=== PATIENT | female | born 1945 | race Caucasian/White ===

== ENCOUNTER 2017-03-19 10:26 | Emergency (ER) | payer MEDICARE, OTHER ==
[~2017-03-19] VITALS: Ht 162.6 cm; Wt 86.2 kg
[~2017-03-19 10:26] MED LIST: AMLODIPINE BESY10 MG PO; ARMOUR THYROID180 MG PO; FLUCONAZOLE200 MG PO; IBUPROFEN600 MG PO; METAFOLBIC TAB1 EACH PO
== END 2017-03-19 10:46 | disposition home or self-care (01) ==
LOC: ED 10:26
DX: S81.832A Puncture wound without foreign body, left lower leg, initial encounter (principal); Z00.8 Encounter for other general examination; W22.8XXA Striking against or struck by other objects, initial encounter

== ENCOUNTER 2020-01-09 12:10 | Emergency (ER) | payer MEDICARE, OTHER ==
[~2020-01-09] VITALS: Ht 162.6 cm; Wt 86.2 kg
--- OUTSIDE RECORDS SUMMARY | ~2020-01-09 | XMS | Encounter Summary ---
Demographics + + + | Address | [address] | | | [place] [address] | + + + | Home Phone | | + + + | Preferred Language | Unknown | + + + | Marital Status | | + + + | Adventism Affiliation | 1013 | + + + | Race | Unknown | + + + | Ethnic Group | Unknown | + + + Author + + + | Author | [facility] | | | and [place] | + + + | Organization | [facility] | | | and [place] | + + + | Address | Unknown | + + + | Phone | Unavailable | + + + Support + + +---------+ + | Name | Relationship | Address | Phone | + + +---------+ + | Sue Lombardo | ECON | Unknown | | + + +---------+ + Care Team Providers + +------+ + | Care Telephone Lineworker Name | Role | Phone | + +------+ + | Thi Hutton MD | PCP | | + +------+ + Encounter Details +--------+ + + + + | Date | Type | Department | Care Team | Description | +--------+ + + + + | 05/21/ | Orders Only | [facility] | Brice Odonnell | Lumbar radiculopathy | | 2018 | | PHYSIATRY [address] | [address] | (Primary Dx) | | | | [address] | [address] [place], [place] | | | | | [place] | [address] | | | | | [address] | | | | | | [phone] | | | +--------+ + + + + Social History + +-------+ +--------+------+ | Tobacco Use | Types | Packs/Day | Years | Date | | | | | Used | | + +-------+ +--------+------+ | Never Smoker | | | | | + +-------+ +--------+------+ + +---+---+---+ | Smokeless Tobacco: | | | | | Never Used | | | | + +---+---+---+ + + +---------+ + | Alcohol Use | Drinks/Week | oz/Week | Comments | + + +---------+ + | No | | | | + + +---------+ + + + + | Sex Assigned at | Date Recorded | | | | + + + | Not on file | | + + + + + + + | Job Start Date | Occupation | Industry | + + + + | Not on file | Not on file | Not on file | + + + + + + + + | Travel History | Travel Start | Travel End | + + + + + + | No recent travel history available. | + + documented as of this encounter Plan of Treatment +--------+---------+ + + + | Date | Type | Specialty | Care Team | Description | +--------+---------+ + + + | 06/27/ | Office | Nephrology | Pillo Condon MD | | | 2020 | Visit | | [address] [facility] | | | | | | [address] [facility] | | | | | | [address] | | | | | | | | +--------+---------+ + + + documented as of this encounter Results FL JANKI Lumbar Transforaminal (06/05/2018 2:54 PM PDT) + + | Specimen | + + | | + + + + + | Narrative | Performed At | + + + | 06/05/2018 | [facility] | | Transforaminal Epidural Steroid InjectionDiagnosis: Lumbar | | | radiculopathyICD-10 Code M54.16 Jojo Gracia presents to the | | | fluoroscopy suite for a fluoroscopically-guided left L4-L5 | | | transforaminal epidural steroid injection as part of conservative | | | management for chronic pain with lumbar radiculopathy and degenerative | | | disc disease. After informed consent was obtained, the patient lay | | | in the prone position on the fluoroscopy table. The area was | | | identified under fluoroscopic guidance. The area was prepped and | | | draped in sterile fashion. A 25-gauge, 1.5-inch needle was inserted | | | into this region and approximately 3 mL of buffered 1% lidocaine was | | | infused. Then, a 22-gauge spinal needle was inserted into the | | | posterior superior transforaminal space and advanced into the epidural | | | space under fluoroscopic guidance. Confirmation into the epidural | | | space was obtained with infusion of approximately 1 mL of Omnipaque | | | contrast which showed epidural flow as well as nerve sheath flow. | | | Then, a combination of 1.5 mL of 1% lidocaine and 1.5 mL of 6 | | | mg/mL betamethasone was infused. The patient tolerated the procedure | | | well without complications. Pre- and post-procedure blood pressures | | | were stable. The patient was given verbal as well as written | | | follow-up instructions. Prior to the start of the procedure, the | | | following were performed and/or verified, including correct patient | | | identity, correct site/side marked and visible, agreement on the | | | procedure to be done, correct patient positioning and an accurate | | | procedure consent form. Any safety precautions based on clinical | | | history and/or medication use have been addressed. I personally | | | performed the procedure above. Estimated blood loss: | | | MinimalComplications: NoneFindings: As expectedAnesthesia: Local | | | 1% Lidocaine | | |addressed. | | |I personally performed the procedure above. | | | | | |Estimated blood loss: Minimal | | |Complications: None | | |Findings: As expected | | |Anesthesia: Local 1% Lidocaine | | | | | + + + + +---------+ + + | Performing | Address | City/State[facility] | Phone Number | | Organization | | | | + +---------+ + + | [facility] | | | | + +---------+ + + documented in this encounter Visit Diagnoses + + | Diagnosis | + + | Lumbar radiculopathy - Primary Thoracic or lumbosacral neuritis or radiculitis, | | unspecified | + + documented in this encounter"
--- OUTSIDE RECORDS SUMMARY | ~2020-01-09 | XMS | Encounter Summary ---
Demographics + + + | Address | [address] | | | [place] [address] | + + + | Home Phone | | + + + | Preferred Language | Unknown | + + + | Marital Status | | + + + | Lutheran Affiliation | 1013 | + + + | Race | Unknown | + + + | Ethnic Group | Unknown | + + + Author + + + | Author | [facility] | | | and [place] | + + + | Organization | [facility] | | | and [place] | + + + | Address | Unknown | + + + | Phone | Unavailable | + + + Support + + +---------+ + | Name | Relationship | Address | Phone | + + +---------+ + | Sue Grupo | ECON | Unknown | | + + +---------+ + Care Team Providers + +------+ + | Care Window Systems Administrator Name | Role | Phone | + +------+ + | Thi Hutton MD | PCP | | + +------+ + Encounter Details +--------+ + + + + | Date | Type | Department | Care Team | Description | +--------+ + + + + | 06/16/ | [facility] | [facility] | Steve Vogel, | Lumbar radiculopathy | | 2019 | Encounter | MED CTR XRAY [address] | PA-C [address] | | | | | [place] | [address] [place] | | | | | [place] [address] | [place] [address] | | | | | [phone] | [phone] | | | | | | | | +--------+ + + + [...] + + documented as of this encounter Medications at Time of Discharge + + + +---------+ + + | Medication | Sig | Dispensed | Refills | Start | End Date | | | | | | Date | | + + + +---------+ + + | cholecalciferol | Take 2,000 Units by | | 0 | | | | (CHOLECALCIFEROL) | mouth Daily. | | | | | | 1000 units TABS | | | | | | + + + +---------+ + + | DHEA 50 MG TABS | Take 50 mg by mouth | | 0 | | | | | Daily. | | | | | + + + +---------+ + + | | Take 1 capsule by | | 4 | 04/21/20 | | | hydroCHLOROthiazide | mouth Daily. | | | 18 | | | (MICROZIDE) 12.5 MG | | | | | | | capsule | | | | | | + + + +---------+ + + | lisinopril | Take 40 mg by mouth | | 0 | | | | (PRINIVIL,ZESTRIL) | Daily. | | | | | | 40 MG tablet | | | | | | + + + +---------+ + + | metoprolol | TK 1 T PO QD | | 4 | 01/09/20 | | | succinate | | | | 19 | | | (TOPROL-XL) 50 mg 24 | | | | | | | hr tablet | | | | | | + + + +---------+ + + | thyroid (ARMOUR | Take by mouth. | | 0 | | | | THYROID) 120 MG | | | | | | | tablet | | | | | | + + + +---------+ + + | ketorolac | TAKE 1 TABLET BY | | 0 | 07/17/20 | | | (TORADOL) 10 MG | MOUTH 3 TIMES DAILY | | | 18 | 0 | | tablet | NEEDED FOR PAIN | | | | | + + + +---------+ + + | lisinopril | Take 20 mg by mouth | | 0 | | | | (PRINIVIL, ZESTRIL) | Daily. | | | | 0 | | 20 mg tablet | | | | | | + + + +---------+ + + | metoprolol | Take 25 mg by mouth | | 0 | | | | succinate | Daily. | | | | 0 | | (TOPROL-XL) 25 mg 24 | | | | | | | hr tablet | | | | | | + + + +---------+ + + | metoprolol | TK 1 T PO QD | | 4 | 07/07/20 | | | succinate | | | | 18 | 0 | | (TOPROL-XL) 25 mg 24 | | | | | | | hr tablet | | | | | | + + + +---------+ + + | nitrofurantoin | | | 0 | 11/11/19 | | | (MACROBID) 100 mg | | | | 19 | 0 | | capsule | | | | | | + + + +---------+ + + | predniSONE | 1 tab PO 13 hours | 3 | 0 | 04/23/20 | | | (DELTASONE) 50 mg | before procedure, 1 | tablet | | 19 | 0 | | tablet | tab PO 7 hours | | | | | | | before procedure, 1 | | | | | | | tab PO 1 hour before | | | | | | | procedure | | | | | + + + +---------+ + + | | TK 1 T PO BID FOR 14 | | 0 | 04/15/20 | | | sulfamethoxazole-tri | DAYS | | | 19 | 0 | | methoprim (BACTRIM | | | | | | | DS) 800-160 mg per | | | | | | | tablet | | | | | | + + + +---------+ + + | thyroid (ARMOUR) | Take by mouth | | 0 | | | | 120 MG tablet | Daily. | | | | 0 | + + + +---------+ + + | traMADol (ULTRAM) | take 1 tablet by | | 0 | 07/19/20 | | | 50 mg tablet | mouth every 8 hours | | | 18 | 0 | | | if needed for pain | | | | | + + + +---------+ + + documented as of this encounter Plan of Treatment +--------+---------+ + + + | Date | Type | Specialty | Care Team | Description | +--------+---------+ + + + | 06/27/ | Office | Nephrology | Pillo Condon MD | | | 2020 | Visit | | [address] [facility] | | | | | | [address] [place] | | | | | | [address] | | | | | | | | +--------+---------+ + + + documented as of this encounter Procedures + +--------+ + + + | Procedure Name | Priori | Date/Time | Associated Diagnosis | Comments | | | ty | | | | + +--------+ + + + | XR LUMBAR SPINE 4 + | Routin | 06/16/2019 | Lumbar | Results for this | | VW | e | 10:42 AM | radiculopathy | procedure are in the | | | | PDT | | results section. | + +--------+ + + + documented in this encounter Results XR Lumbar Spine 4 + Vw (06/16/2019 10:42 AM PDT) + + | Specimen | + + | | + + + + + | Impressions | Performed At | + + + | Degenerative changes, no instability. Dictated and Signed by: | [facility] | | Paolo [place] MD Electronically signed: 06/16/2019 12:31 PM | | + + + + + + | Narrative | Performed At | + + + | XR LUMBAR SPINE 4 + VW 06/16/2019 10:42 AM HISTORY: back pain. | [facility] | | COMPARISON: Multiple priors. FINDINGS: Mild spondylosis is | | | visualized. Grade 1 anterolisthesis is noted of L3 over L4 with no | | | instability during flexion and extension. Bone mineralization is | | | normal. Vertebral body height are preserved with no evidence for | | | compression fractures. Mild disc narrowing is at L3-4. Severe disc | | | narrowing is at L4-5. Multilevel facet sclerosis and hypertrophy are | | | present. Visualized ribs and pelvic osseous structures show no acute | | | findings. Calcifications are anterior to the L3-4 disc space. There | | | is mild atherosclerosis. | | + + + + + | Procedure Note | + + | Manav, Rad Results In - 06/16/2019 12:34 PM PDT XR LUMBAR SPINE 4 + VW 06/16/2019 10:42 | | AMHISTORY: back pain.COMPARISON: Multiple priors.FINDINGS:Mild spondylosis is | | visualized. Grade 1 anterolisthesis is noted of L3 over L4with no instability during | | flexion and extension. Bone mineralization is normal.Vertebral body height are preserved | | with no evidence for compression fractures.Mild disc narrowing is at L3-4. Severe disc | | narrowing is at L4-5. Multilevelfacet sclerosis and hypertrophy are present. Visualized | | ribs and pelvic osseousstructures show no acute findings. Calcifications are anterior to | | the L3-4 discspace. There is mild atherosclerosis.IMPRESSION: Degenerative changes, no | | instability.Dictated and Signed by: Paolo [place] MD Electronically signed: 06/16/2019 | | 12:31 PM | |Mild disc narrowing is at L3-4. Severe disc narrowing is at L4-5. Multilevel | |facet sclerosis and hypertrophy are present. Visualized ribs and pelvic osseous | |structures show no acute findings. Calcifications are anterior to the L3-4 disc | |space. There is mild atherosclerosis. | | | |IMPRESSION: | |Degenerative changes, no instability. | | | |Dictated and Signed by: Paolo [place] MD | | Electronically signed: 06/16/2019 12:31 PM | + + + +---------+ + + | Performing | Address | City/State/Zipcode | Phone Number | | Organization | | | | + +---------+ + + | [facility] | | | | + +---------+ + + documented in this encounter Visit Diagnoses + + | Diagnosis | + + | Lumbar radiculopathy Thoracic or lumbosacral neuritis or radiculitis, unspecified | + + documented in this encounter"
--- OUTSIDE RECORDS SUMMARY | ~2020-01-09 | XMS | Encounter Summary ---
Demographics + + + | Address | [address] | | | [place] [address] | + + + | Home Phone | | + + + | Preferred Language | Unknown | + + + | Marital Status | | + + + | Mandaen Affiliation | 1013 | + + + | Race | Unknown | + + + | Ethnic Group | Unknown | + + + Author + + + | Author | [facility] | | | and [place] | + + + | Organization | [facility] | | [...] Team Providers + +------+ + | Care Non Profit Job Titles Name | Role | Phone | + +------+ + | Thi Hutton MD | PCP | | + +------+ + Encounter Details +--------+ + + + + | Date | Type | Department | Care Team | Description | +--------+ + + + + | 12/20/ | Orders Only | [facility] | Pillo Condon MD | Essential (primary) | | 2020 | | NEPHROLOGY [place] | [address] [place] | hypertension | | | | [address] [place] | [address] [place], [place] | (Primary Dx); | | | | [address] [place], [place] | [address] | Polycystic kidney; | | | | [address] | | CKD (chronic kidney | | | | [phone] | | disease) stage 3, | | | | | | GFR 30-59 ml/min | | | | | | ([facility]); Persistent | | | | | | proteinuria | +--------+ + + + + Social [...] 2020 | Visit | | [address] [facility] | | | | | | [address] [place], [place] | | | | | | [address] | | | | | | | | +--------+---------+ + + + + +------+--------+ + + | Name | Type | Priori | Associated Diagnoses | Order Schedule | | | | ty | | | + +------+--------+ + + | Renal Function Panel | Lab | Routin | Essential | Expected: | | | | e | (primary) | 06/22/2020, Expires: | | | | | hypertension | 12/20/2020 | | | | | Polycystic kidney | | | | | | CKD (chronic kidney | | | | | | disease) stage 3, | | | | | | GFR 30-59 ml/min | | | | | | (HCC) Persistent | | | | | | proteinuria | | + +------+--------+ + + | CBC with | Lab | Routin | Essential | Expected: | | Differential | | e | (primary) | 06/22/2020, Expires: | | | | | hypertension | 12/20/2020 | | | | | Polycystic kidney | | | | | | CKD (chronic kidney | | | | | | disease) stage 3, | | | | | | GFR 30-59 ml/min | | | | | | (HCC) Persistent | | | | | | proteinuria | | + +------+--------+ + + | Protein/Creatinine | Lab | Routin | Essential | Expected: | | Ratio, Urine | | e | (primary) | 06/22/2020, Expires: | | | | | hypertension | 12/20/2020 | | | | | Polycystic kidney | | | | | | CKD (chronic kidney | | | | | | disease) stage 3, | | | | | | GFR 30-59 ml/min | | | | | | (HCC) Persistent | | | | | | proteinuria | | + +------+--------+ + + | Uric Acid | Lab | Routin | Essential | Expected: | | | | e | (primary) | 06/22/2020, Expires: | | | | | hypertension | 12/20/2020 | | | | | Polycystic kidney | | | | | | CKD (chronic kidney | | | | | | disease) stage 3, | | | | | | GFR 30-59 ml/min | | | | | | (HCC) Persistent | | | | | | proteinuria | | + +------+--------+ + + documented as of this encounter Visit Diagnoses + + | Diagnosis | + + | Essential (primary) hypertension - Primary Unspecified essential hypertension | + + | Polycystic kidney Polycystic kidney, unspecified type | + + | CKD (chronic kidney disease) stage 3, GFR 30-59 ml/min (HCC) Chronic kidney disease, | | Stage III (moderate) | + + | Persistent proteinuria Proteinuria | + + documented in this encounter"
--- OUTSIDE RECORDS SUMMARY | ~2020-01-09 | XMS | Encounter Summary ---
Demographics + + + | Address | [address] | | | [place] [address] | + + + | Home Phone | | + + + | Preferred Language | Unknown | + + + | Marital Status | | + + + | Protestant Affiliation | 1013 | + + + | Race | Unknown | + + + | Ethnic Group | Unknown | + + + Author + + + | Author | [facility] | | | and [place] | + + + | Organization | [facility] | | [...] Team Providers + +------+ + | Care Filter Press Pumper Name | Role | Phone | + +------+ + | Thi Hutton MD | PCP | | + +------+ + Reason for Referral Evaluate & Treat (Routine) +--------+ + + + + + | Status | Reason | Specialty | Diagnoses / | Referred By | Referred To | | | | | Procedures | Contact | Contact | +--------+ + + + + + | Closed | Specialty | Physical | Diagnoses | Mamta Gibsonnberg, | | | Services | Medicine and | Lumbar | Stefania | Brice Garcia MD | | | Required | Rehabilitatio | radiculopath | TAMIE Steinberg | [address] | | | | n | y | [address] [place] | | | | | [address] | [place], [place] | | | | | | [address] | [address] Phone: | | | | | | [address] | [phone] | | | | | | [place], | Fax: | | | | | | [place] [address] | [phone] | | | | | | Phone: | | | | | | | [phone] | | | | | | | Fax: | | | | | | | [phone] | | +--------+ + + + + + Reason for Visit + + + | Reason | Comments | + + + | New Patient | | + + + | Back Pain | | + + + Evaluate & Treat (Routine) +--------+--------+ + + + + | Status | Reason | Specialty | Diagnoses / | Referred By | Referred To | | | | | Procedures | Contact | Contact | +--------+--------+ + + + + | Closed | | Neurosurgery | Diagnoses | Anni, | [place] | | | | | Spinal | Thi Perry, | Cassy, [address] | | | | | stenosis of | MD [address] | | | | | lumbar | [place] | [place], [place] | | | | | region, | [place], | [address] | | | | | unspecified | [place] | Phone: | | | | | whether | [address] | [phone] | | | | | neurogenic | Phone: | Fax: | | | | | claudication | [phone] | [phone] | | | | | present | Fax: | | | | | | | [phone] | | +--------+--------+ + + + + Encounter Details +--------+---------+ + + + | Date | Type | Department | Care Team | Description | +--------+---------+ + + + | 05/08/ | Office | [facility] | Stefania Gibson | Lumbar radiculopathy | | 2018 | Visit | NEUROSURGERY [address] | TAMIE Steinberg [address] | (Primary Dx); | | | | [address] | [address] [address] | Spondylolisthesis of | | | | [place], [place] | [address] [place], [place] | lumbar region; | | | | [address] | [address] | Degenerative disc | | | | [phone] | | disease, lumbar | +--------+---------+ + + + Social History + +-------+ [...] + + documented as of this encounter Last Filed Vital Signs + + + + + | Vital Sign | Reading | Time Taken | Comments | + + + + + | Blood Pressure | 139/94 | 05/08/2018 12:41 PM | | | | | PDT | | + + + + + | Pulse | 82 | 05/08/2018 12:41 PM | | | | | PDT | | + + + + + | Temperature | - | - | | + + + + + | Respiratory Rate | - | - | | + + + + + | Oxygen Saturation | - | - | | + + + + + | Inhaled Oxygen | - | - | | | Concentration | | | | + + + + + | Weight | 86.5 kg (190 lb 11.2 | 05/08/2018 12:41 PM | | | | oz) | PDT | | + + + + + | Height | 161.3 cm (5' 3.5") | 05/08/2018 12:41 PM | | | | | PDT | | + + + + + | Body Mass Index | 33.25 | 05/08/2018 12:41 PM | | | | | PDT | | + + + + + documented in this encounter Patient Instructions Patient Instructions Marisol Solis, Cement Paver - 05/08/2018 12:30 PM PDTIt was a ple asure to see you today. Here is what we discussed. 1. I have ordered a left L4-5 epidural steroid injection. You will be contacted to alissa bell this. 2. I also placed a referral for Dr. Odonnell's office for follow up after the injection. 3. Please obtain new thoracic x-rays after this office visit at our hospital. We will call you with results and may consider a thoracic MRI depending on xray results. documented in this encounter Progress Notes Stefania Gibson PA-C - 05/08/2018 12:30 PM PDTFormatting of this note might be diffe rent from the original. Kunal Gibson PA-C [address] [place] [address], [address] [place], [place] [address] FAX: [phone] NEUROSURGERY HISTORY AND PHYSICAL EXAMINATION CHIEF COMPLAINT: Chief Complaint Patient presents with New Patient Back Pain HISTORY OF PRESENT ILLNESS: The patient is a 73 y.o. female with the complaint of back and left leg pain symptoms that began 2-3 months ago. The patient describes an event that 2 mon ths ago when she went to stand up and her left leg gave out. When this happened she was unab le to put weight on her left leg or straighten it out. She has improved somewhat since this event in February. At the same time she reports mid thoracic pain onset that has not improved. The symptoms have been gradually improving. She rates the pain as mild to severe. The sym ptoms are intermittent. She describes the pain as sharp, shooting and aching. 20% of her s ymptoms are from her lumbar spine. The patient complains of pain in the upper thoracic regio n. The patient describes leg symptoms that occur on primarily on the left. The leg symptoms a ccount for 80% of her symptoms. The leg symptoms are constant, and the symptoms travel from the back to left S1. The patient also describes the loss of the ability to walk distances without sitting, numbness of the leg and weakness of the leg. The patient does report any change in bowel or bladder function recently with loss of bladd er control. The patient reports symptoms of saddle anesthesia. The patient is currently emmanuel ng evaluated for arrhythmia with tachycardia. Her symptoms improve with rest. Her symptoms worsen with standing, sitting and walking. She has tried Chiropractic and NSAIDS. The patient is not currently taking opioids. PAST MEDICAL HISTORY: Past Medical History: Diagnosis Date Anemia Back pain Cerebral hemorrhage (HCC) 1990 Degenerative disc disease, lumbar Essential (primary) hypertension Fracture of right toe History of blood transfusion History of fracture of left ankle History of heart attack 1990 Hypothyroidism (acquired) Lumbar pain Neck fracture (HCC) Osteoarthritis Osteopenia of multiple sites Polycystic kidney Primary osteoarthritis of both knees Seasonal allergies Spinal stenosis of lumbar region, unspecified whether neurogenic claudication present Stroke (HCC) Thyroid condition PAST SURGICAL HISTORY: Past Surgical History: Procedure Laterality Date BLADDER SUSPENSION SECTION PARTIAL HYSTERECTOMY RECTAL PROLAPSE REPAIR CURRENT MEDICATIONS: Current Outpatient Prescriptions Medication Sig Dispense Refill hydroCHLOROthiazide (MICROZIDE) 12.5 MG capsule Take 1 capsule by mouth Daily. 4 lisinopril (PRINIVIL, ZESTRIL) 20 mg tablet Take 1 tablet by mouth Daily. 12 thyroid (ARMOUR) 180 MG tablet Take 180 mg by mouth every morning (before breakfast). No current facility-administered medications for this visit. ALLERGIES: Allergies Allergen Reactions Meperidine Anaphylaxis Morphine Anaphylaxis Codeine Other (See Comments) Reaction not specified in outside medical records Morphine And Related Nausea And Vomiting and Other (See Comments) Blindness and deaf one sided. Baclofen Other (See Comments) Reaction not specified in outside medical records Carisoprodol Other (See Comments) Reaction not specified in outside medical records Cyclobenzaprine Other (See Comments) Reaction not specified in outside medical records Methocarbamol Other (See Comments) Reaction not specified in outside medical records Morphine And Related Other (See Comments) Reaction not specified in outside medical records Tizanidine Other (See Comments) Reaction not specified in outside medical records SOCIAL HISTORY: The patient reports that she has never smoked. She has never used smokeless tobacco. She r eports that she does not drink alcohol or use drugs. FAMILY HISTORY: Family History Problem Relation Age of Onset Cancer Mother Melanoma Diabetes Mother Hypertension Mother Heart disease Mother Other (see comment) Father Nayana Gehrig's Disease Alcohol abuse Brother Hypertension Maternal Grandmother Hypertension Other Heart disease Other Diabetes Other No Known Problems Brother REVIEW OF SYSTEMS: GENERALLY: No fever, no night sweats, no anemia, no fatigue, no recent profound weight ch anges. EYES: No eye problems, + use of corrective lenses, no eye injury, no double vision, no bli ndness. EARS, NOSE, AND THROAT: No changes in taste or smell, no hearing difficulty, + ringing in the ears, no ear drainage, no dizziness, no voice changes, no difficulty swallowing, no sign ificant snoring, no sleep apnea, no sinus problems, no major dental work. NEUROLOGICALLY: Please see the review of systems discussed above in the history of present illness. In addition, the patient has numbness/pain of legs, weakness, pain in back. PSYCHIATRIC: No depression, no sleep disorders, no anxiety, no bipolar disorder, no psycho tic episodes. CARDIOVASCULAR: No heart attacks, no heart murmur, + heart fluttering, no chest pain, no a nkle swelling. LUNG DISEASE: No shortness of breath, no cough, no tuberculosis, no bloody cough, no asth ma, no emphysema/COPD. GASTROINTESTINAL: No bowel disease, no nausea or vomiting, no rectal bleeding, no constipa tion, no stool incontinence, no liver disease, no gallbladder disease, no abdominal pain, no ulcers. KIDNEY DISEASE: + urinary frequency, no painful or difficult urination, no incontinence. ENDOCRINE: No diabetes, no thyroid disease, no osteopenia or osteoporosis, no breast drain age. SKIN: No breast lumps, no skin changes, no rashes, no itches. HEMATOLOGIC/LYMPHATIC: No enlarged lymph nodes, no easy or unusual bleeding, no personal h istory of cancer. RHEUMATOLOGIC: No joint arthritis, no rheumatoid arthritis. PHYSICAL EXAMINATION: Blood pressure (!) 139/94, pulse 82, height 1.613 m (5' 3.5"), weight 86.5 kg (190 lb 11.2 oz). Body mass index is 33.25 kg/m. GENERAL: Jojo Gracia is in no acute distress with unlabored respirations. The patient d oes appear uncomfortable throughout the exam today. HEENT: Head: Normocephalic/atraumatic with no areas of recent trauma. Eyes: Normal sclerae without icterus. Ears: No drainage or tenderness. Nasopharnyx: Clear without drainage. Oropharnyx: Clear without erythema. NECK (ANTERIOR): Supple and without palpable masses. CHEST: Clear to ausculation without crackles or wheeze. HEART: Regular rate and rhythm without murmurs. ABDOMEN: Soft, non-tender, non-distended, and without palpable masses. The patient is obese . SPINE: There is no midline tenderness of the cervical spine. There is tenderness over T8-T10 levels. The lumbar spine shows there is tenderness in the midline of the L5, S1 levels. To palpati on, there is no significant myofascial tenderness. There is no significant pain to provacative testing of the SI joint. There is no trochanter bursa. There is no major deformity noted. EXTREMITIES: No cyanosis, clubbing, or edema. Distal pulses are palpable. NEUROLOGICAL EXAM: MENTAL STATUS: The patient is awake, alert, and oriented. She follows simple and complex commands. Her speech is fluent, she comprehends speech well, and she repeats well. She has no apparent deficits with short or terminal operator memory. CRANIAL NERVES: Fundoscopic Exam: The optic disc is sharp. Normal vascular pattern is visualized II: Acuity is intact. Cortez are full to confrontation. III, IV, : The pupils are reactive. Extraocular movements are intact. No ptosis is note d. V: Facial sensation is intact and symmetric. VII: Facial movements are symmetric. VIII: Hearing is intact bilaterally. IX, X: The uvula and palate move appropriately. XI: Shrug is equal bilaterally. XII: Tongue protrusion is midline. MOTOR EXAM: (5 IS NORMAL) * Indicates pain limited MUSCLE/ MOVEMENT: RIGHT LEFT Deltoids 5 5 Hip Flexion 5 5 Hip Extension 5 5 Knee Flexion 5 5 Knee Extension 5 4 Dorsiflexion 5 4 Extensor Hallicus Longus 5 5 Plantarflexion 5 4 SENSORY EXAM: Sensory exam shows no diminished sensation to light touch or pain throughout the upper and lower extremities. REFLEXES: (2 OR 2+ IS NORMAL) REFLEX: RIGHT LEFT PATELLAR 2+ 2+ ACHILLES 2 2 STACK'S ABSENT ABSENT PLANTAR DOWNGOING DOWNGOING GAIT: Gait is steady. Unable to tip toe on left side. Able to heel walk. PERIPHERAL NERVE/MISC: Straight leg raise causes L4 radiculopathy on the left. Zia's test of the hips is negative bilaterally. TEST AND RADIOGRAPHIC REVIEW: The patient's imaging was reviewed in detail with the patient today during the visit. The Lumbar MRI from 03/18/2018 shows L3-4-4 millimeter anterolisthesis with disc bulge, facet hyp ertrophy and facet subluxation causing moderately severe central canal stenosis. L4-5 disc height loss with broad-based disc bulge causing mild bilateral neural foraminal narrowing an d likely subluxed facet joints. Lumbar x-rays show spondylolisthesis at L3 over 4 on flexion extension views. This is larg yahir stable on flexion and extension. ASSESSMENT: NEUROSURGICAL DIAGNOSES: Encounter Diagnoses Name Primary? Lumbar radiculopathy Yes Spondylolisthesis of lumbar region Degenerative disc disease, lumbar GENERAL DIAGNOSES: Past Medical History: Diagnosis Date Anemia Back pain Cerebral hemorrhage (HCC) 1990 Degenerative disc disease, lumbar Essential (primary) hypertension Fracture of right toe History of blood transfusion History of fracture of left ankle History of heart attack 1990 Hypothyroidism (acquired) Lumbar pain Neck fracture (HCC) Osteoarthritis Osteopenia of multiple sites Polycystic kidney Primary osteoarthritis of both knees Seasonal allergies Spinal stenosis of lumbar region, unspecified whether neurogenic claudication present Stroke (HCC) Thyroid condition PLAN: Jojo Gracia presented today, and it was a pleasure seeing this patient and assessing her neurologic problems. The patient has a history of severe low back pain, lower extremity weakness, saddle anesthe norbert and loss of bladder control since February 2018 which has improved and stabilized. Right now she reports primarily left alteral thigh pain to the knee in a L4 dermatome with possible a dditional L5 or S1 involvement. Imaging shows moderate to severe spinal stenosis at L3-4 wh ere a grade 1 spondylolisthesis is evident. L4-L5 shows severe disc degeneration and disc h eight loss. Lumbar imaging findings are not conclusive for the cause of loss of bowel and b ladder control. Patient also has reports of significant mid to lower thoracic spine pain. I recommend we extend workup to the thoracic spine to rule out compression fracture or spina l stenosis with an x-ray possibly followed by MRI. The patient has stable symptoms but they continue to cause a great deal of impairment and harm to the patient's quality of life. I had a lengthy discussion with the patient about her options for care including surgical a nd non-surgical options. In discussing the surgical options, we discussed in detail the patient's options for a LAIF at L3-5 with anterior instrumentation and posterior surgical fusion. We answered a number of questions about surgery and the different available techniques. She voices concerns abou t her heart evaluation that is revealing tachycardia with arrhythmia is. She is unsure if t he treatment plan at this point for her heart. The patient understands that in most instances the recovery from surgery can be lengthy and sometimes difficult. I have ordered a left L4-5 TFESI. The patient would like to continue conservative care and return to discuss surgery or addit ional treatment options if the symptoms worsen. I, Stefania Gibson PA-C, personally performed the services described in this document ation, as scribed by SEPIDEH Morales in my presence, and it is both accurate and complete . Kunal Gibson PA-C 05/08/18 ELECTRONICALLY SIGNED BY: Kunal Gibson PA-C, 05/08/2018 13:35 documented in this encounter Plan of Treatment +--------+---------+ + + + | Date | Type | Specialty | Care Team | Description | +--------+---------+ + + + | 06/27/ | Office | Nephrology | Pillo Condon MD | | | 2019 | Visit | | [address] [facility] | | | | | | [address] [place] | | | | | | [address] | | | | | | | | +--------+---------+ + + + + + +--------+ + + | Name | Type | Priori | Associated Diagnoses | Order Schedule | | | | ty | | | + + +--------+ + + | ROULA | Outpatient | Routin | Lumbar | Ordered: 05/08/2018 | | | Referral | e | radiculopathy | | + + +--------+ + + documented as of this encounter Results XR Thoracic Spine 4 + Vw (05/08/2018 2:10 PM PDT) + + | Specimen | + + | | + + + + + | Narrative | Performed At | + + + | XR THORACIC SPINE 4 + VW 05/08/2018 2:10 PM HISTORY: Thoracic | [facility] | | pain. COMPARISON: None. FINDINGS: Moderate spondylosis is | | | present. Bone mineralization is normal. Vertebral body height are | | | preserved with no evidence for compression fractures. Multilevel mild | | | to moderate disc narrowing are present. Facet joints are intact. | | | Visualized chest and abdomen show no acute findings. Soft tissue | | | structures are unremarkable. IMPRESSION - Moderate spondylosis. | | | Dictated and Signed by: Paolo [place] MD Electronically signed: | | | 05/08/2018 2:12 PM | | + + + + + | Procedure Note | + + | Manav, Rad Results In - 05/08/2018 2:15 PM PDT XR THORACIC SPINE 4 + VW 05/08/2018 2:10 | | PMHISTORY: Thoracic pain.COMPARISON: None.FINDINGS:Moderate spondylosis is present. | | Bone mineralization is normal. Vertebral bodyheight are preserved with no evidence for | | compression fractures. Multilevel mildto moderate disc narrowing are present. Facet | | joints are intact. Visualizedchest and abdomen show no acute findings. Soft tissue | | structures areunremarkable.IMPRESSION -Moderate spondylosis.Dictated and Signed by: | | Paolo [place] MD Electronically signed: 05/08/2018 2:12 PM | |Moderate spondylosis is present. Bone mineralization is normal. Vertebral body | |height are preserved with no evidence for compression fractures. Multilevel mild | |to moderate disc narrowing are present. Facet joints are intact. Visualized | |chest and abdomen show no acute findings. Soft tissue structures are | |unremarkable. | | | |IMPRESSION - | |Moderate spondylosis. | | | |Dictated and Signed by: Paolo [place] MD | | Electronically signed: 05/08/2018 2:12 PM | + + + +---------+ + [...] radiculitis, | | unspecified | + + | Spondylolisthesis of lumbar region Acquired spondylolisthesis | + + | Degenerative disc disease, lumbar Degeneration of lumbar or lumbosacral | | intervertebral disc | + + documented in this encounter
--- OUTSIDE RECORDS SUMMARY | ~2020-01-09 | XMS | Encounter Summary ---
Demographics + + + | Address | [address] | | | [place] [address] | + + + | Home Phone | | + + + | Preferred Language | Unknown | + + + | Marital Status | | + + + | Restorationist Affiliation | 1013 | + + + | Race | Unknown | + + + | Ethnic Group | Unknown | + + + Author + + + | Author | [facility] | | | and [place] | + + + | Organization | [facility] | | | and [...] Team Providers + +------+ + | Care Director Sales And Marketing Name | Role | Phone | + +------+ + | Thi Hutton MD | PCP | | + +------+ + Reason for Visit Service/Procedure (Routine) +--------+--------+ + + + + | Status | Reason | Specialty | Diagnoses / | Referred By | Referred To | | | | | Procedures | Contact | Contact | +--------+--------+ + + + + | Closed | | Radiology | Diagnoses | | [facility] | | | | | Lumbar | Belle, | [address] | | | | | radiculopath | Brice T, MD | [place], | | | | | y | [address] | [place] | | | | | Procedures | [place] | [address] | | | | | [place] | [place], [place] | Phone: | | | | | DX/THER SBST | [address] | [phone] | | | | | INTRLMNR | Phone: | Fax: | | | | | LMBR/SAC | [phone] | [phone] | | | | | W/IMG GDN | Fax: | | | | | | [place] | [phone] | | | | | | TRIAMCINOLON | | | | | | | E ACET INJ | | | | | | | NOS, 10 MG | | | | | | | L4-L5 ILESI | | | | | | | Left of Mid. | | | | | | | Schedule | | | | | | | for a 5 | | | | | | | o'clock | | | +--------+--------+ + + + + Encounter Details +--------+ + + + + | Date | Type | Department | Care Team | Description | +--------+ + + + + | 11/12/ | Hospital | [facility] | JaspreetSteve reardon, | Lumbar radiculopathy | | 2019 | Encounter | MED CTR XRAY [address] | PA-C [address] | | | | | [place] | [address] [place] | | | | | [place] [address] | [place] [address] | | | | | [phone] | [phone] | | | | | | | | | | | | Rehab Director Occupational Therapist, [facility] | | | | | | [place] | | +--------+ + + + + [...] this encounter Last Filed Vital Signs + +---------+ + + | Vital Sign | Reading | Time Taken | Comments | + +---------+ + + | Blood Pressure | 196/103 | 11/12/2018 2:56 PM | | | | | PDT | | + +---------+ + + | Pulse | 78 | 11/12/2018 2:56 PM | | | | | PDT | | + +---------+ + + | Temperature | - | - | | + +---------+ + + | Respiratory Rate | - | - | | + +---------+ + + | Oxygen Saturation | - | - | | + +---------+ + + | Inhaled Oxygen | - | - | | | Concentration | | | | + +---------+ + + | Weight | - | - | | + +---------+ + + | Height | - | - | | + +---------+ + + | Body Mass Index | - | - | | + +---------+ + + documented in this encounter Medications at Time of Discharge [...] 2020 | Visit | | [address] | | | | | | [address] [place] | | | | | | [address] | | | | | | | | +--------+---------+ + + + documented as of this encounter Procedures + +--------+ + + + | Procedure Name | Priori | Date/Time | Associated Diagnosis | Comments | | | ty | | | | + +--------+ + + + | FL EPIDURAL STEROID | Routin | 11/12/2018 | Lumbar | Results for this | | INJ LUMBAR SACRAL | e | 2:38 PM | radiculopathy | procedure are in the | | INTERLAMINAR | | PDT | | results section. | + +--------+ + + + documented in this encounter Results FL JANKI Lumbar Sacral Interlaminar (11/12/2018 2:38 PM PDT) + + | Specimen | + + | | + + + + + | Narrative | Performed At | + + + | | [facility] | | 11/12/2018LUMBAR INTERLAMINAR EPIDURAL STEROID INJECTION CLINICAL | | | HISTORY: ICD-10 CODE M54.16 LUMBAR RADICULOPATHY Jojo Gracia | | | presents to the fluoroscopy suite for a fluoroscopically-guided L4-L5 | | | interlaminar epidural steroid injection, left of midline, as part of | | | conservative management for chronic pain with lumbar radiculopathy and | | | degenerative disk disease. After informed consent was obtained, the | | | patient lay in the prone position on the fluoroscopy table. The area | | | was identified under fluoroscopic guidance. The area was prepped and | | | draped in sterile fashion. A 25-gauge, 1.5-inch needle was inserted | | | into this region and approximately 3 mL of buffered 1% lidocaine was | | | infused. Then a 22-gauge epidural needle was advanced into the | | | epidural space at the L4-L5 level. Confirmation into the epidural | | | space was obtained with loss of resistance, as well as infusion of | | | approximately 1 mL of iodinated contrast which initially seemed to | | | show intrathecal flow and the needle was repositioned until the | | | contrast spread appeared more consistent with epidural flow. Then, a | | | combination of 3 mL of normal saline and 1.5 mL of 10 mg/mL | | | dexamethasone was infused. The patient tolerated the procedure well | | | but afterward did have some paresthesias in the legs and felt "woozy". | | | She did not have any loss of strength in the legs. She did also | | | have a headache for a short time but this resolved quickly. Pre- and | | | post-procedure blood pressures were elevated but stable. We | | | monitored the patient's vitals including pulse-ox and blood pressure | | | and allowed the patient to rest in a Trendelenburg position on a | | | stretcher for approximately 30 minutes until her symptoms resolved. | | | She was able to ambulate on her own power before discharged and was | | | discharged into the care of her daughter. The patient was given | | | verbal as well as written follow-up instructions. She will contact us | | | if she continues to have any undesirable symptoms. Prior to the start | | | of the procedure, the following were performed and verified, including | | | correct patient identity, correct site/side marked and visible, | | | agreement on the procedure to be done, correct patient positioning and | | | an accurate procedure consent form. Any safety precautions based on | | | clinical history and/or medication use have been addressed. I | | | personally performed the procedure above. Estimated blood loss: | | | MinimalComplications: NoneFindings: As expectedAnesthesia: Local | | | 1% Lidocaine | | |I personally performed the procedure [...] unspecified | + + documented in this encounter Administered Medications + +--------+ +-------+------+------+ | Medication Order | MAR | Action | Dose | Rate | Site | | | Action | Date | | | | + +--------+ +-------+------+------+ | dexamethasone (PF) 10 mg/mL | Given | 11/13/19 | 10 mg | | | | injection 10 mg 10 mg, Other, | | 19 2:50 | | | | | ONCE, Sat11/12/18 at 1445, For 1 | | PM PDT | | | | | dose, When ordered IV push: | | | | | | | Dilute to 10-20 mL with NS and | | | | | | | give slowly over 1-2 minutes., | | | | | | + +--------+ +-------+------+------+ +---+---+ | | | +---+---+ + +-------+ +-------+---+---+ | iohexol (OMNIPAQUE 300) 300 | Given | 11/13/19 | 4 mLs | | | | mg/mL injection 4 mL 4 mL, | | 19 2:45 | | | | | Other, ONCE, Sat11/12/18 at 1445, | | PM PDT | | | | | For 1 dose | | | | | | + +-------+ +-------+---+---+ +---+---+ | | | +---+---+ + +-------+ +-------+---+ + | lidocaine buffered 0.9% | Given | 11/13/19 | 3 mLs | | Other | | injection 3 mL 3 mL, | | 19 2:40 | | | (Comment | | Intradermal, ONCE, 11/12/18 at | | PM PDT | | | ) | | 1445, For 1 dose | | | | | | + +-------+ +-------+---+ + +---+---+ | | | +---+---+ documented in this encounter
--- OUTSIDE RECORDS SUMMARY | ~2020-01-09 | XMS | Encounter Summary ---
Demographics + + + | Address | [address] | | | [place] [address] | + + + | Home Phone | | + + + | Preferred Language | Unknown | + + + | Marital Status | | + + + | Hindu Affiliation | 1013 | + + + | Race | Unknown | + + + | Ethnic Group | Unknown | + + + Author + + + | Author | [facility] | | | and [place] | + + + | Organization | [facility] | | | [...] Team Providers + +------+ + | Care Salesperson Surgical Appliances Name | Role | Phone | + +------+ + | Thi Hutton MD | PCP | | + +------+ + Reason for Referral Evaluate & Treat +--------+--------+ + + + + | Status | Reason | Specialty | Diagnoses / | Referred By | Referred To | | | | | Procedures | Contact | Contact | +--------+--------+ + + + + | Closed | | Neurosurgery | Diagnoses | Mamta Vogel Se | | | | | Lumbar | TAMIE Wilson | Neurosurgery | | | | | radiculopath | [address] | [address] | | | | | y Spinal | [address] | [address] | | | | | stenosis of | [address] | [employer], | | | | | lumbar | [place], | [place] [address] | | | | | region, | [place] [address] | Phone: | | | | | unspecified | Phone: | [phone] | | | | | whether | [phone] | Fax: | | | | | neurogenic | Fax: | [phone] | | | | | claudication | [phone] | | | | | | present | | | +--------+--------+ + + + + Diagnostic/Screening (Routine) +--------+--------+ + + + + | Status | Reason | Specialty | Diagnoses / | Referred By | Referred To | | | | | Procedures | Contact | Contact | +--------+--------+ + + + + | Closed | | Radiology | Diagnoses | Jaspreet, | [facility] | | | | | Lumbar | TAMIE Wilson | [address] | | | | | radiculopath | [address] | [employer] [employer], | | | | | y Spinal | [address] | [place] | | | | | stenosis of | [address] | [address] | | | | | lumbar | [place], | Phone: | | | | | region, | [place] [address] | [phone] | | | | | unspecified | Phone: | Fax: | | | | | whether | [phone] | [phone] | | | | | neurogenic | Fax: | | | | | | claudication | [phone] | | | | | | present | | | | | | | Procedures | | | | | | | MRI Lumbar | | | | | | | Spine wo | | | | | | | Contrast | | | +--------+--------+ + + + + Encounter Details +--------+ + + + + | Date | Type | Department | Care Team | Description | +--------+ + + + + | 06/04/ | Orders Only | [facility] [place] | Steve Vogel, | Lumbar radiculopathy | | 2019 | | PHYSIATRY [address] | PA-C [address] | (Primary Dx); | | | | [address] | [address] [place] | Spinal stenosis of | | | | [place], [place] | [place] [address] | lumbar region, | | | | [address] | [phone] | unspecified whether | | | | [phone] | | neurogenic | | | | | | claudication present | +--------+ + + + + Social [...] 2020 | Visit | | [address] [facility] | | | | | | [address] [facility] | | | | | | [address] | | | | | | | | +--------+---------+ + + + + + +--------+ + + | Name | Type | Priori | Associated Diagnoses | Order Schedule | | | | ty | | | + + +--------+ + + | NEUROSURGERY | Outpatient | Routin | Lumbar | Ordered: 06/04/2019 | | REFERRAL INTERNAL | Referral | e | radiculopathy | | | | | | Spinal stenosis of | | | | | | lumbar region, | | | | | | unspecified whether | | | | | | neurogenic | | | | | | claudication present | | + + +--------+ + + documented as of this encounter Results MRI Lumbar Spine wo Contrast (06/16/2019 11:21 AM PDT) + + | Specimen | + + | | + + + + + | Impressions | Performed At | + + + | Overall, similar to minimally worsened appearance of the lumbar | [facility] | | spine compared with 03/18/2018 MRI. At L3-L4, posterior disc bulge | | | and severe facet spondylosis causes [id number]-[id number] central spinal | | | stenosis and mild bilateral neuroforaminal narrowing. Likely some | | | level of mass effect on bilateral exiting nerve roots. Severe | | | degenerative disc disease at L4-L5 causes moderate to severe bilateral | | | neural foraminal narrowing with likely some level of mass effect on | | | the bilateral exiting L4 nerve roots. Dictated and Signed by: | | | Kev Ayala MD Electronically signed: 06/16/2019 1:11 PM | | + + + + + + | Narrative | Performed At | + + + | MRI LUMBAR SPINE WO CONTRAST 06/16/2019 10:52 AM HISTORY: | [facility] | | L/S-spine canal stenosis Back pain or radiculopathy, > 6 wks. | | | COMPARISON: Multiple priors most recently dated 03/18/2018. | | | PROTOCOL: Sagittal T2, sagittal T1, axial T2, axial T1, sagittal STIR, | | | coronal T2. FINDINGS: Vertebral body heights are preserved. | | | Diffuse disc desiccation. Severe disc height loss at L4-L5. Mild disc | | | height loss at multiple other levels. Multilevel posterior disc | | | bulges are seen. Imaged spinal cord and cauda equina demonstrate | | | normal signal with no evidence for myelomalacia or mass lesions. The | | | conus medullaris terminates at level L1, which is normal. T12-L1: | | | No central canal or neural foramina canal stenosis. L1-2: Mild | | | diffuse annular disc bulge and facet spondylosis causing mild | | | bilateral inferior neural foraminal narrowing. No evidence of central | | | spinal stenosis. L2-3: Broad-based posterior disc bulge and facet | | | spondylosis causing mild bilateral inferior neural foraminal | | | narrowing. No evidence of central spinal stenosis. L3-4: Severe | | | facet spondylosis and broad-based posterior disc bulge causes mild | | | bilateral neuroforaminal narrowing and mild to moderate central spinal | | | stenosis with the thecal sac measuring 8 mm in midline AP dimension. | | | Grade 1 anterolisthesis of L3 over L4. L4-5: Circumferential | | | disc bulge and moderate facet spondylosis causes moderate to severe | | | bilateral neural foraminal narrowing with likely some level of mass | | | effect on bilateral exiting L4 nerve roots. L5-S1: No central | | | canal or neural foramina canal stenosis. Imaged abdomen and pelvis | | | demonstrate no acute findings. Findings colonic diverticula are | | | identified. Numerous simple appearing cystic lesions are seen | | | scattered throughout both kidneys. Many of these are not well | | | characterized. | | + + + + + | Procedure Note | + + | Manav, Rad Results In - 06/16/2019 1:14 PM PDT MRI LUMBAR SPINE WO CONTRAST 06/16/2019 | | 10:52 AM HISTORY: L/S-spine canal stenosisBack pain or radiculopathy, > 6 | | wks.COMPARISON: Multiple priors most recently dated 03/18/2018.PROTOCOL: Sagittal T2, | | sagittal T1, axial T2, axial T1, sagittal STIR, coronalT2.FINDINGS:Vertebral body | | heights are preserved. Diffuse disc desiccation. Severe discheight loss at L4-L5. Mild | | disc height loss at multiple other levels. Multilevelposterior disc bulges are | | seen.Imaged spinal cord and cauda equina demonstrate normal signal with no evidencefor | | myelomalacia or mass lesions. The conus medullaris terminates at level L1,which is | | normal.T12-L1: No central canal or neural foramina canal stenosis.L1-2: Mild diffuse | | annular disc bulge and facet spondylosis causing mildbilateral inferior neural foraminal | | narrowing. No evidence of central spinalstenosis.L2-3: Broad-based posterior disc bulge | | and facet spondylosis causing mildbilateral inferior neural foraminal narrowing. No | | evidence of central spinalstenosis.L3-4: Severe facet spondylosis and broad-based | | posterior disc bulge causes mildbilateral neuroforaminal narrowing and mild to moderate | | central spinal stenosiswith the thecal sac measuring 8 mm in midline AP dimension. Grade | | 1anterolisthesis of L3 over L4.L4-5: Circumferential disc bulge and moderate facet | | spondylosis causes moderateto severe bilateral neural foraminal narrowing with likely | | some level of masseffect on bilateral exiting L4 nerve roots. L5-S1: No central canal or | | neural foramina canal stenosis.Imaged abdomen and pelvis demonstrate no acute | | findings.Findings colonic diverticula are identified. Numerous simple appearing | | cysticlesions are seen scattered throughout both kidneys. Many of these are not | | wellcharacterized.IMPRESSION: Overall, similar to minimally worsened appearance of the | | lumbar spine comparedwith 03/18/2018 MRI.At L3-L4, posterior disc bulge and severe facet | | spondylosis aeaewyihus-nq-jojwshms central spinal stenosis and mild bilateral | | neuroforaminalnarrowing. Likely some level of mass effect on bilateral exiting nerve | | roots.Severe degenerative disc disease at L4-L5 causes moderate to severe | | bilateralneural foraminal narrowing with likely some level of mass effect on | | thebilateral exiting L4 nerve roots.Dictated and Signed by: Kev Ayala MD | | Electronically signed: 06/16/2019 1:11 PM | |L3-4: Severe facet spondylosis and broad-based posterior disc bulge causes mild | |bilateral neuroforaminal narrowing and mild to moderate central spinal stenosis | |with the thecal sac measuring 8 mm in midline AP dimension. Grade 1 | |anterolisthesis of L3 over L4. | | | |L4-5: Circumferential disc bulge and moderate facet spondylosis causes moderate | |to severe bilateral neural foraminal narrowing with likely some level of mass | |effect on bilateral exiting L4 nerve roots. | | | |L5-S1: No central canal or neural foramina canal stenosis. | | | |Imaged abdomen and pelvis demonstrate no acute findings. | |Findings colonic diverticula are identified. Numerous simple appearing cystic | |lesions are seen scattered throughout both kidneys. Many of these are not well | |characterized. | | | |IMPRESSION: | |Overall, similar to minimally worsened appearance of the lumbar spine compared | |with 03/18/2018 MRI. | | | |At L3-L4, posterior disc bulge and severe facet spondylosis causes | |lckb-aj-lrfvxald central spinal stenosis and mild bilateral neuroforaminal | |narrowing. Likely some level of mass effect on bilateral exiting nerve roots. | | | |Severe degenerative disc disease at L4-L5 causes moderate to severe bilateral | |neural foraminal narrowing with likely some level of mass effect on the | |bilateral exiting L4 nerve roots. | | | |Dictated and Signed by: Kev Ayala MD | | Electronically signed: 06/16/2019 1:11 PM | + + + +---------+ + [...] | | unspecified | + + | Spinal stenosis of lumbar region, unspecified whether neurogenic claudication present | + + documented in this encounter"
--- OUTSIDE RECORDS SUMMARY | ~2020-01-09 | XMS | Encounter Summary ---
Demographics + + + | Address | [address] | | | [place] [address] | + + + | Home Phone | | + + + | Preferred Language | Unknown | + + + | Marital Status | | + + + | Restorationism Affiliation | 1013 | + + + | Race | Unknown | + + + | Ethnic Group | Unknown | + + + Author + + + | Author | [facility] | | | and [place] | + + + | Organization | [facility] | | [...] Team Providers + +------+ + | Care Wreath Maker Name | Role | Phone | + +------+ + | Thi Hutton MD | PCP | | + +------+ + Encounter Details +--------+ + + + + | Date | Type | Department | Care Team | Description | +--------+ + + + + | 04/25/ | Abstract | [facility] [place] | Stefania Gibson | | | 2018 | | JESUS [address] | TAMIE Steinberg [address] | | | | | [address] | [facility] | | | | | [place], [place] | [address] [place] [address] | | | | | [address] | [address] | | | | | [phone] | | | +--------+ + + + [...] 2019 | Visit | | [address] [facility] | | | | | | [address] [place] | | | | | | [address] | | | | | | | | +--------+---------+ + + + documented as of this encounter Visit Diagnoses Not on filedocumented in this encounter"
--- OUTSIDE RECORDS SUMMARY | ~2020-01-09 | XMS | Encounter Summary ---
Demographics + + + | Address | [address] | | | [place] [address] | + + + | Home Phone | | + + + | Preferred Language | Unknown | + + + | Marital Status | | + + + | Denominational Affiliation | 1013 | + + + | Race | Unknown | + + + | Ethnic Group | Unknown | + + + Author + + + | Author | [facility] | | | and [place] | + + + | Organization | [facility] | | | [...] Team Providers + +------+ + | Care Validation Scientist Name | Role | Phone | + [...] | Lumbar | Belle, | [address] | | | | | radiculopath | Brice T, MD | [place], | | | | | y | [address] | [place] | | | | | Procedures | [place] | [address] | | | | | [place] INJECT | [place], [place] | Phone: | | | | | ANES/STEROID | [address] | [phone] | | | | | FORAMEN | Phone: | Fax: | | | | | LUMBAR/SACRA | [phone] | [phone] | | | | | [address] IMG | Fax: | | | | | | GUIDE ,1 | [phone] | | | | | | [place] | | | | | | | TRIAMCINOLON | | | | | | | E ACET INJ | | | | | | | NOS, 10 MG | | | | | | | Left L4-L5 | | | | | | | TFESI-Direct | | | | | | | referral | | | | | | | from Maryan | | | | | | | Arthur | | | +--------+--------+ + + + + Encounter Details +--------+ + + + + | Date | Type | Department | Care Team | Description | +--------+ + + + + | 06/05/ | Hospital | [facility] | Brice Odonnell | Lumbar radiculopathy | | 2018 | Encounter | MED CTR XRAY [address] | T, MD [address] | | | | | [place] | [place], [place] | | | | | [place] [address] | [address] | | | | | [phone] | | | | | | | Bank Clerk, [facility] | | | | | | [...] +---------+ + + | Blood Pressure | 189/99 | 06/05/2018 2:57 PM | | | | | PDT | | + +---------+ + + | Pulse | - | - | | + [...] +---------+ + + | lisinopril | Take 1 tablet by | | 12 | 04/18/20 | | | (PRINIVIL, ZESTRIL) | mouth Daily. | | | 18 | 9 | | 20 mg tablet | | | | | | + + + +---------+ + + | thyroid (ARMOUR) | Take 180 mg by mouth | | 0 | | | | 180 MG tablet | every morning | | | | 9 | | | (before breakfast). | | | | | + + + +---------+ + + documented as of this encounter Plan of Treatment +--------+---------+ + + + | Date | Type | Specialty | Care Team | Description | +--------+---------+ + + + | 06/27/ | Office | Nephrology | Pillo Condon MD | | | 2020 | Visit | | [address] [facility] | | | | | | [address] [place] | | | | | | [address] | | | | | | | | +--------+---------+ + + + documented as of this encounter Procedures + +--------+ + + + | Procedure Name | Priori | Date/Time | Associated Diagnosis | Comments | | | ty | | | | + +--------+ + + + | FL EPIDURAL STEROID | Routin | 06/05/2018 | Lumbar | Results for this | | INJECTION LUMBAR | e | 2:54 PM | radiculopathy | procedure are in the | | TRANSFORAMINAL | | PDT | | results section. | + +--------+ + + + documented in this encounter Results FL JANKI Lumbar Transforaminal [...] in this encounter Administered Medications + +--------+ +------+------+------+ | Medication Order | MAR | Action | Dose | Rate | Site | | | Action | Date | | | | + +--------+ +------+------+------+ | betamethasone (CELESTONE | Given | 06/05/20 | 9 mg | | | | SOLUSPAN) injection 9 mg 9 mg, | | 18 2:59 | | | | | Intra-articular, ONCE, Bibiana | | PM PDT | | | | | 06/05/18 at 1445, For 1 dose, | | | | | | | Shake well. Not for IV use., | | | | | | + +--------+ +------+------+------+ +---+---+ | | | +---+---+ + +-------+ +-------+---+---+ | iohexol (OMNIPAQUE 300) 300 | Given | 10/18/20 | 4 mLs | | | | mg/mL injection 4 mL 4 mL, | | 18 2:56 | | | | | Other, ONCE, Bibiana 06/05/18 at | | PM PDT | | | | | 1445, For 1 dose | | | | | | + +-------+ +-------+---+---+ +---+---+ | | | +---+---+ + +-------+ +-------+---+---+ | lidocaine (PF) 1% injection 2 | Given | 10/18/20 | 2 mLs | | | | mL 2 mL, Other, ONCE, Bibiana | | 18 3:00 | | | | | 18 at 1445, For 1 dose | | PM PDT | | | | + +-------+ +-------+---+---+ +---+---+ | | | +---+---+ + +-------+ +-------+---+ + | lidocaine buffered 1.3% | Given | 06/05/20 | 3 mLs | | Other | | injection 3 mL 3 mL, | | 18 2:54 | | | (Comment | | Intradermal, ONCE, [facility] 06/05/18 | | PM PDT | | | ) | | at 1445, For 1 dose | | | | | | + +-------+ +-------+---+ + +---+---+ | | | +---+---+ documented in this encounter"
--- OUTSIDE RECORDS SUMMARY | ~2020-01-09 | XMS | Encounter Summary ---
Demographics + + + | Address | [address] | | | [place] [address] | + + + | Home Phone | | + + + | Preferred Language | Unknown | + + + | Marital Status | | + + + | Worship Affiliation | 1013 | + + + | Race | Unknown | + + + | Ethnic Group | Unknown | + + + Author + + + | Author | [facility] | | | and [place] | + + + | Organization | [facility] | | | [...] Team Providers + +------+ + | Care Lieutenant Governor Name | Role | Phone | + +------+ + | Thi Hutton MD | PCP | | + +------+ + Encounter Details +--------+ + + + + | Date | Type | Department | Care Team | Description | +--------+ + + + + | 06/04/ | Abstract | [facility] | [place], | | | 2018 | | PH[facility]SIAT[facility] [address] | [address] | | | | | [address] | [address] | | | | | [place] [facility], [place] | [place] [id number] | | | | | [address] | [phone] | | | | | [phone] | | | +--------+ + + + [...] 2019 | Visit | | [address] [facility] | | | | | | [address] [place] | | | | | | [address] | | | | | | | | +--------+---------+ + + + documented as of this encounter Visit Diagnoses Not on filedocumented in this encounter"
--- OUTSIDE RECORDS SUMMARY | ~2020-01-09 | XMS | Encounter Summary ---
Demographics + + + | Address | [address] | | | [place] [address] | + + + | Home Phone | | + + + | Preferred Language | Unknown | + + + | Marital Status | | + + + | Jew Affiliation | 1013 | + + + | Race | Unknown | + + + | Ethnic Group | Unknown | + + + Author + + + | Author | [facility] | | | and [place] | + + + | Organization | [facility] | | [...] Team Providers + +------+ + | Care Land Acquisition Analyst Name | Role | Phone | + +------+ + PCP | Unavailable | + +------+ + Encounter Details +--------+ + + + + | Date | Type | Department | Care Team | Description | +--------+ + + + + | 04/28/ | [facility] | [facility] | Conversion | Dyspnea | | 2015 | Encounter | PULMONARY FUNCTION | Transaction, | | | | | LAB [address] | Provider Unknown | | | | | [place] | [phone] | | | | | [address] | | | | | | [phone] | | | +--------+ + + + + Social History + +-------+ +--------+------+ | Tobacco Use | Types | Packs/Day | Years | Date | | | | | Used | | + +-------+ +--------+------+ | Never Assessed | | | | | + +-------+ +--------+------+ + + + | Sex Assigned at [...] 2020 | Visit | | [address] [facility] | | | | | | [address] [place], [place] | | | | | | [address] | | | | | | | | +--------+---------+ + + + documented as of this encounter Visit Diagnoses + + | Diagnosis | + + | Dyspnea Other dyspnea and respiratory abnormality | + + documented in this encounter"
--- OUTSIDE RECORDS SUMMARY | ~2020-01-09 | XMS | Encounter Summary ---
Demographics + + + | Address | [address] | | | [place] [address] | + + + | Home Phone | | + + + | Preferred Language | Unknown | + + + | Marital Status | | + + + | Jehovah'S Witness Affiliation | 1013 | + + + | Race | Unknown | + + + | Ethnic Group | Unknown | + + + Author + + + | Author | [facility] | | | and [place] | + + + | Organization | [facility] | | | and [...] Team Providers + +------+ + | Care Gun Perforator Loader Name | Role | Phone | + +------+ + PCP | Unavailable | + +------+ + Encounter Details +--------+ + + + + | Date | Type | Department | Care Team | Description | +--------+ + + + + | 11/03/ | Hospital | [facility] | [place], | | | 2011 - | Encounter | [facility] | [address] | | | | [place] [address] | [facility] | | | 11/04/ | | [facility] | [place] [address] | | | 2011 | | OSIEL Tse | [phone] | | | | | [address] | | | | | | [phone] | | | +--------+ + + + [...] 2020 | Visit | | [address] | | | | | | [address] [place], [place] | | | | | | [address] | | | | | | | | +--------+---------+ + + + documented as of this encounter Procedures + +--------+ + + + | Procedure Name | Priori | Date/Time | Associated Diagnosis | Comments | | | ty | | | | + +--------+ + + + | HISTORICAL IMAGING | | 11/05/2011 | | Results for this | | RESULT | | 12:04 AM | | procedure are in the | | | | PDT | | results section. | + +--------+ + + + | HISTORICAL IMAGING | | 11/04/2011 | | Results for this | | RESULT | | 11:21 PM | | procedure are in the | | | | PDT | | results section. | + +--------+ + + + | (CONNORURINALYSIS | Routin | 11/04/2011 | | Results for this | | | e | 10:15 PM | | procedure are in the | | | | PDT | | results section. | + +--------+ + + + | SANTIAGO (ZZZ) WITH | Routin | 11/04/2011 | | Results for this | | MICROSCOPIC | e | 10:15 PM | | procedure are in the | | | | PDT | | results section. | + +--------+ + + + | CBC NO DIFFERENTIAL | Routin | 11/04/2011 | | Results for this | | | e | 9:35 PM | | procedure are in the | | | | PDT | | results section. | + +--------+ + + + | LIPASE | Routin | 11/04/2011 | | Results for this | | | e | 9:35 PM | | procedure are in the | | | | PDT | | results section. | + +--------+ + + + | COMPREHENSIVE | Routin | 11/04/2011 | | Results for this | | METABOLIC PANEL | e | 9:35 PM | | procedure are in the | | | | PDT | | results section. | + +--------+ + + + documented in this encounter Results Historical Imaging Result (11/05/2011 12:04 AM PDT) + + | Specimen | + + | | + + + + + | Narrative | Performed At | + + + | Exam Performed Location: [facility] | MISCELANIOUS | | CT ABDOMEN AND PELVIS WITH CONTRAST CLINICAL INFORMATION: Right | LAB | | lower quadrant pain. COMPARISON: Ultrasound abdomen from the same | | | date. PROCEDURE: Axial images through the abdomen and pelvis | | | after the administration of 100 ml Isovue 370 intravenous contrast. | | | Multiplanar reconstructions. FINDINGS: LUNG BASES: No significant | | | pulmonary abnormality. No pleural effusion or pneumothorax. | | | ABDOMEN Liver and Biliary: Multiple low-attenuation lesions noted in | | | the liver largest measuring 1.8 cm. No ductal dilatation. No | | | gallstones. Pancreas, Spleen and Adrenals: No pancreatitis or | | | pancreatic mass. No splenomegaly, splenic mass or splenic hemorrhage. | | | No significant adrenal abnormality. Kidneys: Multiple cystic | | | lesions noted in both kidneys ranging from a few millimeters to 3.2 | | | cm. Cortical scarring noted in mid pole of the left kidney with a | | | focus of calcification. No hydronephrosis. ABDOMEN AND PELVIS | | | Bowel: No small bowel or colonic dilation, inflammation or mass. No | | | appendiceal dilation or inflammation. Sigmoid diverticulosis noted. | | | Vessels: No significant abnormality in the aorta, its proximal | | | branches or the iliac arteries. No significant abnormality in the | | | portal veins, mesenteric veins or systemic veins. Lymph Nodes: No | | | adenopathy. Peritoneum and Retroperitoneum: No intraperitoneal free | | | air, ascites or peritoneal mass. No significant retroperitoneal | | | abnormality. PELVIS Genitourinary: The uterus is surgically | | | absent. Urinary bladder is unremarkable. BODY WALL Soft | | | Tissues: No hernia, mass or hemorrhage. Bones: No acute fracture or | | | vertebral end plate destruction. No lytic or blastic lesion. | | | IMPRESSION: 1. Normal appendix. 2. Multiple cystic lesions | | | noted in the liver and kidneys. The renal cysts appears slightly | | | complex however no prior comparisons. No hydronephrosis. 3. No | | | bowel obstruction. Sigmoid diverticulosis with no CT evidence of | | | diverticulitis. | | + + + + + | Procedure Note | + + | Manav, Rad Conversion - 06/11/2013 11:07 AM PDT Exam [facility]formed [facility] WITH CONTRASTCLINICAL INFORMATION:Right | | lower quadrant pain.COMPARISON:Ultrasound abdomen from the same date.PROCEDURE:Axial | | images through the abdomen and pelvis after theadministration of 100 ml Isovue 370 | | intravenous contrast.Multiplanar reconstructions.FINDINGS:LUNG BASES: No significant | | pulmonary abnormality. No pleuraleffusion or pneumothorax.ABDOMENLiver and Biliary: | | Multiple low-attenuation lesions noted in theliver largest measuring 1.8 cm. No ductal | | dilatation. Nogallstones.Pancreas, Spleen and Adrenals: No pancreatitis or pancreatic | | mass.No splenomegaly, splenic mass or splenic hemorrhage. No significantadrenal | | abnormality.Kidneys: Multiple cystic lesions noted in both kidneys ranging froma few | | millimeters to 3.2 cm. Cortical scarring noted in mid poleof the left kidney with a | | focus of calcification. Nohydronephrosis.ABDOMEN AND PELVISBowel: No small bowel or | | colonic dilation, inflammation or mass. Noappendiceal dilation or inflammation. Sigmoid | | diverticulosis noted.Vessels: No significant abnormality in the aorta, its | | proximalbranches or the iliac arteries. No significant abnormality in theportal veins, | | mesenteric veins or systemic veins.Lymph Nodes: No adenopathy.Peritoneum and | | Retroperitoneum: No intraperitoneal free air,ascites or peritoneal mass. No significant | | retroperitonealabnormality.PELVISGenitourinary: The uterus is surgically absent. | | Urinary bladder isunremarkable.BODY WALLSoft Tissues: No hernia, mass or | | hemorrhage.Bones: No acute fracture or vertebral end plate destruction. Nolytic or | | blastic lesion.IMPRESSION:1. Normal appendix.2. Multiple cystic lesions noted in the | | liver and kidneys. Therenal cysts appears slightly complex however no prior | | comparisons.No hydronephrosis.3. No bowel obstruction. Sigmoid diverticulosis with no | | CTevidence of diverticulitis. | |No splenomegaly, splenic mass or splenic hemorrhage. No significant | |adrenal abnormality. | |Kidneys: Multiple cystic lesions noted in both kidneys ranging from | |a few millimeters to 3.2 cm. Cortical scarring noted in mid pole | |of the left kidney with a focus of calcification. No | |hydronephrosis. | | | |ABDOMEN AND PELVIS | |Bowel: No small bowel or colonic dilation, inflammation or mass. No | |appendiceal dilation or inflammation. Sigmoid diverticulosis noted. | |Vessels: No significant abnormality in the aorta, its proximal | |branches or the iliac arteries. No significant abnormality in the | |portal veins, mesenteric veins or systemic veins. | |Lymph Nodes: No adenopathy. | |Peritoneum and Retroperitoneum: No intraperitoneal free air, | |ascites or peritoneal mass. No significant retroperitoneal | |abnormality. | | | |PELVIS | |Genitourinary: The uterus is surgically absent. Urinary bladder is | |unremarkable. | | | |BODY WALL | |Soft Tissues: No hernia, mass or hemorrhage. | |Bones: No acute fracture or vertebral end plate destruction. No | |lytic or blastic lesion. | | | |IMPRESSION: | | | |1. Normal appendix. | |2. Multiple cystic lesions noted in the liver and kidneys. The | |renal cysts appears slightly complex however no prior comparisons. | |No hydronephrosis. | |3. No bowel obstruction. Sigmoid diverticulosis with no CT | |evidence of diverticulitis. | + + + +---------+ + + | Performing | Address | City/State/Zipcode | Phone Number | | Organization | | | | + +---------+ + + | [facility] | | | [phone] | + +---------+ + + | [facility] | | | [phone] | + +---------+ + + Historical Imaging Result (11/04/2011 11:21 PM PDT) + + | Specimen | + + | | + + + + + | Narrative | Performed At | + + + | Exam Performed Location: [facility] | MISCELANIOUS | | ULTRASOUND ABDOMEN, LIMITED CLINICAL INFORMATION: Abdominal pain. | LAB | | COMPARISON: None. PROCEDURE: Evaluation of the gallbladder, | | | if present, common bile duct, liver, and right kidney. FINDINGS: | | | Exam is limited by patient's body habitus and overlying bowel gas. | | | The liver is not enlarged. Several hepatic cysts are | | | demonstrated. There is no intrahepatic biliary ductal dilatation. | | | No gallbladder calculi seen. The gallbladder shows normal wall | | | thickness. No pericholecystic fluid. Sonographic Cerrato's sign is | | | negative. The CBD measures 6.4 mm. The pancreas is not | | | visualized. The right kidney it is difficult to visualize. | | | Craniocaudal dimension is 11.9 cm. The kidney appears isoechoic | | | to the hepatic parenchyma. No hydronephrosis is seen. There is a | | | simple renal cyst measuring 1.7 x 1.4 cm. No free fluid seen. | | | IMPRESSION: 1. Limited examination due to the patient's body | | | habitus and overlying bowel gas. 2. Poor visualization of the | | | right kidney. The kidney demonstrates mildly increased echogenicity | | | which could be due to medical renal disease. Simple right renal | | | cyst. No hydronephrosis. 3. No gallbladder pathology is | | | detected. 4. Multiple hepatic cysts. 5. Pancreas not visualized. | | | | | + + + + + | Procedure Note | + + | Manav, Rad Conversion - 06/11/2013 11:47 AM PDT Exam Performed [facility] LIMITEDCLINICAL INFORMATION:Abdominal | | pain.COMPARISON:None.PROCEDURE:Evaluation of the gallbladder, if present, common bile | | duct, liver,and right kidney.FINDINGS:Exam is limited by patient's body habitus and | | overlying bowel gas.The liver is not enlarged. Several hepatic cysts are | | demonstrated.There is no intrahepatic biliary ductal dilatation.No gallbladder calculi | | seen. The gallbladder shows normal wallthickness. No pericholecystic fluid. | | Sonographic Cerrato's sign isnegative. The CBD measures 6.4 mm. The pancreas is | | notvisualized.The right kidney it is difficult to visualize. Craniocaudaldimension is | | 11.9 cm. The kidney appears isoechoic to the hepaticparenchyma. No hydronephrosis is | | seen. There is a simple renalcyst measuring 1.7 x 1.4 cm.No free fluid | | seen.IMPRESSION:1. Limited examination due to the patient's body habitus andoverlying | | bowel gas.2. Poor visualization of the right kidney. The kidneydemonstrates mildly | | increased echogenicity which could be due tomedical renal disease. Simple right renal | | cyst. Nohydronephrosis.3. No gallbladder pathology is detected.4. Multiple hepatic | | cysts.5. Pancreas not visualized. | | | |The liver is not enlarged. Several hepatic cysts are demonstrated. | |There is no intrahepatic biliary ductal dilatation. | | | |No gallbladder calculi seen. The gallbladder shows normal wall | |thickness. No pericholecystic fluid. Sonographic Cerrato's sign is | |negative. The CBD measures 6.4 mm. The pancreas is not | |visualized. | | | |The right kidney it is difficult to visualize. Craniocaudal | |dimension is 11.9 cm. The kidney appears isoechoic to the hepatic | |parenchyma. No hydronephrosis is seen. There is a simple renal | |cyst measuring 1.7 x 1.4 cm. | | | |No free fluid seen. | | | |IMPRESSION: | |1. Limited examination due to the patient's body habitus and | |overlying bowel gas. | |2. Poor visualization of the right kidney. The kidney | |demonstrates mildly increased echogenicity which could be due to | |medical renal disease. Simple right renal cyst. No | |hydronephrosis. | |3. No gallbladder pathology is detected. | |4. Multiple hepatic cysts. | |5. Pancreas not visualized. | + + + +---------+ + + | Performing | Address | City/State/Zipcode | Phone Number | | Organization | | | | + +---------+ + + | [facility] | | | [phone] | + +---------+ + + | [facility] | | | [phone] | + +---------+ + + Urinalysis, with Microscopic (11/04/2011 10:15 PM PDT) + + + + + + | Component | Value | Ref Range | Performed | Pathologist | | | | | At | Signature | + + + + + + | White Blood | 0 to 5 | 0 - 5 /hpf | [facility] | | | Cells, | | | [facility] | | | Urine | | | [facility] | | | | | | LAB[facility]AT[facility] | | + + + + + + | Red Blood | 0 to 5 | 0 - 5 /hpf | [facility] | | | Cells, | | | [facility] | | | Urine | | | [facility] | | | | | | LABORATORY | | + + + + + + | Epithelial | FewComment: Squamous | /hpf | [facility] | | | Cells/LPF | | | [facility] | | | | | | [facility] | | | | | | LAB[facility]ATORY | | + + + + + + | Bacteria, | None seen | /hpf | [facility] | | | Urine | | | [facility] | | | | [facility] | | | | | | LAB[facility]ATORY | | + + + + + + | CASTS | None seen | /lpf | [facility] | | | | | | [facility] | | | | [facility] | | | | | | LABORATORY | | + + + + + + | CRYSTAL UA | None seen | /hpf | [facility] | | | | | | [facility] | | | | | | [facility] | | + + + + + + + + | Specimen | + + | | + + + + + + + | Performing | Address | City/State/Zipcode | Phone Number | | Organization | | | | + + + + + | [facility] | [address] | [place] [address] | | | [facility] | | | | | [facility] | | | | + + + + + | [facility] | | | | [facility] | | | | | [facility] | | | | + + + + + Urinalysis (11/04/2011 10:15 PM PDT) + + + + + + | Component | Value | Ref Range | Performed | Pathologist | | | | | At | Signature | + + + + + + | COLLECTION | Urine, Clean Catch | | [facility] | | | [facility] | | | [facility] | | | | [facility] | | | | | | [facility] | | + + + + + + | Color, | Yellow | Yellow | [facility] | | | Urine | | | [facility] | | | | [facility] | | | | | | [facility] | | + + + + + + | Clarity | Clear | Clear | [facility] | | | | | | [facility] | | | | | | [facility] | | + + + + + + | Glucose, | Negative | <100 mg/dL | [facility] | | | Urine | | | [facility] | | [facility] | | | | | | [facility] | | + + + + + + | Bilirubin, | Negative | Negative | [facility] | | | Urine | | | [facility] | [facility] | | | | | | [facility] | | + + + + + + | Ketones, | Trace (A) | Negative mg/dL | [facility] | | | Urine | | | [facility] | | | | | | [facility] | | + + + + + + | Specific | 1.020 | 1.001 - 1.040 | [facility] | | | [place] | | | [facility] | | [facility] | | | | | | [facility] | | + + + + + + | pH, Urine | 6.0 | 5.0 - 7.0 | [facility] | | | | | | [facility] | | | | | | [facility] | | + + + + + + | Protein, | Negative | Negative mg/dL | [facility] | | | Urine | | | [facility] | | | | | | [facility] | | + + + + + + | Urobilinoge | 0.2 | 0.2 - 1.0 mg/dL | [facility] | | | n, Urine | | | [facility] | | | | [facility] | | | | | | [facility] | | + + + + + + | Nitrite, | Negative | Negative | [facility] | | | Urine | | | [facility] | | | | | | [facility] | | + + + + + + | Blood, | Trace (A) | Negative | [facility] | | | Urine | | | [facility] | [facility] | | | | | | [facility] | | + + + + + + | Leukocyte | Negative | Negative | [facility] | | | Esterase, | | | [facility] | | | Urine | | | [facility] | | | | | | LABORATORY | | + + + + + + + + | Specimen | + + | | + + + + + + + | Performing | Address | City/State/Zipcode | Phone Number | | Organization | | | | + + + + + | [facility] | [address] | [place] [address] | | | [facility] | | | | | [facility]ORY | | | | + + + + + | [facility] | | | | | [facility] | | | | | [facility] | | | | + + + + + Lipase (11/04/2011 9:35 PM PDT) + + + + + + | Component | Value | Ref Range | Performed | Pathologist | | | | | At | Signature | + + + + + + | Lipase | 165Comment: NOTE NEW | 70 - 350 U/L | [facility] | | | | REFERENCE RANGE | | [facility] | [facility] | | | | | | [facility] | | + + + + + + + + | Specimen | + + | | + + + + + + + | Performing | Address | City/State/Zipcode | Phone Number | | Organization | | | | + + + + + | [facility] | [address] | [place] [address] | | | [facility] | | | | | [facility]ATORY | | | | + + + + + | [facility] | | | | | [facility] | | | | | [facility] | | | | + + + + + Comprehensive Metabolic Panel (11/04/2011 9:35 PM PDT) + + + + + + | Component | Value | Ref Range | Performed | Pathologist | | | | | At | Signature | + + + + + + | Na | 139 | 135 - 146 | [facility] | | | | | mmol/L | [facility] | | | | | | [facility] | | + + + + + + | K | 3.7 | 3.6 - 5.2 | [facility] | | | | | mmol/L | [facility] | | | | | | [facility] | | + + + + + + | Cl | 104 | 98 - 109 mmol/L | [facility] | | | | | | [facility] | | | | | | [facility] | | + + + + + + | CO2 | 23 | 21 - 32 mmol/L | [facility] | | | | | | [facility] | | | | | | [facility] | | + + + + + + | Glucose | 133 (H)Comment: Impaired | 65 - 99 mg/dL | [facility] | | | | fasting glucose: 100 to | | [facility] | | | | 125 mg/dL. | | [facility] | | | | | | [facility] | | + + + + + + | BUN | 22 | 7 - 23 mg/dL | [facility] | | | | | | [facility] | | | | | | [facility] | | + + + + + + | Creatinine | 0.54 | 0.40 - 1.00 | [facility] | | | | | mg/dL | [facility] | | | | | | [facility] | | + + + + + + | Calcium | 8.7 | 8.5 - 10.5 | [facility] | | | | | mg/dL | [facility] | | | | | | [facility] | | + + + + + + | Total | 8.0 | 6.5 - 8.2 g/dL | [facility] | | | Protein | | | [facility] | | | | | | [facility] | | + + + + + + | Albumin | 4.0 | 3.4 - 5.0 g/dL | [facility] | | | | | | [facility] | [facility] | | | | | | [facility] | | + + + + + + | Bilirubin | 0.5 | 0.1 - 1.5 mg/dL | [facility] | | | Total | | | [facility] | [facility] | [facility] | | | | | | [facility] | | + + + + + + | Alkaline | 72 | 40 - 135 U/L | [facility] | | | Phosphatase | | | [facility] | [facility] | [facility] | | | | | | [facility] | | + + + + + + | AST | 14 | 5 - 40 U/L | [facility] | | | | | | [facility] | | | | | | [facility] | | + + + + + + | ALT | 35 | 5 - 65 U/L | [facility] | | | | | | [facility] | | | | | | [facility] | | + + + + + + | Anion Gap | 12 | 5 - 16 mmol/L | [facility] | | | | | | [facility] | | | | | | [facility] | | + + + + + + | Estimated | >60Comment: GFR <60: | >60 | [facility] | | | GFR | Chronic kidney disease, | ml/min/1.73m2 | [facility] | | | | if found over a 3 month | | HOSPITAL | | | | period.GFR <15: Kidney | | LABORATORY | | | | failure.For | | | | | | Americans, multiply the | | | | | | calculated GFR by 1.210 | | | | + + + + + + + + | Specimen | + + | | + + + + + + + | Performing | Address | City/State/Zipcode | Phone Number | | Organization | | | | + + + + + | [facility] | [address] | [place] [address] | | | [facility] | | | | | [facility] | | | | + + + + + | [facility] | | | [facility] | | | | | [facility] | | | | + + + + + CBC no Differential (11/04/2011 9:35 PM PDT) + + + + + + | Component | Value | Ref Range | Performed | Pathologist | | | | | At | Signature | + + + + + + | WBC | 12.6 (H) | 4.0 - 11.0 K/uL | [facility] | | | | | | [facility] | | | | | | [facility] | | + + + + + + | RBC | 4.19 | 3.80 - 5.20 | [facility] | | | | | M/uL | [facility] | | | | | | [facility] | | + + + + + + | Hemoglobin | 12.6 | 11.6 - 15.5 | [facility] | | | | | g/dL | [facility] | | | | | | [facility] | | + + + + + + | Hematocrit | 35.9 | 35.0 - 46.0 % | [facility] | | | | | | [facility] | | | | | | [facility] | | + + + + + + | MCV | 85.7 | 80.0 - 100.0 fL | [facility] | | | | | | [facility] | | | | | | [facility] | | + + + + + + | MCH | 30.2 | 27.0 - 34.0 pg | [facility] | | | | | | [facility] | | | | | | [facility] | | + + + + + + | MCHC | 35.2 | 32.0 - 35.5 | [facility] | | | | | g/dL | [facility] | | | | | | [facility] | | + + + + + + | RDW-CV | 14.4 | 11.0 - 15.0 % | [facility] | | | | | | [facility] | | | | | | [facility] | | + + + + + + | Platelet | 247 | 150 - 400 K/uL | [facility] | | | Count | | | [facility] | [facility] | | | | | | [facility] | | + + + + + + + + | Specimen | + + | | + + + + + + + | Performing | Address | City/State/Zipcode | Phone Number | | Organization | | | | + + + + + | [facility] | [address] | [place] [address] | | | [facility] | | | | | [facility]ORY | | | | + + + + + | [facility] | | | | | [facility] | | | | | [facility] | | | | + + + + + documented in this encounter Visit Diagnoses Not on filedocumented in this encounter"
--- OUTSIDE RECORDS SUMMARY | ~2020-01-09 | XMS | Encounter Summary ---
Demographics + + + | Address | [address] | | | [place] [address] | + + + | Home Phone | | + + + | Preferred Language | Unknown | + + + | Marital Status | | + + + | Temple Affiliation | 1013 | + + + | Race | Unknown | + + + | Ethnic Group | Unknown | + + + Author + + + | Author | [facility] | | | and [place] | + + + | Organization | [facility] | | | and [place] | + [...] Team Providers + +------+ + | Care Neurology Teacher Name | Role | Phone | + +------+ + | Thi Hutton MD | PCP | | + +------+ + Encounter Details +--------+ + + + + | Date | Type | Department | Care Team | Description | +--------+ + + + + | 12/20/ | Orders Only | [facility] | Pillo Condon MD | Essential (primary) | | 2020 | | NEPHROLOGY [place] | [address] [place] | hypertension | | | | [address] [place] | [address] [place], [place] | (Primary Dx); | | | | [address] [place], [place] | [address] | Polycystic kidney; | | | | [address] | | CKD (chronic kidney | | | | [phone] | | disease) stage 3, | | | | | | GFR 30-59 ml/min | | | | | | ([facility]); Persistent | | | | | | [...] 2020 | Visit | | [address] | | | | | | [address] [place], [place] | | | | | | [address] | | | | | | | [...]
--- OUTSIDE RECORDS SUMMARY | ~2020-01-09 | XMS | Encounter Summary ---
Demographics + + + | Address | [address] | | | [place] [address] | + + + | Home Phone | | + + + | Preferred Language | Unknown | + + + | Marital Status | | + + + | Judaism Affiliation | 1013 | + + + | Race | Unknown | + + + | Ethnic Group | Unknown | + + + Author + + + | Author | [facility] | | | and [place] | + + + | Organization | [facility] | | | [...] Team Providers + +------+ + | Care Rod Filler Name | Role | Phone | + [...] [address] | | | | [address] | [facility] | | | 11/04/ | | [facility] | [place] [address] | | | 2011 | | OSIEL Tse | [phone] | | | | | [address] | | | | | | [phone] | | | +--------+ + + + [...] 2020 | Visit | | [address] [facility] | | | | | | [address] [place], [place] | | | | | | [address] | | | | | | | [...] + + + | Exam Performed Location: [facility] | MISCELANIOUS | | CT ABDOMEN AND [...] 06/11/2013 11:07 AM PDT Exam Performed Location: [facility] P[facility]VIS WITH CONTRASTCLINICAL INFORMATION:Right | [...] + | MISCELLANEOUS LAB | | | [phone] | + +---------+ + + | MISCELANIOUS LAB | | | [phone] | + +---------+ + + Historical Imaging Result (11/04/2011 11:21 PM PDT) + + | Specimen | + + | | + + + + + | Narrative | Performed At | + + + | Exam Performed Location: [facility] | MISCELANIOUS | | ULTRASOUND ABDOMEN, LIMITED [...] 06/11/2013 11:47 AM PDT Exam Performed Location: [facility], LIMITEDCLINICAL INFORMATION:Abdominal | | pain.COMPARISON:None.PROCEDURE:Evaluation of [...] + | MISCELLANEOUS LAB | | | [phone] | + +---------+ + + | MISCELANIOUS LAB | | | [phone] | + +---------+ + + Urinalysis, with [...] + + + | [facility] | [address] | [place] [address] | | | [facility] | | [...] - 1.040 | [facility] | | | [place] | | | [facility] | | [...] + + + | [facility] | [address] | [place] [address] | | | [facility] | | [...] + | [facility] | [address] | [place] [address] | | | [facility] | | [...] + + + | [facility] | [address] | [place] [address] | | | [facility] | | [...] + + + | [facility] | [address] | [place] [address] | | | [facility] | | [...]
--- OUTSIDE RECORDS SUMMARY | ~2020-01-09 | XMS | Clinical Summary ---
Demographics + + + | Address | [address] | | | [place] [address] | + + + | Home Phone | | + + + | Preferred Language | Unknown | + + + | Marital Status | | + + + | Yazidism Affiliation | 1077 | + + + | Race | Unknown | + + + | Ethnic Group | Unknown | + + + Author + + + | Author | [facility] (Historical as of | | | 04-04-19) | + + + | Organization | [facility] (Historical as of | | | 04-04-19) | + + + | Address | Unknown | + + + | Phone | Unavailable | + + + Support + + +---------+ + | Name | Relationship | Address | Phone | + + +---------+ + | Jose Mitchell | ECON | Unknown | | + + +---------+ + | Lizet Paiz | ECON | Unknown | | + + +---------+ + | Ale Watson | ECON | Unknown | | + + +---------+ + Care Team Providers + +------+ + | Care Clinical Trial Coordinator Name | Role | Phone | + +------+ + | Roderick Ochoa MD | PP | | + +------+ + Allergies + + + + + + | Active Allergy | Reactions | Severity | Noted | Comments | | | | | Date | | + + + + + + | Codeine | Hallucinations | Medium | 04/28/20 | | | | | | 15 | | + + + + + + | Meperidine | Anaphylaxis | High | 01/21/20 | | | | | | 15 | | + + + + + + | Morphine | Anaphylaxis | High | 01/21/20 | | | | | | 15 | | + + + + + + | Morphine And Related | Nausea and Vomiting, | Medium | 07/21/20 | 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 | | | Comments) | | | | + + + + + + Current Medications + + +-------+---------+------+------+-------+ | Prescription | Sig. | Disp. | Refills | Star | End | Statu | | | | | | t | Date | s | | | | | | Date | | | + + +-------+---------+------+------+-------+ | | Take 15 mg by mouth | | | | | Activ | | X-Uvkgplqhiqyf-Gzure | daily. | | | | | e | | (L-METHYLFOLATE | | | | | | | | FORMULA 15 PO) | | | | | | | + + +-------+---------+------+------+-------+ | Methylcobalamin | Take by mouth | | | | | Activ | | (METHYL B-12 PO) | daily. | | | | | e | + + +-------+---------+------+------+-------+ | amLODIPine | Take 10 mg by mouth | | | | | Activ | | (NORVASC) 10 MG | daily. | | | | | e | | tablet | | | | | | | + + +-------+---------+------+------+-------+ | thyroid (ARMOUR | Take 180 mg by mouth | | | | | Activ | | THYROID) 180 MG | every morning | | | | | e | | tablet | before breakfast. | | | | | | + + +-------+---------+------+------+-------+ | ibuprofen (ADVIL) | Take 200 mg by mouth | | | | | Activ | | 200 MG tablet | every 6 (six) hours | | | | | e | | | as needed for Pain. | | | | | | + + +-------+---------+------+------+-------+ | Cholecalciferol | Take by mouth | | | | | Activ | | (VITAMIN D3) 2000 | daily. | | | | | e | | UNITS TABS | | | | | | | + + +-------+---------+------+------+-------+ | fluconazole | Take 200 mg by mouth | | | | | Activ | | (DIFLUCAN) 200 MG | daily. | | | | | e | | tablet | | | | | | | + + +-------+---------+------+------+-------+ | DHEA 25 MG CAPS | Take 1 tablet by | | | | | Activ | | | mouth daily. | | | | | e | + + +-------+---------+------+------+-------+ | Pregnenolone | Take 10 mg by mouth. | | | | | Activ | | Micronized POWD | | | | | | e | + + +-------+---------+------+------+-------+ | Calcium | Take by mouth. | | | | | Activ | | Carbonate-Vit D-Min | | | | | | e | | (CALCIUM 1200 PO) | | | | | | | + + +-------+---------+------+------+-------+ | Magnesium 100 MG | Take by mouth. | | | | | Activ | | TABS | | | | | | e | + + +-------+---------+------+------+-------+ Active Problems + + + | Problem | Noted Date | + + + | Dyspnea on effort | 01/20/2015 | + + + + + | Last Assessment & Plan: Dyspnea on exertion - remained about | | sameNo change in functional capacityPulmonary evaluation done- | | likely obesity related- deconditioning- she will benefit from | | PT-/rehab- she want to go to [address] and start exercise and | | swimming.ut 10-15 yrs back with severe LV systolic dysfunction | | and LV function improved with improvement of thyroid functions- | | symptoms could be the sequelae from prior CHFPossibly also form | | weight gainBut she has multiple risk factors for CAD- HTN, age, | | CVAStress MPI no yxywxomd4T echo normal LV function, no | | PHTNCarotid dopplers no significant carotid diseaseDiscussed | | diet, exercise, weight lossCont ASA 81mg dailyContinue | | amlodipineShe will possibly improve with exercise trainingAlso | | discussed with her the role of right and left heart cath to | | evaluate Pulmonary - right heart pressures and CAD status- she | | had cath about 10 yrs back which is normal and she do not have | | any chest pain, she opts for medical management-she want to | | continue medical managementContinue ASA, NorvascLDL 103 | + + Family History + + +------+ + | Medical History | Relation | Name | Comments | + + +------+ + | Diabetes type II | Mother | | | + + +------+ + | Heart disease | Mother | | | + + +------+ + | Kidney disease | Mother | | | + + +------+ + + +------+ + + | Relation | Name | Status | Comments | + +------+ + + | Father | | | ALS | | | | (Age | | | | | 81) | | + +------+ + + | Mother | | | heart disease, DMII,kidney disease | | | | (Age | | | | | 83) | | + +------+ + + Social History + +-------+ +--------+------+ | Tobacco Use | Types | Packs/Day | Years | Date | | | | | Used | | + +-------+ +--------+------+ | Passive Smoke | | | | | | Exposure - Never | | | | | | Smoker | | | | | + +-------+ +--------+------+ + +---+---+---+ | Smokeless Tobacco: | | | | | Never Used | | | | + +---+---+---+ + + +---------+ + | Alcohol Use | Drinks/We | oz/Week | Comments | | | ek | | | + + +---------+ + | No | 0 | 0.0 | | | | Standard | | | | | drinks or | | | | | | | | | | equivalen | | | | | t | | | + + +---------+ + + + + | Sex Assigned at | Date Recorded | | | | + + + | Not on file | | + + + Last Filed Vital Signs + + + + | Vital Sign | Reading | Time Taken | + + + + | Blood Pressure | 108/60 | 07/21/2015 10:26 AM PST | + + + + | Pulse | 64 | 07/21/2015 10:26 AM PST | + + + + | Temperature | 35.8 C (96.5 F) | 07/04/2015 11:52 AM PST | + + + + | Respiratory Rate | 18 | 07/21/2015 10:26 AM PST | + + + + | Oxygen Saturation | 98% | 07/21/2015 10:26 AM PST | + + + + | Inhaled Oxygen | - | - | | Concentration | | | + + + + | Weight | 88.9 kg (196 lb) | 07/21/2015 10:26 AM PST | + + + + | Height | 163.8 cm (5' 4.5") | 07/21/2015 10:26 AM PST | + + + + | Body Mass Index | 33.12 | 07/21/2015 10:26 AM PST | + + + + Plan of Treatment + + + + + | Health Maintenance | Due Date | Last Done | Comments | + + + + + | Vaccine: | | | | | Dtap/Tdap/Td (1 - | 4 | | | | Tdap) | | | | + + + + + | Vaccine: Zoster (1 | | | | | of 2) | 5 | | | + + + + + | DEXA SCAN SCREENING | | | | | | 0 | | | + + + + + | Vaccine: | | | | | Pneumococcal 65+ | 0 | | | | Low/Medium Risk (1 | | | | | of 2 - PCV13) | | | | + + + + + | Vaccine: Influenza | | | | | (Season Ended) | 0 | | | + + + + + Results Not on filefrom Last 3 Months Insurance + +--------+ +------+-------+ + | Payer | Benefi | Subscriber | Type | Phone | Address | | | t Plan | ID | | | | | | / | | | | | | | Group | | | | | + +--------+ +------+-------+ + | MEDICARE | MEDICA | [id number] | | | [address] | | | RE | | | | [place] [address] | | | IP-OP | | | | | + +--------+ +------+-------+ + | COMMERCIAL OTHER | TRANSA | [id number] | | | | | | MERICA | | | | | | | LIFE | | | | | + +--------+ +------+-------+ + + +--------+ +--------+ + + | Guarantor Name | Accoun | Relation to | Date | Phone | Billing Address | | | t Type | Patient | of | | | | | | | | | | + +--------+ +--------+ + + | KEYUR PAIZ | Person | Self | [birth year] | Home: | [address] | | | kath[place] | | 1945 | [phone] [place] | | | [place]ha | | | [phone] | [address] | + +--------+ +--------+ + +
--- OUTSIDE RECORDS SUMMARY | ~2020-01-09 | XMS | Encounter Summary ---
Demographics + + + | Address | [address] | | | [place] [address] | + + + | Home Phone | | + + + | Preferred Language | Unknown | + + + | Marital Status | | + + + | Church Affiliation | 1013 | + + + | Race | Unknown | + + + | Ethnic Group | Unknown | + + + Author + + + | Author | [facility] | | | and [place] | + + + | Organization | [facility] | | | [...] Team Providers + +------+ + | Care Ross Furnace Operator Name | Role | Phone | + +------+ + | Thi Hutton MD | PCP | | + +------+ + Encounter Details +--------+ + + + + | Date | Type | Department | Care Team | Description | +--------+ + + + + | 09/23/ | Orders Only | [facility] | Trey, | | | 2019 | | NEPHROLOGY [place] | Bessie Her | | | | | [address] [place] | Senior Ui Designer | | | | | [address] [place] | | | | | | [address] | | | | | | [phone] | | | +--------+ + + + [...] 2020 | Visit | | [address] [facility] | | | | | | [address] [place], [place] | | | | | | [address] | | | | | | | | +--------+---------+ + + + documented as of this encounter Procedures + +--------+ + + + | Procedure Name | Priori | Date/Time | Associated Diagnosis | Comments | | | ty | | | | + +--------+ + + + | CULTURE, URINE | Routin | 04/17/2019 | | Results for this | | | e | | | procedure are in the | | | | | | results section. | + +--------+ + + + | BASIC METABOLIC | Routin | 04/15/2019 | | Results for this | | PANEL | e | | | procedure are in the | | | | | | results section. | + +--------+ + + + documented in this encounter Results Culture, Urine (04/17/2019) + + + + + + | Component | Value | Ref Range | Performed | Pathologist | | | | | At | Signature | + + + + + + | Urine | positive | | | | | Culture, | | | | | | Routine | | | | | + + + + + + + + | Specimen | + + | Urine | + + + + +--------+ + | Organism | Antibiotic | Method | Susceptibility | + + +--------+ + | Escherichia coli | Piperacillin + | | Sensitive | | | Tazobactam | | | + + +--------+ + | Escherichia coli | Cefazolin | | Sensitive | + + +--------+ + | Escherichia coli | Cefepime | | Sensitive | + + +--------+ + | Escherichia coli | Aztreonam | | Sensitive | + + +--------+ + | Escherichia coli | Ertapenem | | Sensitive | + + +--------+ + | Escherichia coli | Imipenem | | Sensitive | + + +--------+ + | Escherichia coli | Meropenem | | Sensitive | + + +--------+ + | Escherichia coli | Gentamicin | | Sensitive | + + +--------+ + | Escherichia coli | Ciprofloxacin | | Sensitive | + + +--------+ + | Escherichia coli | Levofloxacin | | Sensitive | + + +--------+ + | Escherichia coli | Tetracycline | | Sensitive | + + +--------+ + | Escherichia coli | Nitrofurantoin | | Sensitive | + + +--------+ + | Escherichia coli | Trimethoprim + | | Sensitive | | | Sulfamethoxazole | | | + + +--------+ + | Escherichia coli | Amoxicillin + | | Intermediate | | | Clavulanate | | | + + +--------+ + | Escherichia coli | Ampicillin | | Resistant | + + +--------+ + Basic Metabolic Panel (04/15/2019) + +---------+ + + + | Component | Value | Ref Range | Performed | Pathologist | | | | | At | Signature | + +---------+ + + + | Na | 141 | 132 - 143 | | | | | | mmol/L | | | + +---------+ + + + | K | 3.6 | 3.6 - 5.1 | | | | | | mmol/L | | | + +---------+ + + + | Cl | 107 | 95 - 112 mmol/L | | | + +---------+ + + + | CO2 | 26 | 19 - 31 mmol/L | | | + +---------+ + + + | Anion Gap | 12 | 7 - 21 mmol/L | | | + +---------+ + + + | Glucose | 155 (A) | 70 - 100 mg/dL | | | + +---------+ + + + | BUN | 22 | 6 - 23 mg/dL | | | + +---------+ + + + | Creatinine | 0.89 | 0.70 - 1.18 | | | | | | mg/dL | | | + +---------+ + + + | Estimated | 62.0 | 60.0 - 140.0 | | | | GFR | | mL/min/1.73m2 | | | + +---------+ + + + | BUN/Creatin | 24.7 | 6.0 - 28.6 | | | | ine Ratio | | | | | + +---------+ + + + + + | Specimen | + + | Blood | + + documented in this encounter Visit Diagnoses Not on filedocumented in this encounter"
--- OUTSIDE RECORDS SUMMARY | ~2020-01-09 | XMS | Encounter Summary ---
Demographics + + + | Address | [address] | | | [place] [address] | + + + | Home Phone | | + + + | Preferred Language | Unknown | + + + | Marital Status | | + + + | Worship Affiliation | 1013 | + + + | Race | Unknown | + + + | Ethnic Group | Unknown | + + + Author + + + | Author | [facility] | | | and [place] | + + + | Organization | [facility] | | | [...] Team Providers + +------+ + | Care Food Preparation Supervisor Name | Role | Phone | + +------+ + | Thi Hutton MD | PCP | | + +------+ + Encounter Details +--------+ + + + + | Date | Type | Department | Care Team | Description | +--------+ + + + + | 04/08/ | Imaging | [facility] | Provider, | | | 2018 | Exam | [facility] | MD [address] | | | | | IMAGING [address] | | | | | [address] [place] | [place] [address] | | | | | [place] [address] | | | | | | [phone] | | | +--------+ + + + [...] [place] | | | | | | [address] | | | | | | | | +--------+---------+ + + + documented as of this encounter Procedures + +--------+ + + + | Procedure Name | Priori | Date/Time | Associated Diagnosis | Comments | | | ty | | | | + +--------+ + + + | MRI LUMBAR SPINE WO | Routin | 03/18/2018 | | Results for this | | CONTRAST | e | 9:15 AM | | procedure are in the | | | | PDT | | results section. | + +--------+ + + + documented in this encounter Results MRI Lumbar Spine wo Contrast (03/18/2018 9:15 AM PDT) + + | Specimen | + + | | + + + + + | Narrative | Performed At | + + + | External films for comparison only | [facility] | | | | | No results will be in the chart. | | + + + + +---------+ + + | Performing | Address | City/State/Zipcode | Phone Number | | Organization | | | | + +---------+ + + | [facility] | | | | + +---------+ + + documented in this encounter Visit Diagnoses Not on filedocumented in this encounter"
--- OUTSIDE RECORDS SUMMARY | ~2020-01-09 | XMS | Encounter Summary ---
Demographics + + + | Address | [address] | | | [place] [address] | + + + | Home Phone | | + + + | Preferred Language | Unknown | + + + | Marital Status | | + + + | Shinto Affiliation | 1013 | + + + | Race | Unknown | + + + | Ethnic Group | Unknown | + + + Author + + + | Author | [facility] | | | and [place] | + + + | Organization | [facility] | | | [...] Team Providers + +------+ + | Care Personal Lines Agent Name | Role | Phone | + +------+ + PCP | Unavailable | + +------+ + Encounter Details +--------+ + + + + | Date | Type | Department | Care Team | Description | +--------+ + + + + | 04/28/ | Hospital | [facility] | Conversion | Dyspnea on exertion | | 2014 | Encounter | [facility] | Transaction, | | | | | [address] | Provider Unknown | | | | | [address] [place] [place] | [phone] | | | | | [address] | | | | | | [phone] | | | +--------+ + + + [...] 2020 | Visit | | [address] [facility] | | | | | | [address] [place], [place] | | | | | | [address] | | | | | | | | +--------+---------+ + + + documented as of this encounter Procedures + +--------+ + + + | Procedure Name | Priori | Date/Time | Associated Diagnosis | Comments | | | ty | | | | + +--------+ + + + | XR CHEST 2 VIEWS | Routin | 04/28/2015 | | Results for this | | | e | 1:20 PM | | procedure are in the | | | | PDT | | results section. | + +--------+ + + + documented in this encounter Results XR Chest 2 Vws (04/28/2015 1:20 PM PDT) + + | Specimen | + + | | + + + + + | Impressions | Performed At | + + + | 1. No acute process. | | + + + + + + | Narrative | Performed At | + + + | [facility] XR CHEST 2 VIEW FRONTAL AND LATERAL HISTORY: 70 | | | years. Female. Dyspnea and shortness of breath. TECHNIQUE: | | | Frontal and lateral views of the chest were obtained. COMPARISON: | | | None. FINDINGS: Heart is normal in size. No pulmonary vascular | | | congestion. No pneumothorax. No focal airspace disease or pleural | | | effusion. Moderate degenerative endplate change of the thoracic spine. | | | | | + + + + -+ | Procedure Note | + -+ | Harry Em Conversion - 04/03/2019 7:18 AM PDT [facility] ELKXR CHEST 2 VIEW FRONTAL AND | | LATERAL HISTORY:70 years. Female. Dyspnea and shortness of breath. TECHNIQUE:Frontal | | and lateral views of the chest were obtained. COMPARISON:None. FINDINGS:Heart is normal | | in size. No pulmonary vascular congestion. No pneumothorax. No focal airspace disease or | | pleural effusion. Moderate degenerative endplate change of the thoracic spine. | | IMPRESSION: 1. No acute process. Electronically signed by Colin Lara DO on | | 04/28/2015 1:35 PM | |Frontal and lateral views of the chest were obtained. | | | |COMPARISON: | |None. | | | |FINDINGS: | |Heart is normal in size. No pulmonary vascular congestion. No pneumothorax. No focal airspa ce disease or pleural effusion. Moderate degenerative endplate change of the thoracic spine. | | | |IMPRESSION: | |1. No acute process. | | | | | + -+ documented in this encounter Visit Diagnoses + + | Diagnosis | + + | Dyspnea on exertion Other dyspnea and respiratory abnormality | + + documented in this encounter"
--- OUTSIDE RECORDS SUMMARY | ~2020-01-09 | XMS | Encounter Summary ---
Demographics + + + | Address | [address] | | | [place] [address] | + + + | Home Phone | | + + + | Preferred Language | Unknown | + + + | Marital Status | | + + + | Zoroastrian Affiliation | 1013 | + + + | Race | Unknown | + + + | Ethnic Group | Unknown | + + + Author + + + | Author | [facility] | | | and [place] | + + + | Organization | [facility] | [...] Team Providers + +------+ + | Care Mannequin Mold Maker Name | Role | Phone | + +------+ + | Thi Hutton MD | PCP | | + +------+ + Encounter Details +--------+ + + + + | Date | Type | Department | Care Team | Description | +--------+ + + + + | 06/16/ | [facility] | [facility] | Steve Vogel, | Lumbar radiculopathy | | 2019 | Encounter | MED CTR XRAY [address] | PA-C [address] | | | | | [place] | [address] [place] | | | | | [place] [address] | [place] [address] | | | | | [phone] | [phone] | | | | | | | [...] 2020 | Visit | | [address] [facility] | | | | | | [address] [place] | | | | | | [address] | | | | | | | [...]
--- OUTSIDE RECORDS SUMMARY | ~2020-01-09 | XMS | Encounter Summary ---
Demographics + + + | Address | [address] | | | [place] [address] | + + + | Home Phone | | + + + | Preferred Language | Unknown | + + + | Marital Status | | + + + | Jain Affiliation | 1013 | + + + | Race | Unknown | + + + | Ethnic Group | Unknown | + + + Author + + + | Author | [facility] | | | and [place] | + + + | Organization | [facility] | | | and [...] Team Providers + +------+ + | Care Burr Picker Name | Role | Phone | + +------+ + | Thi Hutton MD | PCP | | + +------+ + Encounter Details +--------+ + + + + | Date | Type | Department | Care Team | Description | +--------+ + + + + | 03/28/ | Orders Only | [facility] | Yeimy Garcia | | | 2014 | | CARDIOLOGY CORI Billings MD [address] | | | | | ECHO [address] | [address]AN | | | | | [facility], [place] | [place] [address] | | | | | [address] | [phone] | | | | | [phone] | | | +--------+ + + + [...] 2019 | Visit | | [address] [facility] | | | | | | [address] [facility], [place] | | | | | | [address] | | | | | | | | +--------+---------+ + + + documented as of this encounter Procedures + +--------+ + + + | Procedure Name | Priori | Date/Time | Associated Diagnosis | Comments | | | ty | | | | + +--------+ + + + | ECHO COMPLETE | Routin | 03/28/2015 | | Results for this | | | e | 12:59 PM | | procedure are in the | | | | PDT | | results section. | + +--------+ + + + documented in this encounter Results ECHO Complete (03/28/2015 12:59 PM PDT) + + | Specimen | + + | | + + + + + | Impressions | Performed At | + + + | 1. No significant stenosis of the carotid arteries bilaterally. | | | Vertebral flow is antegrade bilaterally. | | + + + + + + | Narrative | Performed At | + + + | Patient Name: KEYUR PAIZ Date of : 1945 | | | Performing Physician: YEIMY GARCIA MD | | | | | | INDICATIONS Old 1991 Cerebral infarct CONCLUSIONS | | | 1. No significant stenosis of the carotid arteries | | | bilaterally. Vertebral flow is antegrade bilaterally. FINDINGS | | | -------- Bilateral carotids: The common, internal and external | | | carotid arteries are patent and demonstrate antegrade flow | | | bilaterally. No significant atherosclerotic plaque is identified. | | | There is no spectral broadening and the peak systolic velocity is | | | within expected range. The vertebral arteries demonstrate antegrade | | | flow. Right Subclavian Artery: Doppler velocities in the right | | | subclavian artery are within normal limits. Left Subclavian Artery: | | | Doppler velocities in the left subclavian artery are within normal | | | limits. MEASUREMENTS CCA AC: 60 deg CCA ED: | | | 20.28 cm/s CCA ED: 20.05 cm/s CCA ED: 16.62 cm/s CCA ED: | | | 21.31 cm/s CCA PS: 80.81 cm/s CCA PS: 77.46 cm/s CCA PS: | | | 73.00 cm/s CCA PS: 123.63 cm/s ICA/CCA ED: 0.76 ICA/CCA ED: | | | 0.96 ICA/CCA PS: 0.74 ICA/CCA PS: 0.56 ECA AC: 48 deg | | | ECA AC: 43 deg ECA ED: 9.74 cm/s ECA ED: 16.77 cm/s ECA | | | PS: 76.69 cm/s ECA PS: 87.86 cm/s ICA AC: 60 deg ICA AC: | | | 20 deg ICA AC: 53 deg ICA AC: 59 deg ICA AC: 48 deg | | | ICA ED: 14.43 cm/s ICA ED: 19.29 cm/s ICA ED: 17.26 cm/s | | | ICA ED: 18.43 cm/s ICA ED: 15.61 cm/s ICA ED: 20.48 cm/s | | | ICA PS: 46.01 cm/s ICA PS: 49.63 cm/s ICA PS: 47.04 cm/s | | | ICA PS: 56.19 cm/s ICA PS: 60.39 cm/s ICA PS: 70.13 cm/s | | | SUBC PS: 93.57 cm/s SUBC PS: 76.14 cm/s VERT AC: 46 deg | | | VERT AC: 60 deg VERT ED: 6.74 cm/s VERT ED: 14.37 cm/s | | | VERT PS: 30.33 cm/s VERT PS: 40.81 cm/s Relief Pharmacist: MIKE | | | Authenticated by: YEIMY GARCIA MD Report Date/Time: -- | | | [id number]:24:31 | | + + + + + | Procedure Note | + + | Harry Em - 04/10/2019 12:43 PM PDT Patient Name: Nusrat PAIZ | | : 1945 Performing Physician: YEIMY GARCIA | | MD INDICATIONS O | | sylvain 1991 Cerebral infarct CONCLUSIONS 1. No significant stenosis of the carotid | | arteries bilaterally. Vertebral flow is antegrade bilaterally. | | FINDINGS--------Bilateral carotids: The common, internal and external carotid arteries | | are patent and demonstrate antegrade flow bilaterally. No significant atherosclerotic | | plaque is identified. There is no spectral broadening and the peak systolic velocity is | | within expected range. The vertebral arteries demonstrate antegrade flow.Right | | Subclavian Artery: Doppler velocities in the right subclavian artery are within normal | | limits.Left Subclavian Artery: Doppler velocities in the left subclavian artery are | | within normal limits. MEASUREMENTS CCA AC: 60 degCCA ED: 20.28 cm/sCCA | | ED: 20.05 cm/sCCA ED: 16.62 cm/sCCA ED: 21.31 cm/sCCA PS: 80.81 cm/sCCA PS: | | 77.46 cm/sCCA PS: 73.00 cm/sCCA PS: 123.63 cm/Lora/CCA ED: 0.76ICA/CCA ED: | | 0.96ICA/CCA PS: 0.74ICA/CCA PS: 0.56ECA AC: 48 degECA AC: 43 degECA ED: 9.74 | | cm/sECA ED: 16.77 cm/sECA PS: 76.69 cm/sECA PS: 87.86 cm/Lora AC: 60 degICA AC: | | 20 degICA AC: 53 degICA AC: 59 degICA AC: 48 degICA ED: 14.43 cm/Lora ED: | | 19.29 cm/Lora ED: 17.26 cm/Lora ED: 18.43 cm/Lora ED: 15.61 cm/Lora ED: 20.48 | | cm/Lora PS: 46.01 cm/Lora PS: 49.63 cm/Lora PS: 47.04 cm/Lora PS: 56.19 cm/Lora | | PS: 60.39 cm/Lora PS: 70.13 cm/sSUBC PS: 93.57 cm/sSUBC PS: 76.14 cm/sVERT AC: | | 46 degVERT AC: 60 degVERT ED: 6.74 cm/sVERT ED: 14.37 cm/sVERT PS: 30.33 | | cm/sVERT PS: 40.81 cm/s Relief Pharmacist: DHAuthenticated by: YEIMY GARCIA [facility] | | Date/Time: -- [id number]:24:31 IMPRESSION: 1. No significant stenosis of the | | carotid arteries bilaterally. Vertebral flow is antegrade bilaterally. | | | |CCA AC: 60 deg | |CCA ED: 20.28 cm/s | |CCA ED: 20.05 cm/s | |CCA ED: 16.62 cm/s | |CCA ED: 21.31 cm/s | |CCA PS: 80.81 cm/s | |CCA PS: 77.46 cm/s | |CCA PS: 73.00 cm/s | |CCA PS: 123.63 cm/s | |ICA/CCA ED: 0.76 | |ICA/CCA ED: 0.96 | |ICA/CCA PS: 0.74 | |ICA/CCA PS: 0.56 | |ECA AC: 48 deg | |ECA AC: 43 deg | |ECA ED: 9.74 cm/s | |ECA ED: 16.77 cm/s | |ECA PS: 76.69 cm/s | |ECA PS: 87.86 cm/s | |ICA AC: 60 deg | |ICA AC: 20 deg | |ICA AC: 53 deg | |ICA AC: 59 deg | |ICA AC: 48 deg | |ICA ED: 14.43 cm/s | |ICA ED: 19.29 cm/s | |ICA ED: 17.26 cm/s | |ICA ED: 18.43 cm/s | |ICA ED: 15.61 cm/s | |ICA ED: 20.48 cm/s | |ICA PS: 46.01 cm/s | |ICA PS: 49.63 cm/s | |ICA PS: 47.04 cm/s | |ICA PS: 56.19 cm/s | |ICA PS: 60.39 cm/s | |ICA PS: 70.13 cm/s | |SUBC PS: 93.57 cm/s | |SUBC PS: 76.14 cm/s | |VERT AC: 46 deg | |VERT AC: 60 deg | |VERT ED: 6.74 cm/s | |VERT ED: 14.37 cm/s | |VERT PS: 30.33 cm/s | |VERT PS: 40.81 cm/s | | | |Relief Pharmacist: MIKE | |Authenticated by: YEIMY GARCIA MD | |Report Date/Time: -- [id number]:24:31 | | | |IMPRESSION: | |1. No significant stenosis of the carotid arteries bilaterally. Vertebral flow is antegrade bilaterally. | + + documented in this encounter Visit Diagnoses Not on filedocumented in this encounter"
--- OUTSIDE RECORDS SUMMARY | ~2020-01-09 | XMS | Encounter Summary ---
Demographics + + + | Address | [address] | | | [place] [address] | + + + | Home Phone | | + + + | Preferred Language | Unknown | + + + | Marital Status | | + + + | Methodist Affiliation | 1013 | + + + | Race | Unknown | + + + | Ethnic Group | Unknown | + + + Author + + + | Author | [facility] | | | and [place] | + + + | Organization | [facility] | | | [...] Team Providers + +------+ + | Care Quality Control Lab Technician Name | Role | Phone | + [...] | stenosis of | [address] | [place], | | | | | lumbar | [place], | [place] [address] | | | | | region, | [place] [address] | Phone: | | | | | unspecified | Phone: | [phone] | | | | | whether | [phone] | Fax: | | | | | neurogenic | Fax: | [phone] | | | | | claudication | [phone] | | | | | | present [...] Lumbar | TAMIE Wilson | [address] | | | | | radiculopath | [address] | [place], | | | | | y Spinal | [address] | [place] | | | | | stenosis of | [address] | [address] | | | | | lumbar | [place], | Phone: | | | | | region, | [place] [address] | [phone] | | | | | unspecified | Phone: | Fax: | | | | | whether | [phone] | [phone] | | | | | neurogenic | Fax: | | | | | | claudication | [phone] | | | | | | present [...] | [place], [place] | [place] [address] | lumbar region, | | | | [address] | [phone] | unspecified whether | | | | [phone] | | neurogenic | | | | [...] 2020 | Visit | | [address] [facility] | | | | | | [address] [place] | | | | | | [address] | | | | | | | [...] | | and severe facet spondylosis causes juov-zi-iifuddye central spinal | | | stenosis and [...] bulge and severe facet | | spondylosis hjdlnygtde-vy-bykwpfjl central spinal stenosis and mild bilateral | [...] bulge and severe facet spondylosis causes | |llxm-vs-ceykjghz central spinal stenosis and mild bilateral neuroforaminal [...]
--- OUTSIDE RECORDS SUMMARY | ~2020-01-09 | XMS | Encounter Summary ---
Demographics + + + | Address | [address] | | | [place] [address] | + + + | Home Phone | | + + + | Preferred Language | Unknown | + + + | Marital Status | | + + + | Adventism Affiliation | 1013 | + + + | Race | Unknown | + + + | Ethnic Group | Unknown | + + + Author + + + | Author | [facility] | | | and [place] | + + + | Organization | [facility] | | [...] Team Providers + +------+ + | Care Taper Operator Name | Role | Phone | + +------+ + PCP | Unavailable | + +------+ + Encounter Details +--------+ + + + + | Date | Type | Department | Care Team | Description | +--------+ + + + + | 04/28/ | [facility] | [facility] | Conversion | Dyspnea | | 2015 | Encounter | PULMONARY FUNCTION | Transaction, | | | | | LAB [address] | Provider Unknown | | | | | OSIEL PERSAUD | [phone] | | | | | [address] | | | | | | [phone] | | | +--------+ + + + [...] 2020 | Visit | | [address] [facility] | | | | | | 160 [place], [place] | | | | | | [address] | | | | | | | | +--------+---------+ + + + documented as of this encounter Visit Diagnoses + + | Diagnosis | + + | Dyspnea Other dyspnea and respiratory abnormality | + + documented in this encounter"
--- OUTSIDE RECORDS SUMMARY | ~2020-01-09 | XMS | Encounter Summary ---
Demographics + + + | Address | [address] | | | [place] [address] | + + + | Home Phone | | + + + | Preferred Language | Unknown | + + + | Marital Status | | + + + | Scientology Affiliation | 1013 | + + + | Race | Unknown | + + + | Ethnic Group | Unknown | + + + Author + + + | Author | [facility] | | | and [place] | + + + | Organization | [facility] | | | [...] Team Providers + +------+ + | Care Dressmaker Or Tailor Name | Role | Phone | + +------+ + | Thi Hutton MD | PCP | | + +------+ + Reason for Referral Diagnostic/Screening (Routine) +--------+--------+ + + + + | Status | Reason | Specialty | Diagnoses / | Referred By | Referred To | | | | | Procedures | Contact | Contact | +--------+--------+ + + + + | Closed | | Radiology | Diagnoses | Jaspreet | Gregory Mri | | | | | Lumbar | TAMIE Wilson | [address] | | | | | radiculopath | [address] | [place], | | | | | y Spinal | [address] | [place] | | | | | stenosis of | [address] | [address] | | | | | lumbar | [place], | Phone: | | | | | region, | [place] [address] | [phone] | | | | | unspecified | Phone: | Fax: | | | | | whether | [phone] | [phone] | | | | | neurogenic | Fax: | | | | | | claudication | [phone] | | | | | | present | | | | | | | Procedures | | | | | | | MRI Lumbar | | | | | | | Spine wo | | | | | | | Contrast | | | +--------+--------+ + + + + Reason for Visit Diagnostic/Screening (Routine) +--------+--------+ + + + + | Status | Reason | Specialty | Diagnoses / | Referred By | Referred To | | | | | Procedures | Contact | Contact | +--------+--------+ + + + + | Closed | | Radiology | Diagnoses | Jaspreet, | [facility] | | | | | Lumbar | TAMIE Wilson | [address] | | | | | radiculopath | [address] | [place], | | | | | y Spinal | [address] | [place] | | | | | stenosis of | [address] | [address] | | | | | lumbar | [place], | Phone: | | | | | region, | [place] [address] | [phone] | | | | | unspecified | Phone: | Fax: | | | | | whether | [phone] | [phone] | | | | | neurogenic | Fax: | | | | | | claudication | [phone] | | | | | | present [...] + + + + | 06/16/ | Hospital | [facility] | Steve Vogel, | Lumbar | | 2019 | Encounter | MED CTR MRI [address] | PA-C [address] | radiculopathy; | | | | [address] [place], | [address] [place] | Spinal stenosis of | | | | [place] [address] | [place] [address] | lumbar region, | | | | [phone] | [phone] | unspecified whether | | | | [...] Visit | | [address] [facility] | | | | | | [address] [place] | | | | | | [address] | | | | | | | | +--------+---------+ + + + documented as of this encounter Procedures + +--------+ + + + | Procedure Name | Priori | Date/Time | Associated Diagnosis | Comments | | | ty | | | | + +--------+ + + + | MRI LUMBAR SPINE WO | Routin | 06/16/2019 | Lumbar | Results for this | | CONTRAST | e | 11:21 AM | radiculopathy | procedure are in the | | | | PDT | Spinal stenosis of | results section. | | | | | lumbar region, | | | | | | unspecified whether | | | | | | neurogenic | | | | | | claudication present | | + +--------+ + + + documented [...] | | and severe facet spondylosis causes fvry-ia-nhfcyqxp central spinal | | | stenosis and [...] bulge and severe facet | | spondylosis iopkhvxiwq-lu-cypbgjaq central spinal stenosis and mild bilateral | [...] bulge and severe facet spondylosis causes | |kyyx-jg-xqzjzpwy central spinal stenosis and mild bilateral neuroforaminal [...] neuritis or radiculitis, unspecified | + + | Spinal stenosis of lumbar region, unspecified whether neurogenic claudication present | + + documented in this encounter"
--- OUTSIDE RECORDS SUMMARY | ~2020-01-09 | XMS | Encounter Summary ---
Demographics + + + | Address | [address] | | | [place] [address] | + + + | Home Phone | | + + + | Preferred Language | Unknown | + + + | Marital Status | | + + + | Oriental Orthodox Affiliation | 1013 | + + + | Race | Unknown | + + + | Ethnic Group | Unknown | + + + Author + + + | Author | [facility] | | | and [place] | + + + | Organization | [facility] | | | [...] Team Providers + +------+ + | Care Magnetometer Operator Name | Role | Phone | + +------+ + | Thi Hutton MD | PCP | | + +------+ + Reason for Visit + + + | Reason | Comments | + + + | Results, Imaging | | + + + Encounter Details +--------+ + + + + | Date | Type | Department | Care Team | Description | +--------+ + + + + | 06/18/ | Telephone | [facility] | Steve Vogel, | Results, Imaging | | 2018 | | PHYSIATRY [address] | PA-C [address] | | | | | [address] | [address] [place] | | | | | [place], [place] | [place] [address] | | | | | [address] | [phone] | | | | | [phone] | | | +--------+ + + + [...] | | | | | | [address] [place], [place] | | | | | | [address] | | | | | | | | +--------+---------+ + + + documented as of this encounter Visit Diagnoses Not on filedocumented in this encounter"
--- OUTSIDE RECORDS SUMMARY | ~2020-01-09 | XMS | Encounter Summary ---
Demographics + + + | Address | [address] | | | [place] [address] | + + + | Home Phone [...] Team Providers + +------+ + | Care Bead Machine Operator Name | Role | Phone | [...] [address] | [place], [place] | | | | | [place] | [address] | | | | | [address] | | | | | | [phone] | | | +--------+ + + + [...] 2020 | Visit | | [address] [facility] | | | | | | [facility] | | | | | | [address] | | | | | | | [...] + + | Performing | Address | City/[facility] | Phone Number | | Organization | [...]
--- OUTSIDE RECORDS SUMMARY | ~2020-01-09 | XMS | Encounter Summary ---
Demographics + + + | Address | [address] | | | [place] [address] | + + + | Home Phone | | + + + | Preferred Language | Unknown | + + + | Marital Status | | + + + | Congregational Affiliation | 1013 | + + + [...] Team Providers + +------+ + | Care Bacteriology Teacher Name | Role | Phone | + +------+ + | Thi Hutton MD | PCP | | + +------+ + Encounter Details +--------+ + + + + | Date | Type | Department | Care Team | Description | +--------+ + + + + | 06/10/ | Orders Only | [facility] | Jaspreet, Steve, | Lumbar radiculopathy | | 2019 | | PHYSIATRY [address] | PA-C [address] | (Primary Dx) | | | | [address] | [address] [place] | | | | | [place], [place] | [place] [address] | | | | | [address] | [phone] | | | | | [phone] | | | +--------+ + + + [...] | Visit | | [address] [facility] | | | | | | [address] [place] | | | | | | [address] | | | | | | | | +--------+---------+ + + + documented as of this encounter Results XR Lumbar Spine 4 [...]
--- OUTSIDE RECORDS SUMMARY | ~2020-01-09 | XMS | Encounter Summary ---
Demographics + + + | Address | [address] | | | [place] [address] | + + + | Home Phone | | + + + | Preferred Language | Unknown | + + + | Marital Status | | + + + | Jewish Affiliation | 1013 | + + + [...] Team Providers + +------+ + | Care Physical Fitness Trainer Name | Role | Phone | + +------+ + PCP | Unavailable | + +------+ + Encounter Details +--------+ + + + + | Date | Type | Department | Care Team | Description | +--------+ + + + + | 04/28/ | Hospital | [facility] | Conversion | Dyspnea on exertion | | 2014 | Encounter | [facility] | Transaction, | | | | | [address] | Provider Unknown | | | | | [address] | [phone] | | | | | [address] | | | | | | [phone] | | | +--------+ + + + [...] 2020 | Visit | | [address] [facility] | | | | | | [address] [place], [place] | | | | | | [address] | | | | | | | [...]
--- OUTSIDE RECORDS SUMMARY | ~2020-01-09 | XMS | Encounter Summary ---
Demographics + + + | Address | [address] | | | [place] [address] | + + + | Home Phone | | + + + | Preferred Language | Unknown | + + + | Marital Status | | + + + | Anabaptism Affiliation | 1013 | + + + | Race | Unknown | + + + | Ethnic Group | Unknown | + + + Author + + + | Author | [facility] | | | and [place] | + + + | Organization | [facility] | | | [...] Team Providers + +------+ + | Care Safety And Health Manager Name | Role | Phone | + [...] | Lumbar | Belle, | [address] | | | | | radiculopath | Brice Garcia MD | [place], | | | | | y | [address] | [place] | | | | | Procedures | [place] | [address] | | | | | ME INJECT | [place], [place] | Phone: | | | | | ANES/STEROID | [address] | [phone] | | | | | FORAMEN | Phone: | Fax: | | | | | LUMBAR/SACRA | [phone] | [phone] | | | | | L W IMG | Fax: | | | | | | GUIDE ,1 | [phone] | | | | | | LEVEL ME | | | | | | | TRIAMCINOLON | | | | | | | E ACET INJ | | | | | | | NOS, 10 MG | | | | | | | L4-L5 ILESI | | | +--------+--------+ + + + + Encounter Details +--------+ + + + + | Date | Type | Department | Care Team | Description | +--------+ + + + + | 07/15/ | Hospital | [facility] | Bogdanowicz, | Lumbar | | 2018 | Encounter | MED CTR XRAY [address] | TAMIE Saab [address] | radiculopathy; | | | | [address] [place] | [address] | Spinal stenosis of | | | | [place] [address] | [place] [address] | lumbar region, | | | | [phone] | [phone] | unspecified whether | | | | | | neurogenic | | | | | [facility] | claudication | | | | | [place] | present; | | | | | | Degenerative disc | | | | | | disease, lumbar | +--------+ + + + + Social [...] +---------+ + + | Blood Pressure | 166/87 | 07/15/2018 2:32 PM | | | | | PST | | + +---------+ + + | Pulse | 80 | 07/15/2018 2:12 PM | | | | | PST | | + +---------+ + + | [...] 2020 | Visit | | [address] [facility] | | | | | | [address] [place], [place] | | | | | | [address] | | | | | | | | +--------+---------+ + + + documented as of this encounter Procedures + +--------+ + + + | Procedure Name | Priori | Date/Time | Associated Diagnosis | Comments | | | ty | | | | + +--------+ + + + | FL EPIDURAL STEROID | Routin | 07/15/2018 | Lumbar | Results for this | | INJ LUMBAR SACRAL | e | 2:16 PM | radiculopathy | procedure are in the | | INTERLAMINAR | | PST | Spinal stenosis of | results section. | | | | | lumbar region, | | | | | | unspecified whether | | | | | | neurogenic | | | | | | claudication present | | | | | | Degenerative disc | | | | | | disease, lumbar | | + +--------+ + + + documented in this encounter Results FL JANKI Lumbar Sacral Interlaminar (07/15/2018 2:16 PM PST) + + | Specimen | + + | | + + + + + | Narrative | Performed At | + + + | | [facility] | | 07/15/2018LUMBAR INTERLAMINAR EPIDURAL STEROID INJECTION CLINICAL | | [...] approximately 1 mL of iodinated contrast which showed epidural flow. | | | Then, a combination of 3 mL of normal saline and 2 mL of 6 mg/mL | | | betamethasone was infused. The patient tolerated the procedure well | | | without complications. Pre- and post-procedure blood pressures were | | | stable. The patient was given verbal as well as written followup | | | instructions. Prior to the start of the procedure, the following were | | | performed and verified, including correct patient identity, correct | | | site/side marked and visible, agreement on the procedure to be done, | | | correct patient positioning and an accurate procedure consent form. | | | Any safety precautions based on clinical history and/or medication use | | | have been addressed. I personally performed the procedure above. | | | Estimated blood loss: MinimalComplications: NoneFindings: As | | | expectedAnesthesia: Local 1% Lidocaine | | | | | |I personally performed the procedure above. | | | | | |Estimated blood loss: Minimal | | |Complications: None | | |Findings: As expected | | |Anesthesia: Local 1% Lidocaine | | | | | + + + + +---------+ + + | Performing | Address | City[facility]State[facility] | Phone Number | | Organization [...] whether neurogenic claudication present | + + | Degenerative disc disease, lumbar Degeneration of lumbar or lumbosacral | | intervertebral disc | + + documented in this encounter Administered Medications + +--------+ +------+------+------+ | Medication Order | MAR | Action | Dose | Rate | Site | | | Action | Date | | | | + +--------+ +------+------+------+ | betamethasone (CELESTONE | Given | 07/15/20 | 9 mg | | | | SOLUSPAN) injection 9 mg 9 mg, | | 18 2:25 | | | | | Other, ONCE, 07/15/18 at | | PM PST | | | | | 1415, For 1 dose, Shake well. Not | | | | | | | for IV use., | | | | | | + +--------+ +------+------+------+ +---+---+ | | | +---+---+ + +-------+ +-------+---+---+ | iohexol (OMNIPAQUE 300) 300 | Given | 07/15/20 | 4 mLs | | | | mg/mL injection 4 mL 4 mL, | | 18 2:20 | | | | | Other, ONCE, 07/15/18 at | | PM PST | | | | | 1415, For 1 dose | | | | | | + +-------+ +-------+---+---+ +---+---+ | | | +---+---+ + +-------+ +-------+---+ + | lidocaine buffered 0.9% | Given | 07/15/20 | 3 mLs | | Other | | injection 3 mL 3 mL, | | 18 2:15 | | | (Comment | | Intradermal, ONCE, 07/15/18 | | PM PST | | | ) | | at 1415, For 1 dose | | | | | | + +-------+ +-------+---+ + +---+---+ | | | +---+---+ documented in this encounter"
--- OUTSIDE RECORDS SUMMARY | ~2020-01-09 | XMS | Encounter Summary ---
Demographics + + + | Address | [address] | | | [place] [address] | + + + | Home Phone | | + + + | Preferred Language | Unknown | + + + | Marital Status | | + + + | Islam Affiliation | 1013 | + + + | Race | Unknown | + + + | Ethnic Group | Unknown | + + + Author + + + | Author | [facility] | | | and [place] | + + + | Organization | [facility] | | [...] Team Providers + +------+ + | Care Associate Doctor Name | Role | Phone | + +------+ + PCP | Unavailable | + +------+ + Encounter Details +--------+ + + + + | Date | Type | Department | Care Team | Description | +--------+ + + + + | 12/04/ | Hospital | [facility] | | | | 1994 | Encounter | [facility] | | | | | | CENTER [address] | | | | | | [place] | | | | | | [address] | | | | | | [phone] | | | +--------+ + + + [...] 2020 | Visit | | [address] [facility] | | | | | | [facility] | | | | | | [address] | | | | | | | | +--------+---------+ + + + documented as of this encounter Visit Diagnoses Not on filedocumented in this encounter"
--- OUTSIDE RECORDS SUMMARY | ~2020-01-09 | XMS | Encounter Summary ---
Demographics + + + | Address | [address] | | | [place] [address] | + + + | Home Phone | | + + + | Preferred Language | Unknown | + + + | Marital Status | | + + + | Baptist Affiliation | 1013 | + + + | Race | Unknown | + + + | Ethnic Group | Unknown | + + + Author + + + | Author | [facility] | | | and [place] | + + + | Organization | [facility] | | [...] Team Providers + +------+ + | Care Mgmt Specialist Name | Role | Phone | + +------+ + | Thi Hutton MD | PCP | | + +------+ + Encounter Details +--------+ + + + + | Date | Type | Department | Care Team | Description | +--------+ + + + + | 03/28/ | Orders Only | [facility] | Sridhar Tavarez | | | 2014 | | CARDIOLOGY CORI Billings MD [address] | | | | | N[facility] MED [address] | [address] | | | | | [address] | [place] [address] | | | | | [place], [place] | [phone] | | | | | [address] | | | | | | [phone] | | | +--------+ + + + [...] 2019 | Visit | | [address] [facility] | | | | | | [address] [place], [place] | | | | | | [address] | | | | | | | | +--------+---------+ + + + documented as of this encounter Procedures + +--------+ + + + | Procedure Name | Priori | Date/Time | Associated Diagnosis | Comments | | | ty | | | | + +--------+ + + + | NM MYOCARDIAL | Routin | 03/28/2015 | | Results for this | | PERFUSION MULT SPECT | e | 11:11 AM | | procedure are in the | | | | PDT | | results section. | + +--------+ + + + documented in this encounter Results NM Myocardial Perfusion Mult SPECT (03/28/2015 11:11 AM PDT) + + | Specimen | + + | | + + + + + | Impressions | Performed At | + + + | No ischemia noted on this myocardial perfusion imaging. | | | Diaphragmatic attenuation artifact noted. Stress EKG is negative for | | | ischemia. Normal LV systolic function with no wall motion | | | abnormalities. Sridhar Tavarez MD | | + + + + + + | Narrative | Performed At | + + + | [facility] Nuclear Treadmill Stress Test | | | TEST DATE: 03/28/2015 INDICATION FOR TEST: 70 year old female | | | being evaluated for dyspnea. RISK FACTORS: hypertension, family | | | history PROCEDURE: Emanuel protocol. Rest dose- 11.2 mCi of 99m Tc | | | Myoview given intravenously. Stress dose- At 03:00 minutes 29.7 mCi of | | | 99m Tc Myoview given intravenously. Effective Dose Equivalent: 14.1 | | | mSv. The predicted exercise time was 4 minutes. Patient's Predicted | | | Maximum HR: 150. Patient's Predicted 85% Max HR: 128 bpm. REST | | | DATA: HR: 68 bpm BP: 133 / 90 Rest EKG shows NSR 69BPM, non specific | | | ST T changes. STRESS DATA: Exercise Time: 03:00 minutes, HR | | | achieved: 146 bpm, Max BP: 184/97. RPP: [id number]. METS: 4.60.Symptoms | | | severe shortness of breath. The test was terminated due to shortness | | | of breath. Max heart rate 146 bpm at 97 % of MPHR. Stress EKG shows no | | | significant ST T changes, no arrhythmias noted. GATED IMAGES: | | | Rest EDV: 109 mL Rest ESV: 48 mL Stress EDV: 104 mL Stress ESV: 30 mL. | | | EJECTION FRACTION: REST EF: 56% STRESS EF: 71%. IMAGIN. | | | The quality of the study is good. 2. Perfusion showed large fixed | | | inferior defect noted with some improvement on stress images, | | | diaphragmatic attenuation artifact noted. 3. LV Cavity size is normal | | | with TID: 0.71). 4. Gated SPECT images showed normal LV systolic | | | function with no wall motion abnormalities. 5. There is no previous | | | test to compare with. | | + + + + + | Procedure Note | + + | Harry Em Conversion - 04/10/2019 12:43 PM [facility] | Tread[facility] Stress Test TEST DATE: 03/28/2015 INDICATION FOR TEST: 70 year old female | | being evaluated for dyspnea. RISK FACTORS: hypertension, family history PROCEDURE: Emanuel | | protocol. Rest dose- 11.2 mCi of 99m Tc Myoview given intravenously. Stress dose- At | | 03:00 minutes 29.7 mCi of 99m Tc Myoview given intravenously. Effective Dose Equivalent: | | 14.1 mSv. The predicted exercise time was 4 minutes. Patient's Predicted Maximum HR: | | 150. Patient's Predicted 85% Max HR: 128 bpm. REST DATA: HR: 68 bpm BP: 133 / 90 Rest | | EKG shows NSR 69BPM, non specific ST T changes. STRESS DATA: Exercise Time: 03:00 | | minutes, HR achieved: 146 bpm, Max BP: 184/97. RPP: 17464. METS: 4.60.Symptoms severe | | shortness of breath. The test was terminated due to shortness of breath. Max heart rate | | 146 bpm at 97 % of MPHR. Stress EKG shows no significant ST T changes, no arrhythmias | | noted. GATED IMAGES: Rest EDV: 109 mL Rest ESV: 48 mL Stress EDV: 104 mL Stress ESV: 30 | | mL. EJECTION FRACTION: REST EF: 56% STRESS EF: 71%. IMAGIN. The quality of the study | | is good.2. Perfusion showed large fixed inferior defect noted with some improvement on | | stress images, diaphragmatic attenuation artifact noted.3. LV Cavity size is normal | | with TID: 0.71).4. Gated SPECT images showed normal LV systolic function with no wall | | motion abnormalities.5. There is no previous test to compare with. IMPRESSION: No | | ischemia noted on this myocardial perfusion imaging.Diaphragmatic attenuation artifact | | noted.Stress EKG is negative for ischemia.Normal LV systolic function with no wall | | motion abnormalities. Sridhar Tavarez MD | |GATED IMAGES: Rest EDV: 109 mL Rest ESV: 48 mL Stress EDV: 104 mL Stress ESV: 30 mL. | | | |EJECTION FRACTION: REST EF: 56% STRESS EF: 71%. | | | |IMAGING: | |1. The quality of the study is good. | |2. Perfusion showed large fixed inferior defect noted with some improvement on stress imag es, diaphragmatic attenuation artifact noted. | |3. LV Cavity size is normal with TID: 0.71). | |4. Gated SPECT images showed normal LV systolic function with no wall motion abnormalities . | |5. There is no previous test to compare with. | | | |IMPRESSION: | |No ischemia noted on this myocardial perfusion imaging. | |Diaphragmatic attenuation artifact noted. | |Stress EKG is negative for ischemia. | |Normal LV systolic function with no wall motion abnormalities. | | | | | |Sridhar Tavarez MD | | | | | + + documented in this encounter Visit Diagnoses Not on filedocumented in this encounter"
--- OUTSIDE RECORDS SUMMARY | ~2020-01-09 | XMS | Encounter Summary ---
Demographics + + + | Address | [address] | | | [place] [address] | + + + | Home Phone | | + + + | Preferred Language | Unknown | + + + | Marital Status | | + + + | Gnosticist Affiliation | 1013 | + + + | Race | Unknown | + + + | Ethnic Group | Unknown | + + + Author + + + | Author | [facility] | | | and [place] | + + + | Organization | [facility] | | [...] Team Providers + +------+ + | Care Online Marketing Specialist Name | Role | Phone | [...] | Lumbar | [place], | [address] | | | | | radiculopath | Brice Garcia MD | [place], | | | | | y | [address] | [place] | | | | | Procedures | [address] [place] | [address] | | | | | OR INJECT | [place], [place] | Phone: | | | | | ANES/STEROID | [address] | [phone] | | | | | FORAMEN | Phone: | Fax: | | | | | LUMBAR/SACRA | [phone] | [phone] | | | | | L W IMG | Fax: | | | | | | GUIDE ,1 | [phone] | | | | | | LEVEL OR | | | | | | | [...] + + | 07/15/ | Hospital | [facility] | Bogdanowicz, | Lumbar | | 2018 | Encounter | MED CTR XRAY [address] | [address] | radiculopathy; | | | | [place] | [address] | Spinal stenosis of | | | | [place] [address] | [place] [address] | lumbar region, | | | | [phone] | [phone] | unspecified whether | | | | | | neurogenic | | | | | [employer], [facility] | claudication | | | | [...] 2020 | Visit | | [address] [facility] | | | | | | [address] [place], [place] | | | | | | [address] | | | | | | | [...] + + | Performing | Address | City[facility] | Phone Number | | Organization [...]
--- OUTSIDE RECORDS SUMMARY | ~2020-01-09 | XMS | Encounter Summary ---
Demographics + + + | Address | [address] | | | [place] [address] | + + + | Home Phone | | + + + | Preferred Language | Unknown | + + + | Marital Status | | + + + | Catholic Affiliation | 1013 | + + + | Race | Unknown | + + + | Ethnic Group | Unknown | + + + Author + + + | Author | [facility] | | | and [place] | + + + | Organization | [facility] [...] Team Providers + +------+ + | Care Shot Grinder Operator Name | Role | Phone | [...] | | | [address] [place] | [place] [address] | | | | | [place] [address] | | | | | | [phone] | | | +--------+ + + + [...] 2020 | Visit | | [address] [facility] | | | | | | [address] [place], [place] | | | | | | [address] | | | | | | | [...]
--- OUTSIDE RECORDS SUMMARY | ~2020-01-09 | XMS | Encounter Summary ---
Demographics + + + | Address | [address] | | | [place] [address] | + + + | Home Phone | | + + + | Preferred Language | Unknown | + + + | Marital Status | | + + + | Baptism Affiliation | 1013 | + + + | Race | Unknown | + + + | Ethnic Group | Unknown | + + + Author + + + | Author | [facility] | | | and [place] | + + + | Organization | [facility] | | [...] Team Providers + +------+ + | Care Mat Gauger Name | Role | Phone | + +------+ + | Tih Hutton MD | PCP | | + +------+ + Reason for Referral Evaluate & Treat (Routine) +--------+ + + + + + | Status | Reason | Specialty | Diagnoses / | Referred By | Referred To | | | | | Procedures | Contact | Contact | +--------+ + + + + + | Closed | Specialty | Physical | Diagnoses | | [address] [facility] | | | Services | Therapy | Lumbar | Bogdanowicz, | ARIA | | | Required | | radiculopath | Katiana, [facility] | | | | | y Spinal | PA-C [address] | | | | | stenosis of | [address], | [address] | | | | | lumbar | [address] | [place], [place] | | | | | region, | [place], [place] | [address] | | | | | unspecified | [address] | Phone: | | | | | whether | Phone: | [phone] | | | | | neurogenic | [phone] | Fax: | | | | | claudication | Fax: | [phone] | | | | | present | [phone] | | | | | | Degenerative | | | | | | | disc | | | | | | | disease, | | | | | | | lumbar | | | | | | | Acute | | | | | | | midline | | | | | | | thoracic | | | | | | | back pain | | | | | | | Procedures | | | | | | | Re faxed | | | | | | | 07/22 06/23 | | | +--------+ + + + + + Reason for Visit + + + | Reason | Comments | + + + | Back Pain | Left leg pain | + + + Evaluate & Treat (Routine) +--------+ + + + + + | Status | Reason | Specialty | Diagnoses / | Referred By | Referred To | | | | | Procedures | Contact | Contact | +--------+ + + + + + | Closed | Specialty | Physical | Diagnoses | Arthur, | Belle, | | | Services | Medicine and | Lumbar | Stefania | Brice Garcia MD | | | Required | Rehabilitatio | radiculopath | TAMIE Steinberg | [address] | | | | n | y | [address] [place] | | | | | [address] | [place], [place] | | | | | | [place] | [address] Phone: | | | | | | [place] [address] | [phone] | | | | | | [place] [address], | Fax: | | | | | | [place] [address] | [phone] | | | | | | Phone: | | | | | | | [phone] | | | | | | | Fax: | | | | | | | [phone] | | +--------+ + + + + + Encounter Details +--------+---------+ + + + | Date | Type | Department | Care Team | Description | +--------+---------+ + + + | 06/19/ | Office | [facility] | Shaylacz, | Lumbar | | 2018 | Visit | PHYSIATRY [address] | TAMIE Saab [address] | radiculopathy; | | | | [address] | [address] | Spinal stenosis of | | | | [place] | [place] [address] | lumbar region, | | | | [address] | [phone] | unspecified whether | | | | [phone] | | neurogenic | | | | | | claudication | | | | | | present; | | | | | | Degenerative disc | | | | | | disease, lumbar; | | | | | | Acute midline | | | | | | thoracic back pain | +--------+---------+ + + + Social History [...] + + + | Blood Pressure | 117/82 | 06/19/2018 1:23 PM | | | | | PDT | | + + + + + | Pulse | 81 | 06/19/2018 1:23 PM | | | | | PDT [...] + + + + | Weight | 86.2 kg (190 lb) | 06/19/2018 1:23 PM | | | | | PDT | | + + + + + | Height | 161.3 cm (5' 3.5") | 06/19/2018 1:23 PM | | | | | PDT | | + + + + + | Body Mass Index | 33.13 | 06/19/2018 1:23 PM | | | | | PDT | | + + + + + documented in this encounter Patient Instructions Patient Instructions Katiana Meza PA-C - 06/19/2018 1:40 PM PDT1) Epidural injecti on with Dr. Odonnell 2) physical therapy Spinal Stenosis: Stenosis refers to the narrowing of the spinal cord. This most often occurs with age and generative changes of the spine. Narrowing of the spinal cord causes compression and inflam mation of nerves in the lower back and can cause numbness, pain, and weakness in the back, b uttocks and legs. You may notice you have more pain with standing and walking. It feels be tter to walk more bent over at the waist, while pushing a grocery cart or walker. You get r elief with sitting down. Treatment includes pain medicine, gabapentin, transforaminal epidu ral steroid injections to help reduce swelling, physical therapy and surgery. Steroids are a very strong anti-inflammatory, this helps reduce pain by reducing swelling. Complications of steroids are bleeding, infection, and an increase of blood sugars if you are diabetic. intermediate designer risk can lead to osteoporosis which is why we limited the number of injections to 3 times per year. Epidural injections target the spinal stenosis by putting the steroid around the nerves that come out of the spine with hopes the steroid gets into t he region of the stenosis. The procedure is about 20 minutes long. You will lie on your arlen k while x-rays are taken. Once the region is marked, it is numbed and then injected with st eroids. Follow-up at the hospital thirty minutes before your scheduled procedure to allow for time to check in. You may eat and drink as usual on the day of the procedure. If you are scheduled for an epidural injection do not take any blood thinning medications f or at least 5-7 days prior to your procedure unless you have been instructed by another phys ician not to discontinue blood thinning medications. If you are having a procedure other than an epidural injection (i.e. facet injection, media l branch block, SI joint injection or other joint injection) it is not absolutely necessary to discontinue blood thinning medications but doing so will decrease the risk of bruising or bleeding. If you have had a prior stroke, DVT or PE or if you are taking blood thinning medication be cause you have atrial fibrillation, a prosthetic cardiac valve replacement or heart stenting do not stop taking your blood thinning medications unless you have permission from your car diologist or primary care provider. All other medications should be taken as usual on the day of the procedure. Common blood thinning medications include: Aspirin (a baby aspirin is o.k.) Ibuprofen (Advil or Motrin) Naproxen (Aleve) Nabumetone (Relafen) Clopidogrel (Plavix) Dipyridamole/ASA (Aggrenox) Warfarin (Coumadin) Dabigatran (Pradaxa) Rivaroxaban (Xarelto) There are many others. If you have questions about your medications and whether or not you should stop any medications please contact our office. If you are having an epidural injection or if you take any medication for relaxation/sedati on on the day of the procedure you must provide a delivery motorcycle driver to take you home. For all procedur es it is recommended that someone else drive you home. documented in this encounter Progress Notes Katiana Meza PA-C - 06/19/2018 1:40 PM PDTFormatting of this note might be differe nt from the original. Katiana Meza PA-C [address] [facility], [address] [place], [place] [address] FAX: PHYSICAL MEDICINE AND REHABILITATION H&P CHIEF COMPLAINT: Chief Complaint Patient presents with Back Pain Left leg pain HISTORY OF PRESENT ILLNESS: The patient is a 73 y.o. female being seen today for complaint s of low back pain with radiation into the buttocks and anterior thighs to the knees, left g reater than right. Since the symptoms began, she has noticed that symptoms have been improving. She describes the pain as a aching, sharp and shooting feeling. She rates the pain as moderate to severe. Her symptoms worsen with walking, standing. Her symptoms improve with sitting in a recliner chair and rest. The patient also describes leg symptoms that occur on both sides. The leg symptoms account for greater than or equal to 50% of her symptoms. The leg symptoms are constant and the sy mptoms travels from the low back into the anterior thighs to the knees. The patient does not describe numbness of the legs. She does not report weakness of the l egs. She does not have bowel and bladder dysfunction. She does not have saddle anesthesia . Treatments for these complaints have included chiropractic therapy, NSAIDs, she received a left L4-L5 lumbar epidural injection with Dr. Odonnell on June 05 and reports no immedi ate relief followed by 50% relief after 24 hours followed by 50% relief after 2 weeks. Patient's medications, allergies, past medical, surgical, social and family histories were reviewed and updated as appropriate. PAST MEDICAL HISTORY: Past Medical History: Diagnosis Date Anemia Ankle fracture, left Back pain Benign essential HTN Cerebral hemorrhage (HCC) 1990 Degenerative disc disease, lumbar Essential (primary) hypertension Fracture of right toe Fracture of right toe History of blood transfusion History of fracture of left ankle History of heart attack 1990 Hypertension Hypothyroidism (acquired) Lumbar pain Lumbar radiculopathy 06/19/2018 Neck fracture (HCC) Osteoarthritis Osteopenia of multiple sites Palpitations Polycystic kidney Primary osteoarthritis of both knees Seasonal allergies Spinal stenosis of lumbar region, unspecified whether neurogenic claudication present Stroke (HCC) Thyroid condition PAST SURGICAL HISTORY: Past Surgical History: Procedure Laterality Date BLADDER SUSPENSION SECTION PARTIAL HYSTERECTOMY Ovaries remain RECTAL PROLAPSE REPAIR CURRENT MEDICATIONS: Current Outpatient [...] Disease Alcohol abuse Brother Hypertension Maternal Grandmother No Known Problems Brother REVIEW OF SYSTEMS: GENERALLY: No fever, chills, no night sweats, no weight gain, no weight loss, no anemia, no fatigue. EYES: No eye problems, no impaired sight, no eye glasses/contacts, no eye injury, no doubl e vision, no transient blindness. EARS, NOSE, THROAT and MOUTH: No change in sense taste/smell, no hearing difficulty, no ri nging in ears, no drainage from ears, no ear injury, no dizziness, no voice change, no diffi culty swallowing, no snoring, no sleep apnea/CPAP, no sinus trouble, no dental work. NEUROMUSCULAR: No numbness/pain of arms, no numbness/pain of legs, no awake with numbness/ pain, no weakness, no muscle aching, no coordination difficulty, no change in walk, no head injury, no neck injury, no back injury, no pain in neck, no pain in back, no stroke, no delores ting spells, no loss of consciousness, no tremor/shaking, no seizures, no headaches, no migr aines, no memory loss, no speech difficulty, no confusion, no numbness of face. PSYCHIATRIC: No depression, no difficulty sleeping, no anxiety, no bipolar disorder. CARDIOVASCULAR/PULMONARY: No heart attack, no heart murmur, no fluttering heart, no shortn ess of breath, no cough, no Tuberculosis, no chest pain, no swelling ankles, no bloody cough ing, no asthma, no COPD/emphysema. GASTROINTESTINAL: No bowel disease, no nausea/vomiting, no rectal bleeding/hemorroids, no constipation, no fecal/stool incontinence, no liver/gallbladder disease, no abdominal pain. KIDNEY DISEASE: No frequent urination, no painful/difficult with urination, no urinary inco ntinence, no bladder problems, no impotence, no irregular period, no vaginal discharge. ENDOCRINE: No diabetes, no thyroid disease, no osteoporosis/osteopenia, no drainage from br easts. INTEGUMENTARY/SKIN: No lump in breasts, no skin disease or skin changes, no rash/itch. HEMATOLOGIC: No enlarged lymph nodes, no ease or unusual bleeding, no cancer. RHEUMATOLOGIC: No joint pain/arthritis, no Rheumatoid Arthritis PHYSICAL EXAMINATION: Vitals: 06/19/18 1323 BP: 117/82 Pulse: 81 PainSc: 1 PainLoc: Back Body mass index is 33.13 kg/m. GENERAL: The patient is well developed and well nourished. She does not appear uncomfortab le when seated. HEENT: HEAD/FACE: EYES: EARS: NASOPHARNYX: OROPHARNYX: Normocephalic and atraumatic. There are no areas of recent trauma. Normal sclerae without icterus. No drainage or tenderness. Clear without drainage. Clear without erythema. SKIN Limited skin exam shows no significant rashes or lesions. There are not scars in the lumbar region. CHEST: The patient is in no acute respiratory distress with unlabored respirations. HEART: There is not lower extremity edema. ABDOMEN: The patient is not overweight. NEUROLOGIC: The patient is awake, alert, and oriented to time, place, person. She follows simple and complex commands. Her speech is fluent. She comprehends speech well. She has no apparent deficits with short or fpc memory. She has appropriate fund of knowledge Cranial nerves 2-12 appear grossly intact. Sensory exam does not show diminished sensation to light touch in the lower extremities. MUSCULOSKELETAL There is no tenderness in the midline of the cervical or thoracic spine. T here is no major palpable deformity of the spine. Straight leg raise and slump-sit are negative. Zia's maneuver and impingement testing were negative for any groin pain. There was no tenderness to palpation over the greater tr ochanters or sacral sulci. The patient localized the majority of the pain to the lower lumb ar sacral region. Lumbar facet loading was negative. Strength testing showed 5/5 strength throughout the lower extremities. The patient was able to heel and toe walk without difficu lty. There was no redness, effusion, warmth or joint line tenderness in the knees or ankles . The patient's imaging was reviewed in detail [...] yahir stable on flexion and extension. ASSESSMENT: 1. Lumbar radiculopathy 2. Spinal stenosis of lumbar region, unspecified whether neurogenic claudication present 3. Degenerative disc disease, lumbar 4. Acute midline thoracic back pain PLAN: The patient has had significant conservative care including medications (NSAIDS and narcoti cs), PT (multiple sessions over the years) and zoo caretaker. Unfortunately she continue s to have significant discomfort. It appears to me that the pain is primarily coming from t he spinal stenosis at L3/L4. I did feel that she would be a good candidate for intervention al procedures and I offered L4/L5 ILESI for cumulative effect. We discussed starting physical therapy for her posture, thoracic spine and lumbar spine, re daniella was sent to the rack in [place]. The patient will follow-up 2 months after the steroid epidural injection physical therapy t o discuss response. ELECTRONICALLY SIGNED BY: Katiana Meza PA-C, 06/19/2018 CC: documented in t his encounter Plan of Treatment +--------+---------+ + + + | Date | Type | Specialty | Care Team | Description | +--------+---------+ + + + | 06/27/ | Office | Nephrology | Pillo Condon MD | | | 2020 | Visit | | [address] [facility] | | | | | | [address] [place], [place] | | | | | | [address] | | | | | | | | +--------+---------+ + + + + + +--------+ + + | Name | Type | Priori | Associated Diagnoses | Order Schedule | | | | ty | | | + + +--------+ + + | * [facility] | Outpatient | Routin | Lumbar | Ordered: 06/19/2018 | | Therapy - AMB | Referral | e | radiculopathy | | | Referral | | | Spinal Stenosis Of | | | | | | Lumbar Region, | | | | | | Unspecified Whether | | | | | | Neurogenic | | | | | | Claudication Present | | | | | | Degenerative disc | | | | | | disease, lumbar | | | | | | Acute Midline | | | | | | Thoracic Back Pain | | + + +--------+ + + documented as of this encounter Results FL JANKI Lumbar Sacral [...] | | intervertebral disc | + + | Acute midline thoracic back pain | + + documented in this encounter
--- OUTSIDE RECORDS SUMMARY | ~2020-01-09 | XMS | Encounter Summary ---
Demographics + + + | Address | [address] | | | [place] [address] | + + + | Home Phone | | + + + | Preferred Language | Unknown | + + + | Marital Status | | + + + | Spiritism Affiliation | 1013 | + + + | Race | Unknown | + + + | Ethnic Group | Unknown | + + + Author + + + | Author | [facility] | | | and [place] | + + + | Organization | [facility] | | | [...] Team Providers + +------+ + | Care Organ Assembler Name | Role | Phone | + +------+ + | Thi Hutton MD | PCP | | + +------+ + Encounter Details +--------+ + + + + | Date | Type | Department | Care Team | Description | +--------+ + + + + | 09/23/ | Orders Only | [facility] | Trey, | | | 2019 | | NEPHROLOGY [place] | Bessie Her | | | | | [address] [place] | Assembler Final | | | | | [address] [place] | | | | | | [address] | | | | | | [phone] | | | +--------+ + + + [...] 2020 | Visit | | [address] [facility] | | | | | | [address] [place], [place] | | | | | | [address] | | | | | | | [...]
--- OUTSIDE RECORDS SUMMARY | ~2020-01-09 | XMS | Encounter Summary ---
Demographics + + + | Address | [address] | | | [place] [address] | + + + | Home Phone | | + + + | Preferred Language | Unknown | + + + | Marital Status | | + + + | Anglican Affiliation | 1013 | + + + | Race | Unknown | + + + | Ethnic Group | Unknown | + + + Author + + + | Author | [facility] | | | and [place] | + + + | Organization | [facility] | | | and [...] Team Providers + +------+ + | Care Reporting Manager Name | Role | Phone | + +------+ + | Thi Hutton MD | PCP | | + +------+ + Reason for Visit + + + | Reason | Comments | + + + | Follow-up | Back Pain | + + + Encounter Details +--------+---------+ + + + | Date | Type | Department | Care Team | Description | +--------+---------+ + + + | 11/03/ | Office | [facility] [place] | Steve Vogel, | Lumbar radiculopathy | | 2019 | Visit | PHYSIATRY [address] | PA-C [address] | (Primary Dx) | | | | [address] | [address] [place] | | | | | [place], [place] | [place] [address] | | | | | [address] | [phone] | | | | | [phone] | | | +--------+---------+ + + + Social History [...] + + + | Blood Pressure | 143/94 | 11/03/2018 9:06 AM | | | | | PDT | | + + + + + | Pulse | 69 | 11/03/2018 9:06 AM | | | | | PDT | [...] Weight | 86.2 kg (190 lb) | 11/03/2018 9:06 AM | | | | | PDT | | + + + + + | Height | 161.3 cm (5' 3.5") | 11/03/2018 9:06 AM | | | | | PDT | | + + + + + | Body Mass Index | 33.13 | 11/03/2018 9:06 AM | | | | | PDT | | + + + + + documented in this encounter Patient Instructions Patient Instructions Steve Vogel PA-C - 11/03/2018 9:32 AM PDTRepeat injection ordered. -------- We will call in a week to get you scheduled. --------- Possible Causes of Low Back or Leg Pain BIG: The symptoms in your back or leg may be due to pressure on a nerve. This pressure may be caused by a damaged disk or by abnormal bone growth. Either way, you may feel pain, burni ng, tingling, or numbness. If you have pressure on a nerve that connects to the sciatic nerv e, pain may shoot down your leg. Pressure from the disk Constant wear and tear can weaken a disk over time and cause back pain. The disk can then b e damaged by a sudden movement or injury. If its soft center starts to bulge, the disk may p ress on a nerve. Or the outside of the disk may tear, and the soft center may squeeze throug h and pinch a nerve. Pressure from bone As a disk wears out, the vertebrae right above and below the disk start to touch. This can put pressure on a nerve. Often, abnormal bone (called bone spurs) grows where the vertebrae rub against each other. This can cause the foramen or the spinal canal to narrow (called epifanio nosis) and press against a nerve. Date Last Reviewed: 10/17/[id number] [employer]. [address] [place] [address], [place] [address]. All [facility] ts reserved. This information is not intended as a substitute for professional medical care. Always follow your healthcare professional's instructions. documented in this encounter Progress Notes Steve Vogel PA-C - 11/03/2018 9:20 AM PDTFormatting of this note might be different fro m the original. [address] [facility], [address] [place] [address] FAX: PHYSICAL MEDICINE AND REHABILITATION H&P CHIEF COMPLAINT: Chief Complaint Patient presents with Follow-up Back Pain HISTORY OF PRESENT ILLNESS: The patient is a 73 y.o. female being seen today for complaint s of low back pain with radiation into the buttocks and anterior thighs to the knees, left g reater than right. She had a L4-5 IL JANKI left of midline on July 15, 2018. She reports 100% relief for 3 months. She reports increased functionality and decreased use of medicat ions. She is here today because she reports pain is began to return. Since the symptoms began, she has noticed that symptoms have been worsening. She describes the pain as a aching, [...] epidural injection with Dr. Odonnell on June 05, 2018 and reports no immediate relief followed by 50% relief after 24 [...] PARTIAL HYSTERECTOMY Ovaries remain RECTAL PROLAPSE REPAIR WRIST SURGERY Left CURRENT MEDICATIONS: Current Outpatient Prescriptions Medication Sig Dispense Refill hydroCHLOROthiazide (MICROZIDE) 12.5 MG capsule Take 1 capsule by mouth Daily. 4 lisinopril (PRINIVIL,ZESTRIL) 40 MG tablet Take 40 mg by mouth Daily. thyroid (ARMOUR THYROID) 120 MG tablet Take by mouth. No current facility-administered medications for this visit. [...] pain/arthritis, no Rheumatoid Arthritis PHYSICAL EXAMINATION: Vitals: 11/03/18 0906 BP: (!) 143/94 Pulse: 69 PainSc: 2 PainLoc: Back Body mass index is 33.13 [...] has no apparent deficits with short or shelter memory. She has appropriate fund of knowledge [...] testing showed 5/5 strength throughout the lower extremities, exception left hip flexion 4/5. The patient was able to h eel and toe walk without difficulty. There was no redness, effusion, warmth or joint line t enderness in the knees or ankles. The patient's imaging was reviewed in detail with the patient today during the visit. The Lumbar MRI from 03/18/2018 shows L3-4 4 millimeter anterolisthesis with disc bulge, facet hyp ertrophy and facet subluxation causing moderately severe central canal stenosis. L4-5 disc height loss with broad-based disc bulge causing mild bilateral neural foraminal narrowing an d likely subluxed facet joints. Lumbar x-rays show spondylolisthesis at L3 over 4 on flexion extension views. This is larg yahir stable on flexion and extension. ASSESSMENT: 1. Lumbar radiculopathy PLAN: 1) Today we discussed the patient's differential diagnosis with the likely primary issue be ing LUMBAR RADICULOPATHY L4/5. Patient's description of symptoms, physical exam, and imaging suggest this diagnosis at this time. 2) I counseled patient on treatment options which included conservative self management usi ng OTC NSAIDs/Ice and heat packs, physical therapy, prescription medications, epidural stero id injection, neuromodulation devices, as well as possible surgical intervention. 3) Imaging: As descibed above in radiology review. 4) The patient has had significant conservative care including medications (NSAIDS and narc otics), PT (multiple sessions over the years) and critical care physician assistant. Unfortunately Jojo Gracia continues to have significant discomfort. It appears to me that the pain is primarily coming from L3/4 stenosis. I did feel that Jojo Gracia would be a good candidate for interventional procedures a nd I offered a repeat L4/5 ILESI left of midline to be done. Patient has had L4/5 IL JANKI in the past and reports 100% relief for 3 months. She reports increased functionality and decreased use of medications. She is here today because she rep orts pain is began to return. 5) Patient will follow up with me 3 weeks post injection to discuss any imaging and/or prog ress with today's treatment plan. I spent 30 minutes in visit with Jojo Gracia today with the majority of time spent couns elling the patient on her diagnosis, options for her care, and coordinating her care. documented in this en counter Plan of Treatment +--------+---------+ + + + | Date | Type | Specialty | Care Team | Description | +--------+---------+ + + + | 06/27/ Office | Nephrology | Pillo Condon MD | | | 2019 | Visit | | [address] [facility] | | | | | | [address] [place], [place] | | | | | | [address] | | | | | | | [...] | HISTORY: ICD-10 CODE M54.16 LUMBAR RADICULOPATHY Griceldapablito Gracia | | | presents to the [...]
--- OUTSIDE RECORDS SUMMARY | ~2020-01-09 | XMS | Encounter Summary ---
Demographics + + + | Address | [address] | | | [place] [address] | + + + | Home Phone | | + + + | Preferred Language | Unknown | + + + | Marital Status | | + + + | Religion Affiliation | 1013 | + + + | Race | Unknown | + + + | Ethnic Group | Unknown | + + + Author + + + | Author | [facility] | | | and [place] | + + + | Organization | [facility] | | | and [...] Team Providers + +------+ + | Care Blasting Worker Name | Role | Phone | + [...] + + | Closed | Specialty | Neurosurgery | Diagnoses | Jaspreet, | Shanae, | | | Services | | Lumbar | TAMIE Wilson | Naun Madera DO | | | Required | | radiculopath | [address] | | | | | y Spinal | [address] | [address] | | | | | stenosis of | [address] | [place], [place] | | | | | lumbar | [place], | [address] Phone: | | | | | region, | [place] [address] | [phone] | | | | | unspecified | Phone: | Fax: | | | | | whether | [phone] | [phone] | | | | | neurogenic | Fax: | | | | | | claudication | [phone] | | | | | | present | | | | | | | Degenerative | | | | | | | disc | | | | | | | disease, | | | | | | | lumbar | | | +--------+ + + + + + Reason for Visit + + + | Reason | Comments | + + + | Imaging | | + + + | Back Pain | | + + + Encounter Details +--------+ + + + + | Date | Type | Department | Care Team | Description | +--------+ + + + + | 06/04/ | Telephone | [facility] | Steve Vogel, | Imaging; Back Pain | | 2019 | | PHYSIATRY [address] | PA-C [address] | | | | | [address] | [address] [place] | | | | | [place] | [place] [address] | | | | | [address] | [phone] | | | | | [phone] | | | +--------+ + + + [...] 2020 | Visit | | [address] [facility] | | | | | | [address] [place] | | | | | | [address] | | | | | | | | +--------+---------+ + + + + + +--------+ + + | Name | Type | Priori | Associated Diagnoses | Order Schedule | | | | ty | | | + + +--------+ + + | Neurosurgery_Shanae | Outpatient | Routin | Lumbar | Ordered: 06/04/2019 | | | Referral | e | [...] | | disease, lumbar | | + + +--------+ + + [...] disc | + + documented in this encounter"
--- OUTSIDE RECORDS SUMMARY | ~2020-01-09 | XMS | Clinical Summary ---
Demographics + + + | Address | [address] | | | [place] [address] | + + + | Home Phone | | + + + | Preferred Language | Unknown | + + + | Marital Status | | + + + | Yarsani Affiliation | 1013 | + + + | Race | Unknown | + + + | Ethnic Group | Unknown | + + + Author + + + | Author | [facility] | | | and [place] | + + + | Organization | [facility] | | | [...] Team Providers + +------+ + | Care Perinatal Technician Name | Role | Phone | + +------+ + | Thi Hutton MD | PCP | | + +------+ + Allergies + + + + + + | Active Allergy | Reactions | Severity | Noted | Comments | | | | | Date | | + + + + + + | Codeine | Other (See Comments) | Medium | 04/28/20 | Reaction not | | | | | 15 | specified in outside | | | | | | medical records | + + + + + + | Meperidine | Anaphylaxis | High | 01/21/20 | | | | | | 15 | | + + + + + + | Morphine | Anaphylaxis | High | 01/21/20 | | | | | | 15 | | + + + + + + | Morphine And Related | Nausea And Vomiting, | Medium | 07/21/20 | 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 | | | Comments) | | | | + + + + + + | Baclofen | Other (See Comments) | | 04/25/20 | Reaction not | | | | | 18 | specified in outside | | | | | | medical records | + + + + + + | Carisoprodol | Other (See Comments) | | 04/25/20 | Reaction not | | | | | 18 | specified in outside | | | | | | medical records | + + + + + + | Cyclobenzaprine | Other (See Comments) | | 04/25/20 | Reaction not | | | | | 18 | specified in outside | | | | | | medical records | + + + + + + | Methocarbamol | Other (See Comments) | | 04/25/20 | Reaction not | | | | | 18 | specified in outside | | | | | | medical records | + + + + + + | Tizanidine | Other (See Comments) | | 04/25/20 | Reaction not | | | | | 18 | specified in outside | | | | | | medical records | + + + + + + | Morphine And Related | Other (See Comments) | | 04/25/20 | Reaction not | | | | | 18 | specified in outside | | | | | | medical records | + + + + + + Medications + + + +---------+------+------+-------+ | Medication | Sig | Dispensed | Refills | Star | End | Statu | | | | | | t | Date | s | | | | | | Date | | | + + + +---------+------+------+-------+ | | Take 1 capsule by | | 4 | 09/0 | | Activ | | hydroCHLOROthiazide | mouth Daily. | | | 3/20 | | e | | (MICROZIDE) 12.5 MG | | | | 18 | | | | capsule | | | | | | | + + + +---------+------+------+-------+ | thyroid (ARMOUR | Take by mouth. | | 0 | | | Activ | | THYROID) 120 MG | | | | | | e | | tablet | | | | | | | + + + +---------+------+------+-------+ | lisinopril | Take 40 mg by mouth | | 0 | | | Activ | | (PRINIVIL,ZESTRIL) | Daily. | | | | | e | | 40 MG tablet | | | | | | | + + + +---------+------+------+-------+ | cholecalciferol | Take 2,000 Units by | | 0 | | | Activ | | (CHOLECALCIFEROL) | mouth Daily. | | | | | e | | 1000 units TABS | | | | | | | + + + +---------+------+------+-------+ | metoprolol | TK 1 T PO QD | | 4 | 05/2 | | Activ | | succinate | | | | 3/20 | | e | | (TOPROL-XL) 50 mg 24 | | | | 19 | | | | hr tablet | | | | | | | + + + +---------+------+------+-------+ | DHEA 50 MG TABS | Take 50 mg by mouth | | 0 | | | Activ | | | Daily. | | | | | e | + + + +---------+------+------+-------+ | B Complex Vitamins | Take by mouth. | | 0 | | | Activ | | (VITAMIN-B COMPLEX | | | | | | e | | PO) | | | | | | | + + + +---------+------+------+-------+ | GRAPE SEED ER PO | Take 100 mg by | | 0 | | | Activ | | | mouth. | | | | | e | + + + +---------+------+------+-------+ | Potassium | Take by mouth. | | 0 | | | Activ | | Gluconate 550 MG | | | | | | e | | TABS | | | | | | | + + + +---------+------+------+-------+ | MAGNESIUM PO | Take 200 mg by | | 0 | | | Activ | | | mouth. | | | | | e | + + + +---------+------+------+-------+ | ketorolac | TAKE 1 TABLET BY | | 0 | 11/2 | 05/0 | Disco | | (TORADOL) 10 MG | MOUTH 3 TIMES DAILY | | | /20 | 4/20 | ntinu | | tablet | NEEDED FOR PAIN | | | 18 | 20 | ed | | | | | | | | (May | | | | | | | | ent | | | | | | | | Not | | | | | | | | Takin | | | | | | | | g) | + + + +---------+------+------+-------+ | nitrofurantoin | | | 0 | 03/2 | 05/0 | Disco | | (MACROBID) 100 mg | | | | 5/20 | 4/20 | ntinu | | capsule | | | | 19 | 20 | ed | | | | | | | | (May | | | | | | | | ent | | | | | | | | Not | | | | | | | | Takin | | | | | | | | g) | + + + +---------+------+------+-------+ | | TK 1 T PO BID FOR 14 | | 0 | 08/2 | 05/0 | Disco | | sulfamethoxazole-tri | DAYS | | | 8/20 | 4/20 | ntinu | | methoprim (BACTRIM | | | | 19 | 20 | ed | | DS) 800-160 mg per | | | | | | (May | | tablet | | | | | | ent | | | | | | | | Not | | | | | | | | Takin | | | | | | | | g) | + + + +---------+------+------+-------+ | traMADol (ULTRAM) | take 1 tablet by | | 0 | 12/0 | 05/0 | Disco | | 50 mg tablet | mouth every 8 hours | | | 1/20 | 4/20 | ntinu | | | if needed for pain | | | 18 | 20 | ed | | | | | | | | (May | | | | | | | | ent | | | | | | | | Not | | | | | | | | Takin | | | | | | | | g) | + + + +---------+------+------+-------+ | thyroid (ARMOUR) | Take by mouth | | 0 | | 05/0 | Disco | | 120 MG tablet | Daily. | | | | 4/20 | ntinu | | | | | | | 20 | ed | | | | | | | | (May | | | | | | | | ent | | | | | | | | Not | | | | | | | | Takin | | | | | | | | g) | + + + +---------+------+------+-------+ | predniSONE | 1 tab PO 13 hours | 3 | 0 | 09/0 | 05/0 | Disco | | (DELTASONE) 50 mg | before procedure, 1 | tablet | | 5/20 | 4/20 | ntinu | | tablet | tab PO 7 hours | | | 19 | 20 | ed | | | before procedure, 1 | | | | | (May | | | tab PO 1 hour before | | | | | ent | | | procedure | | | | | Not | | | | | | | | Takin | | | | | | | | g) | + + + +---------+------+------+-------+ Active Problems + + + | Problem | Noted Date | + + + | CKD (chronic kidney disease) stage 3, GFR 30-59 ml/min | 12/21/2019 | + + + | Persistent proteinuria | 12/21/2019 | + + + | Polycystic kidney | 08/20/2019 | + + + | Anemia | 08/20/2019 | + + + | Essential (primary) hypertension | 08/20/2019 | + + + | Fracture of left radius | 07/19/2018 | + + + | Lumbar radiculopathy | 06/19/2018 | + + + | Spinal stenosis of lumbar region, unspecified whether neurogenic | 06/19/2018 | | claudication present | | + + + | Degenerative disc disease, lumbar | 06/19/2018 | + + + | Acute midline thoracic back pain | 06/19/2018 | + + + Encounters +--------+ + + + + | Date | Type | Specialty | Care Team | Description | +--------+ + + + + | 12/23/ | Documentati | Nephrology | Trey, | Other (Medical Hist | | 2020 | on | | [facility] | questionnaire) | | | | | Automation Software Engineer | | +--------+ + + + + | 12/23/ | Documentati | Nephrology | Yang, | Other (Abdomen | | 2020 | on | | Bessie Her | pelvis CT 04/27/19) | | | | | Automation Software Engineer | | +--------+ + + + + | 12/20/ | Office | Nephrology | Pillo Condon MD | Polycystic kidney | | 2019 | Visit | | | (Primary Dx); CKD | | | | | | (chronic kidney | | | | | | disease) stage 3, | | | | | | GFR 30-59 ml/min | | | | | | ([facility]); Persistent | | | | | | proteinuria; | | | | | | Essential (primary) | | | | | | hypertension | +--------+ + + + + | 12/20/ | Orders Only | Nephrology | Pillo Condon MD | Essential (primary) | | 2019 | | | | hypertension | | | | | | (Primary Dx); | | | | | | Polycystic kidney; | | | | | | CKD (chronic kidney | | | | | | disease) stage 3, | | | | | | GFR 30-59 ml/min | | | | | | ([facility]); Persistent | | | | | | proteinuria | +--------+ + + + + | 12/15/ | Documentati | Nephrology | Yang, | Results (12/15/19) | | 2020 | on | | [facility] | | | | | | Automation Software Engineer | | +--------+ + + + + from Last 3 Months Family History + + +------+ + | Medical History | Relation | Name | Comments | + + +------+ + | Alcohol abuse | Brother | | | + + +------+ + | No known problems | Brother | | | + + +------+ + | Other (see comment) | Father | | Nayana Vermaig's Disease | + + +------+ + | High blood pressure | Maternal | | | | | Grandmoth | | | | | er | | | + + +------+ + | Cancer | Mother | | Melanoma | + + +------+ + | Diabetes | Mother | | | + + +------+ + | Heart disease | Mother | | | + + +------+ + | High blood pressure | Mother | | | + + +------+ + + +------+ + + | Relation | Name | Status | Comments | + +------+ + + | Brother | | | | + +------+ + + | Brother | | | | + +------+ + + | Father | | | | + +------+ + + | Maternal Grandmother | | | | + +------+ + + | Mother | | | | + +------+ + + Social [...] recent travel history available. | + + Last Filed Vital Signs + + + + + | Vital Sign | Reading | Time Taken | Comments | + + + + + | Blood Pressure | 148/92 | 12/21/2019 2:49 PM | | | | | PDT | | + + + + + | Pulse | 86 | 12/21/2019 2:49 PM | | | | | PDT | | + + + + + | Temperature | - | - | | + + + + + | Respiratory Rate | - | - | | + + + + + | Oxygen Saturation | 94% | 12/21/2019 2:49 PM | | | | | PDT | | + + + + + | Inhaled Oxygen | - | - | | | Concentration | | | | + + + + + | Weight | 88.5 kg (195 lb) | 12/21/2019 2:49 PM | | | | | PDT | | + + + + + | Height | 161.3 cm (5' 3.5") | 12/21/2019 2:49 PM | | | | | PDT | | + + + + + | Body Mass Index | 34 | 12/21/2019 2:49 PM | | | | | PDT | | + + + + + Plan of Treatment +--------+---------+ + + + | Date | Type | Specialty | Care Team | Description | +--------+---------+ + + + | 06/27/ | Office | Nephrology | Pillo Condon MD | | | 2019 | Visit | | [address] [facility] | | | | | | [address] [place] | | | | | | [address] | | | | | | | | +--------+---------+ + + + + + + + + | Health Maintenance | Due Date | Last Done | Comments | + + + + + | Hepatitis C | | | | | Screening | 5 | | | + + + + + | Vaccine: | | | | | Dtap/Tdap/Td (1 - | 6 | | | | Tdap) | | | | + + + + + | Colorectal Cancer | | | | | Screening | 5 | | | | (Colonoscopy) | | | | + + + + + | Vaccine: Zoster (1 | | | | | of 2) | 5 | | | + + + + + | Breast Cancer | | | | | Screening | 0 | | | + + + + + | Vaccine: | | | | | Pneumococcal 65+ (1 | 0 | | | | of 2 - PCV13) | | | | + + + + + | Adult Annual | | | | | Wellness Visit | 8 | | | + + + + + | Statin Therapy | | | | | (optimal intensity) | 8 | | | + + + + + | Vaccine: Influenza | | | | | (Season Ended) | 0 | | | + + + + + Procedures + +--------+ + + + | Procedure Name | Priori | Date/Time | Associated Diagnosis | Comments | | | ty | | | | + +--------+ + + + | URINALYSIS | Routin | 12/15/2019 | | Results for this | | | e | | | procedure are in the | | | | | | results section. | + +--------+ + + + | CBC NO DIFFERENTIAL | Routin | 12/15/2019 | | Results for this | | | e | | | procedure are in the | | | | | | results section. | + +--------+ + + + | BASIC METABOLIC | Routin | 12/15/2019 | | Results for this | | PANEL | e | | | procedure are in the | | | | | | results section. | + +--------+ + + + | PROTEIN/CREATININE | Routin | 12/15/2019 | | Results for this | | RATIO, URINE | e | | | procedure are in the | | | | | | results section. | + +--------+ + + + | URIC ACID | Routin | 12/15/2019 | | Results for this | | | e | | | procedure are in the | | | | | | results section. | + +--------+ + + + | CULTURE, URINE | Routin | 12/15/2019 | | Results for this | | | e | | | procedure are in the | | | | | | results section. | + +--------+ + + + from Last 3 Months Results CBC with Manual Differential (12/15/2019) + + + + + + | Component | Value | Ref Range | Performed | Pathologist | | | | | At | Signature | + + + + + + | WBC | 7.3 | 4.5 - 11.0 | | | + + + + + + | RBC | 4.61 | 3.80 - 5.10 | | | | | | M/uL | | | + + + + + + | Hemoglobin | 13.6 | 12 - 16 | | | + + + + + + | Hematocrit, | 40.1 | 35.0 - 45.0 % | | | | POC | | | | | + + + + + + | MCV | 87.1 | 81.0 - 99.0 fL | | | + + + + + + | MCH | 30.0 | 27.0 - 33.0 pg | | | + + + + + + | MCHC | 34.0 | 30.0 - 36.0 | | | + + + + + + | Platelet | 236 | 140 - 440 | | | | Count | | | | | | Plasma | | | | | + + + + + + | RDW | 15.2 (A) | 10.5 - 15.0 | | | + + + + + + | BAL | 59 | 39 - 80 % | | | | Neutrophils | | | | | | % | | | | | + + + + + + | % | 28 | 24 - 44 | | | | Lymphocytes | | | | | + + + + + + | Monocyte % | 9.1 | 0 - 12 | | | + + + + + + | BAL | 3 | 0 - 6 % | | | | Eosinophils | | | | | | % | | | | | + + + + + + | BF % | 1 | 0 - 2 % | | | | Basophils | | | | | + + + + + + + + | Specimen | + + | Blood | + + Protein/Creatinine Ratio, Urine (12/15/2019) + +-------+ + + + | Component | Value | Ref Range | Performed | Pathologist | | | | | At | Signature | + +-------+ + + + | Protein/Cre | 120.8 | 0 - 150 | | | | at Ratio | | | | | + +-------+ + + + + + | Specimen | + + | Urine | + + Urinalysis (12/15/2019) + + + + + + | Component | Value | Ref Range | Performed | Pathologist | | | | | At | Signature | + + + + + + | Color | yellow | | | | + + + + + + | Clarity | Clear | | | | + + + + + + | Specific | 1.013 | 1.001 - 1.030 | | | | Thayer, | | | | | | Urine | | | | | + + + + + + | pH, Urine | 6.0 | 5.0 - 8.0 | | | + + + + + + | Protein, | Negative | Negative | | | | Urine | | | | | + + + + + + | Glucose, | Negative | Negative | | | | Urine | | | | | + + + + + + | Ketones, | Negative | Negative | | | | Urine | | | | | + + + + + + | Bilirubin, | Negative | Negative | | | | Urine | | | | | + + + + + + | Blood, | Negative | Negative | | | | Urine | | | | | + + + + + + | Nitrite, | Negative | Negative | | | | Urine | | | | | + + + + + + | Urobilinoge | Normal | < 0.2 mg/dL, | | | | n, Urine | | 1.0 mg/dL, 4.0 | | | | | | mg/dL, Normal, | | | | | | 1.0 E.U./dL, | | | | | | 0.2 E.U./dL, | | | | | | 0.2 mg/dL, | | | | | | Negative, 1 | | | | | | mg/dL, <2.0 | | | | | | mg/dL | | | + + + + + + | Leukocyte | Small (A) | Negative | | | | Esterase, | | | | | | Urine | | | | | + + + + + + | CASTS | Negative | | | | + + + + + + | WBC UA | 10 | /HPF | | | + + + + + + | RBC UA | 2 | /HPF | | | + + + + + + | EPITHELIAL | 1 | /LPF | | | | CASTS UA | | | | | + + + + + + | CRYSTAL UA | Negative | | | | + + + + + + | Bacteria, | 0 | | | | | UA | | | | | + + + + + + + + | Specimen | + + | Urine | + + Culture, Urine (12/15/2019) + + + + + + | Component | Value | Ref Range | Performed | Pathologist | | | | | At | Signature | + + + + + + | Urine | negative | | | | | Culture, | | | | | | Comprehensi | | | | | | ve | | | | | + + + + + + + + | Specimen | + + | Urine | + + Uric Acid (12/15/2019) + +-------+ + + + | Component | Value | Ref Range | Performed | Pathologist | | | | | At | Signature | + +-------+ + + + | Uric Acid | 6.5 | 2.3 - 6.6 | | | + +-------+ + + + + + | Specimen | + + | Blood | + + Basic Metabolic Panel (12/15/2019) + + + + + + | Component | Value | Ref Range | Performed | Pathologist | | | | | At | Signature | + + + + + + | Na | 137 | 132 - 143 | | | | | | mmol/L | | | + + + + + + | K | 4.3 | 3.6 - 5.1 | | | | | | mmol/L | | | + + + + + + | Cl | 103 | 95 - 112 mmol/L | | | + + + + + + | CO2 | 22 | 19 - 31 mmol/L | | | + + + + + + | Anion Gap | 16 | 7 - 21 mmol/L | | | + + + + + + | Glucose | 115 (A) | 70 - 100 mg/dL | | | + + + + + + | BUN | 26 (A) | 6 - 23 mg/dL | | | + + + + + + | Creatinine | 1.06 | 0.70 - 1.18 | | | | | | mg/dL | | | + + + + + + | Estimated | 51.0 (A) | 60.0 - 140.0 | | | | GFR | | mL/min/1.73m2 | | | + + + + + + | BUN/Creatin | 24.5 | 6.0 - 28.6 | | | | ine Ratio | | | | | + + + + + + + + | Specimen | + + | Blood | + + from Last 3 Months Insurance + +--------+ +--------+ +---------+--------+ | Payer | Benefi | Subscriber | Effect | Phone | Address | Type | | | t Plan | ID | teagan | | | | | | / | | Dates | | | | | | Group | | | | | | + +--------+ +--------+ +---------+--------+ | MEDICARE | MEDICA | [id number] | | [phone] | | Medica | | | RE | | 012-Pr | 5 | | re | | | PART A | | esent | | | | | | AND B | | | | | | + +--------+ +--------+ +---------+--------+ | MEDICARE | MEDICA | [id number] | 12/18/19 | [phone] | | Medica | | | RE | | 13-Pre | 5 | | re | | | PART A | | sent | | | | | | AND B | | | | | | + +--------+ +--------+ +---------+--------+ | [employer] | MUTUAL | [id number] | 09/19/19 | [phone] | | Indemn | | | AND | | 18-Pre | 0 | | ity | | | [place] | | sent | | | | | | [place] | | | | | | | | MDCR | | | | | | | | SUPPL | | | | | | + +--------+ +--------+ +---------+--------+ | [employer] | MUTUAL | [id number] | 09/19/19 | [phone] | | Indemn | | | AND | | 18-Pre | 0 | | ity | | | [place] | | sent | | | | | | [place] | | | | | | | | MDCR | | | | | | | | SUPPL | | | | | | + +--------+ +--------+ +---------+--------+ + +--------+ +--------+ + + | Guarantor Name | Accoun | Relation to | Date | Phone | Billing Address | | | t Type | Patient | of | | | | | | | | | | + +--------+ +--------+ + + | Jojo Gracia | Person | Self [birth year] | [address] | | | al/Fam | | 1945 | [phone] | [place], [place] | | | [place] | | | [address] ([place]) | [phone] | + +--------+ +--------+ + + | Jojo Gracia | Person | Self | [birth year] | [address] | | | al/Fam | | 1945 | [phone] | [place] | | | [place] | | | [address] ([place]) | [phone] | + +--------+ +--------+ + + Advance Directives + + + + + | Type | Date Recorded | Patient | Explanation | | | | Twine Reeling Machine Operator | | + + + + + | Power of | | | | | Senior Mechanical Engineer | | | | + + + + + | Advance | 05/08/2018 11:35 | | | | Directive | AM | | | + + + + +
--- OUTSIDE RECORDS SUMMARY | ~2020-01-09 | XMS | Encounter Summary ---
Demographics + + + | Address | [address] | | | [place] [address] | + + + | Home Phone | | + + + | Preferred Language | Unknown | + + + | Marital Status | | + + + | Hindu Affiliation | 1013 | + + + | Race | Unknown | + + + | Ethnic Group | Unknown | + + + Author + + + | Author | [facility] | | | and [place] | + + + | Organization | [facility] | | | and [...] Team Providers + +------+ + | Care Plant Attendant Or Assistant Operator Name | Role | Phone | + +------+ + | Thi Hutton MD | PCP | | + +------+ + Reason for Visit +---------+ + | Reason | Comments | +---------+ + | Results | 12/15/19 | +---------+ + Encounter Details +--------+ + + + + | Date | Type | Department | Care Team | Description | +--------+ + + + + | 12/15/ | Documentati | [facility] | Yang, | Results (12/15/19) | | 2020 | on | NEPHROLOGY [place] | [facility] | | | | | [address] | [facility] | | | | | [address] [facility] | | | | | | [place], [place] | | | | | | [address] | | | | | | [phone] | | | +--------+ + + + [...] 2020 | Visit | | [address] [facility] | | | | | | [address] [place], [place] | | | | | | [address] | | | | | | | [...] documented in this encounter Results Culture, Urine (12/15/2019) + + + + [...] 1.001 - 1.030 | | | | [place], | | | | | | Urine [...] + + | Urine | + + CBC with Manual Differential (12/15/2019) + + [...]
--- OUTSIDE RECORDS SUMMARY | ~2020-01-09 | XMS | Encounter Summary ---
Demographics + + + | Address | [address] | | | [place] [address] | + + + | Home Phone | | + + + | Preferred Language | Unknown | + + + | Marital Status | | + + + | Advent Affiliation | 1013 | + + + | Race | Unknown | + + + | Ethnic Group | Unknown | + + + Author + + + | Author | [facility] | | | and [place] | + + + | Organization | [facility] | | | [...] Team Providers + +------+ + | Care Valve Technician Name | Role | Phone | + +------+ + PCP | Unavailable | + +------+ + Encounter Details +--------+ + + + + | Date | Type | Department | Care Team | Description | +--------+ + + + + | 04/28/ | [facility] | [facility] | Conversion | Dyspnea | | 2015 | Encounter | PULMONARY FUNCTION | Transaction, | | | | | LAB [address] | Provider Unknown | | | | | OSIEL PERSAUD | [phone] | | | | | [address] | | | | | | [phone] | | | +--------+ + + + [...] 2020 | Visit | | [address] [facility] | | | | | | [address] [place], [place] | | | | | | [address] | | | | | | | | +--------+---------+ + + + documented as of this encounter Visit Diagnoses + + | Diagnosis | + + | Dyspnea Other dyspnea and respiratory abnormality | + + documented in this encounter"
--- OUTSIDE RECORDS SUMMARY | ~2020-01-09 | XMS | Encounter Summary ---
Demographics + + + | Address | [address] | | | [place] [address] | + + + | Home Phone | | + + + | Preferred Language | Unknown | + + + | Marital Status | | + + + | Shinto Affiliation | 1013 | + + + | Race | Unknown | + + + | Ethnic Group | Unknown | + + + Author + + + | Author | [facility] | | | and [place] | + + + | Organization | [facility] | | | [...] Team Providers + +------+ + | Care Retort Cooler Name | Role | Phone | + +------+ + | Thi Hutton MD | PCP | | + +------+ + Reason for Visit + + + | Reason | Comments | + + + | Follow-up, Office | injection | | Visit | | + + + Evaluate & [...] | | | | | [address] | [place], [place] | | | | | | [address] | [address] Phone: | | | | | | [address] | [phone] | | | | | | [place], | Fax: | | | | | | [place] [address] | [phone] | | | | | | Phone: | | | | | | | [phone] | | | | | | | Fax: | | | | | | | [phone] | | +--------+ + + + + + Encounter Details +--------+---------+ + + + | Date | Type | Department | Care Team | Description | +--------+---------+ + + + | 04/23/ | Office | [facility] | Steve Vogel, | Lumbar radiculopathy | | 2019 | Visit | PHYSIATRY [address] | PA-C [address] | (Primary Dx) | | | | [address] | [address] [place] | | | | | [place], [place] | [place] [address] | | | | | [address] | [phone] | | | | | [phone] | | | +--------+---------+ + + + [...] + + + | Blood Pressure | 146/92 | 04/23/2019 12:57 PM | | | | | PDT | | + + + + + | Pulse | 86 | 04/23/2019 12:57 PM | | | | | PDT [...] + + + + | Weight | 82.6 kg (182 lb 1.6 | 04/23/2019 12:57 PM | | | | oz) | PDT | | + + + + + | Height | 161.3 cm (5' 3.5") | 04/23/2019 12:57 PM | | | | | PDT | | + + + + + | Body Mass Index | 31.75 | 04/23/2019 12:57 PM | | | | | PDT | | + + + + + documented in this encounter Patient Instructions Patient Instructions Steve Vogel PA-C - 04/23/2019 1:00 PM PDTFormatting of this note m ight be different from the original. Injections ordered to target back pain and leg symptoms. Medication prescribed to take before injection to help reduce adverse procedure response. T divya as directed. Injection orders usually take about a week for insurance to authorize my order. Once approv ed, we will call you for scheduling. Expect a call from our office in 7-10 days. Please remember to complete pain log form after having injection. This is an insurance requ irement and allows faster approval of any future injections. Follow-up at the hospital thirty minutes before [...] of the procedure you must provide a city route driver to take you home. Common Spine and Disk Problems The most common serious back problemshappen when disks tear, bulge, or rupture. In such c ases, an injured disk can no longer cushion the vertebrae and absorb shock. As a result, the rest of your spine may also weaken. This can lead to pain, stiffness, and other symptoms. Torn annulus. A sudden movement may cause a tiny tear in an annulus. Nearby ligaments ma y stretch. Contained herniated disk. As a disk wears out, the nucleus may bulge into the annulus an d press on nerves. Extruded herniateddisk. When a disk ruptures, its nucleus can squeeze out and irritate a nerve. Arthritis. As disks wear out over time, bone spurs form. These growths can irritate nerv es and inflame facets. Instability. As a disk stretches, the vertebrae slip back and forth. This can put pressu re on the annulus. Spondylolisthesis.Thisis a condition in which one vertebra has moved forward or back ace, in relation to the one above or below it. Thiscauses a crack (stress fracture) in th e areas that link the vertebrae together. This may put pressure on the annulus, stretch the disk, and irritate nerves. Date Last Reviewed: 01/17/201819991957-0941 [employer]. [address] [place] [address], [place] [address]. All [facility] ts reserved. This information is not intended as a substitute for professional medical care. Always follow your healthcare professional's instructions. documented in this encounter Progress Notes Steve Vogel PA-C - 04/23/2019 1:00 PM PDTFormatting of this note might be different fro m the original. Steve Vogel PA-C [address] [place] [address], [address] [place], [place] [id number] FAX: CHIEF COMPLAINT: Chief Complaint Patient presents with Follow-up, Office Visit injection HISTORY OF PRESENT ILLNESS: Jojo Gracia is a 74 y.o. female being seen today in follow-up for complaints of low back pain. The patient has been seen for this complaint in the past. Previously it was recommen ded that she have a L4/5 ILESI left of mid with good relief. She reports that the treatment was effective x 3 months. Patient reports approximately 75% relief since receiving injectio n on date: 11/12/18. Patient reports that since injection they have improved functionality. P atient reports that since injection they have decreased use of medication for pain/radicular symptoms. Overall the patient reports that the symptoms are worsening. She rates the pain as moderat e. She describes the pain as aching, sharp, stabbing, tingling or radiating to bilateral g roins and thighs. Her symptoms worsen with standing, walking, bending. Her symptoms improv e with nothing. The patient does not describe numbness of the leg(s). She does report we akness of the leg(s). She does have bowel and bladder dysfunction. She does not have sadd le anesthesia. Treatments for these complaints have included PT, injections, medications, chiropractic, T ENS unit. Patient's medications, allergies, past medical, surgical, social and family histories were reviewed and updated as appropriate. CURRENT MEDICATIONS: Current Outpatient Medications Medication Sig Dispense Refill cholecalciferol (CHOLECALCIFEROL) 1000 units TABS Take 2,000 Units by mouth Daily. DHEA 50 MG TABS Take 50 mg by mouth Daily. hydroCHLOROthiazide (MICROZIDE) 12.5 MG capsule Take 1 capsule by mouth Daily. 4 ketorolac (TORADOL) 10 MG tablet TAKE 1 TABLET BY MOUTH 3 TIMES DAILY NEEDED FOR TAWNY N 0 lisinopril (PRINIVIL, ZESTRIL) 20 mg tablet Take 20 mg by mouth Daily. lisinopril (PRINIVIL,ZESTRIL) 40 MG tablet Take 40 mg by mouth Daily. metoprolol succinate (TOPROL-XL) 25 mg 24 hr tablet Take 25 mg by mouth Daily. metoprolol succinate (TOPROL-XL) 25 mg 24 hr tablet TK 1 T PO QD 4 metoprolol succinate (TOPROL-XL) 50 mg 24 hr tablet TK 1 T PO QD 4 nitrofurantoin (MACROBID) 100 mg capsule 0 sulfamethoxazole-trimethoprim (BACTRIM DS) 800-160 mg per tablet TK 1 T PO BID FOR 14 D AYS 0 thyroid (ARMOUR THYROID) 120 MG tablet Take by mouth. thyroid (ARMOUR) 120 MG tablet Take by mouth Daily. traMADol (ULTRAM) 50 mg tablet take 1 tablet by mouth every 8 hours if needed for pain 0 No current facility-administered medications for this visit. ALLERGIES: Allergies Allergen Reactions Meperidine Anaphylaxis Morphine Anaphylaxis Codeine Other (See Comments) Reaction not specified in outside medical records Morphine And Related Nausea And Vomiting and Other (See Comments) Blindness and deaf one sided. Muscle Relaxants [Baclofen] Other (See Comments) Reaction not specified in outside medical records Muscle Relaxants [Carisoprodol] Other (See Comments) Reaction not specified in outside medical records Muscle Relaxants [Cyclobenzaprine] Other (See Comments) Reaction not specified in outside medical records Muscle Relaxants [Methocarbamol] Other (See Comments) Reaction not specified in outside medical records Muscle Relaxants [Tizanidine] Other (See Comments) Reaction not specified in outside medical records Narcotic Pain Medications [Morphine And Related] Other (See Comments) Reaction not specified in outside medical records Review of Systems Constitutional: Negative for chills, diaphoresis, fever, malaise/fatigue and weight loss. Musculoskeletal: Positive for back pain. Negative for falls, joint pain, myalgias and neck pain. Neurological: Positive for tingling and sensory change. Negative for dizziness, tremors, sp eech change, focal weakness, seizures, loss of consciousness, weakness and headaches. Social History Socioeconomic History Marital status: Spouse name: Not on file Number of children: Not on file Years of education: Not on file Highest education level: Not on file Social Needs Financial resource strain: Not on file Food insecurity - worry: Not on file Food insecurity - inability: Not on file Transportation needs - medical: Not on file Transportation needs - non-medical: Not on file Occupational History Not on file Tobacco Use Smoking status: Never Smoker Smokeless tobacco: Never Used Substance and Sexual Activity Alcohol use: No Drug use: No Sexual activity: Never Other Topics Concern Not on file Social History Narrative Not on file PHYSICAL EXAMINATION: Height 1.613 m (5' 3.5"), weight 82.6 kg (182 lb 1.6 oz). Body mass index is 31.75 kg/m. GENERAL: The patient is well developed and well nourished. She does not appear uncomfortab le when seated. HEENT: Normocephalic and atraumatic. Normal sclerae without icterus. NECK (ANTERIOR): There is no apparent cervical lymphadenopathy or thyromegaly. PULMONARY: The patient is in no acute respiratory distress with unlabored respirations. CARDIOVASCULAR: There is not lower extremity edema. ABDOMEN: Non-distended. SKIN: Limited skin exam shows no significant rashes or lesions. NEUROLOGIC: The patient is awake, alert, and oriented. She follows simple and complex commands. Her speech is fluent. She comprehends speech well. She has no apparent deficits with short or moth exterminator memory. The cranial nerves appear grossly intact. Sensory exam does show diminished sensation to light touch in the lef leg(s). REFLEX: RIGHT LEFT PATELLAR 0 0 ACHILLES 2+ 2+ MUSCULOSKELETAL : Straight leg raise and slump-sit are negative. Zia's maneuver and impingement testing were negative for any groin pain. There was no tenderness to palpation over the greater trochanters or sacral sulci. The patient localized the majority of the pain to the L4/5 region. Lumbar facet loading was negative. Strength testing showed 5/5 strength throughout the lower extremities. The patient was able to heel and toe walk without difficulty. There was no redness, effusion, warmth or joint line tenderness in the knees or ankles. RADIOGRAPHIC REVIEW: The patient's imaging was reviewed in detail with the patient today during the visit. The Lumbar MRI from 03/18/2018 shows L3-4, 4 millimeter anterolisthesis with disc bulge, facet hy pertrophy and facet subluxation causing moderately severe central canal stenosis. L4-5 disc height loss with broad-based disc bulge causing mild bilateral neural foraminal narrowing a nd likely subluxed facet joints. Lumbar x-rays show spondylolisthesis at L3 over L4 on flexion extension views. This is lar trudy stable on flexion and extension. ASSESSMENT: Encounter Diagnosis Name Primary? Lumbar radiculopathy Yes PLAN: 1) Today we discussed the patient's differential diagnosis with the likely primary issue be ing LUMBAR RADICULOPATHY. Patient's description of symptoms, physical exam, and imaging sugg est this diagnosis at this time. 2) I [...] PT (multiple sessions over the years) and healthcare science specialist. Unfortunately Jojo Gracia continues to have significant discomfort. It appears to me that the pain is primarily coming from L3/4 central canal stenosis. I did feel that Jojo Gracia would be a good candidate for interventional procedures a nd I offered a bilateral L4/5 TFESI to be done. I did feel that Jojo Gracia would be a good candidate for medication: prednisone and benadryl for next injection. She reports she had a poor reaction to last injection procedure (headache, nausea). 5) Patient will follow up with me 3 weeks post injection/as needed to discuss any imaging a nd/or progress with today's treatment plan. I spent 30 minutes in visit with Jojo Gracia today with the majority of time spent couns elling the patient on her diagnosis, options for her care, and coordinating her care. ELECTRONICALLY SIGNED BY: Steve Vogel PA-C, 04/23/2019 13:07 documented in this en counter Plan of Treatment +--------+---------+ + + + | Date | Type | Specialty | Care Team | Description | +--------+---------+ + + + | 06/27/ | Office | Nephrology | Pillo Condon MD | | | 2019 | Visit | | [address] [facility] | | | | | | [address] [place] | | | | | | [address] | | | | | | | | +--------+---------+ + + + documented as of this encounter Results [place] JANKI Lumbar Transforaminal (05/25/2019 4:42 PM PDT) + + | Specimen | + + | | + + + + -+ | Narrative | Performed At | + + -+ | 05/25/2019 | [facility] | | Bilateral Transforaminal Epidural Steroid Injections Diagnosis: Lumbar | | | radiculopathy ICD-10 Code M54.16 Jojo Gracia presents to the | | | fluoroscopy suite for fluoroscopically-guided bilateral L4-L5 | | | transforaminal epidural steroid injections as part of conservative | | | management for chronic pain with lumbar radiculopathy and degenerative | | | disc disease. After informed consent was obtained, the patient lay in | | | the prone position on the fluoroscopy table. The areas were | | | identified under fluoroscopic guidance. The areas were prepped and | | | draped in sterile fashion. A 25-gauge, 1.5-inch needle was inserted | | | into each region and approximately 3 mL of buffered 1% lidocaine was | | | infused. Then, a 22-gauge spinal needle was inserted into the | | | posterior superior transforaminal space bilaterally and advanced into | | | the epidural space under fluoroscopic guidance. Confirmation into the | | | epidural space was obtained with infusion of approximately 1 mL of | | | Omnipaque contrast which showed epidural flow as well as nerve sheath | | | flow. Then, a combination of 2 mL of 1% lidocaine and 1.5 mL of 10 | | | mg/mL dexamethasone was infused, divided between the two sides. The | | | patient tolerated the procedure well without complications. Pre- and | | | post-procedure blood pressures were stable. The patient was given | | | verbal as well as written follow-up instructions. Prior to the start | | | of the procedure, the following were performed and/or verified, | | | including correct patient identity, correct site/side marked and | | | visible, agreement on the procedure to be done, correct patient | | | positioning and an accurate procedure consent form. Any safety | | | precautions based on clinical history and/or medication use have been | | | addressed. I personally performed the procedure above. Estimated blood | | | loss: MinimalComplications: NoneFindings: As expectedAnesthesia: | | | Local 1% Lidocaine | | |visible, agreement on the procedure to be done, correct patient | | |positioning and an accurate procedure consent form. Any safety precautions | | |based on clinical history and/or medication use have been addressed. I | | |personally performed the procedure above. | | | | | |Estimated blood loss: Minimal | | |Complications: None | | |Findings: As expected | | |Anesthesia: Local 1% Lidocaine | | | | | + + -+ + +---------+ + + | Performing | Address | City/State/[place] | Phone Number | | Organization | [...]
--- OUTSIDE RECORDS SUMMARY | ~2020-01-09 | XMS | Encounter Summary ---
Demographics + + + | Address | [address] | | | [place] [address] | + + + | Home Phone | | + + + | Preferred Language | Unknown | + + + | Marital Status | | + + + | Jewish Affiliation | 1013 | + + + | Race | Unknown | + + + | Ethnic Group | Unknown | + + + Author + + + | Author | [facility] | | | and [place] | + + + | Organization | [facility] | | [...] Team Providers + +------+ + | Care Electrical Manufacturing Technician Name | Role | Phone | + +------+ + PCP | Unavailable | + +------+ + Encounter Details +--------+ + + + + | Date | Type | Department | Care Team | Description | +--------+ + + + + | 12/04/ | Hospital | [facility] | | | | 1994 | Encounter | [facility] | | | | | | CENTER [address] | | | | | | [place] | | | | | | [address] | | | | | | [phone] | | | +--------+ + + + [...] 2020 | Visit | | [address] [facility] | | | | | | [address] [facility] | | | | | | [address] | | | | | | | | +--------+---------+ + + + documented as of this encounter Visit Diagnoses Not on filedocumented in this encounter"
--- OUTSIDE RECORDS SUMMARY | ~2020-01-09 | XMS | Encounter Summary ---
Demographics + + + | Address | [address] | | | [place] [address] | + + + | Home Phone | | + + + | Preferred Language | Unknown | + + + | Marital Status | | + + + | Yazidi Affiliation | 1013 | + + + | Race | Unknown | + + + | Ethnic Group | Unknown | + + + Author + + + | Author | [facility] | | | and [place] | + + + | Organization | [facility] | | [...] Team Providers + +------+ + | Care Tapping Machine Operator Automatic Name | Role | Phone | + +------+ + | Thi Hutton MD | PCP | | + +------+ + Encounter Details +--------+ + + + + | Date | Type | Department | Care Team | Description | +--------+ + + + + | 08/20/ | Orders Only | [facility] | Pillo Condon MD | Hypertension, | | 2020 | | [place]PHROLOGY [place] | [address] [place] | unspecified type | | | | [address] [place] | [address] [facility] [place] | (Primary Dx); | | | | [address] [place], [place] | [address] | Polycystic kidney | | | | [address] | | | | | | [phone] | | | +--------+ + + + [...] | | | | | | [address] [facility] | | | | | | [address] | | | | | | | | +--------+---------+ + + + + +------+--------+ + + | Name | Type | Priori | Associated Diagnoses | Order Schedule | | | | ty | | | + +------+--------+ + + | Basic Metabolic | Lab | Routin | Hypertension, | Expected: | | Panel | | e | unspecified type | 09/21/2019, Expires: | | | | | Polycystic kidney | 08/20/2020 | + +------+--------+ + + | Protein/Creatinine | Lab | Routin | Hypertension, | Expected: | | Ratio, Urine | | e | unspecified type | 09/21/2019, Expires: | | | | | Polycystic kidney | 08/20/2020 | + +------+--------+ + + | Uric Acid | Lab | Routin | Hypertension, | Expected: | | | | e | unspecified type | 09/21/2019, Expires: | | | | | Polycystic kidney | 08/20/2020 | + +------+--------+ + + | Urinalysis With | Lab | Routin | Hypertension, | Expected: | | Microscopic | | e | unspecified type | 09/21/2019, Expires: | | | | | Polycystic kidney | 08/20/2020 | + +------+--------+ + + | CBC with | Lab | Routin | Hypertension, | Expected: | | Differential | | e | unspecified type | 09/21/2019, Expires: | | | | | Polycystic kidney | 08/20/2020 | + +------+--------+ + + documented as of this encounter Visit Diagnoses + + | Diagnosis | + + | Hypertension, unspecified type - Primary | + + | Polycystic kidney Polycystic kidney, unspecified type | + + documented in this encounter"
--- OUTSIDE RECORDS SUMMARY | ~2020-01-09 | XMS | Encounter Summary ---
Demographics + + + | Address | [address] | | | [place] [address] | + + + | Home Phone | | + + + | Preferred Language | Unknown | + + + | Marital Status | | + + + | Worship Affiliation | 1013 | + + + | Race | Unknown | + + + | Ethnic Group | Unknown | + + + Author + + + | Author | [facility] | | | and [place] | + + + | Organization | [facility] | | [...] Team Providers + +------+ + | Care Community Service Aide Name | Role | Phone | + +------+ + | Thi Hutton MD | PCP | | + +------+ + Encounter Details +--------+ + + + + | Date | Type | Department | Care Team | Description | +--------+ + + + + | 05/08/ | [facility] | [facility] | [place] Jose MD | Back pain, | | 2018 | Encounter | MED CTR XRAY [address] | [address] | unspecified back | | | | [place] | [place] [address] | location, | | | | [place] [address] | [phone] | unspecified back | | | | [phone] | | pain laterality, | | | | | | unspecified | | | | | | chronicity | +--------+ + + + + Social [...] | 12 | 04/18/20 | | | ([place], [place]) | mouth Daily. | | | 18 [...] 2019 | Visit | | [address] [facility] | | | | | | [address] [place] | | | | | | [address] | | | | | | | | +--------+---------+ + + + documented as of this encounter Procedures + +--------+ + + + | Procedure Name | Priori | Date/Time | Associated Diagnosis | Comments | | | ty | | | | + +--------+ + + + | XR LUMBAR SPINE 2 [place] | Routin | 05/08/2018 | Back pain, | Results for this | | 3 VW | e | 11:55 AM | unspecified back | procedure are in the | | | | PDT | location, | results section. | | | | | unspecified back | | | | | | pain laterality, | | | | | | unspecified | | | | | | chronicity | | + +--------+ + + + documented in this encounter Results XR Lumbar Spine 2 or 3 Vw (05/08/2018 11:55 AM PDT) + + | Specimen | + + | | + + + + + | Narrative | Performed At | + + + | XR LUMBAR SPINE 2 OR 3 VW 05/08/2018 11:55 AM HISTORY: Back pain. | [facility] | | COMPARISON: [...] are anterior to the L3-4 disc space. | | | IMPRESSION - Degenerative changes, no instability. Dictated and | | | Signed by: Paolo [place] MD Electronically signed: 05/08/2018 12:24 | | | PM | | + + + + + | Procedure Note | + + | Manav, Rad Results In - 05/08/2018 12:28 PM PDT XR LUMBAR SPINE 2 OR 3 VW 05/08/2018 | | 11:55 AMHISTORY: Back pain.COMPARISON: Multiple priors.FINDINGS:Mild spondylosis is | | [...] are anterior to | | the L3-4 discspace.IMPRESSION -Degenerative changes, no instability.Dictated and Signed | | by: Paolo [place] MD Electronically signed: 05/08/2018 12:24 PM | |Vertebral body height are preserved with no evidence for compression fractures. | |Mild disc narrowing is at L3-4. Severe disc narrowing is at L4-5. Multilevel | |facet sclerosis and hypertrophy are present. Visualized ribs and pelvic osseous | |structures show no acute findings. Calcifications are anterior to the L3-4 disc | |space. | | | |IMPRESSION - | |Degenerative changes, no instability. | | | |Dictated and Signed by: Paolo [place] MD | | Electronically signed: 05/08/2018 12:24 PM | + + + +---------+ + + | Performing | Address | City/State/Zipcode | Phone Number | | Organization | | | | + +---------+ + + | [facility] | | | | + +---------+ + + documented in this encounter Visit Diagnoses + + | Diagnosis | + + | Back pain, unspecified back location, unspecified back pain laterality, unspecified | | chronicity | + + documented in this encounter"
--- OUTSIDE RECORDS SUMMARY | ~2020-01-09 | XMS | Encounter Summary ---
Demographics + + + | Address | [address] | | | [place] [address] | + + + | Home Phone | | + + + | Preferred Language | Unknown | + + + | Marital Status | | + + + | Druze Affiliation | 1013 | + + + | Race | Unknown | + + + | Ethnic Group | Unknown | + + + Author + + + | Author | [facility] | | | and [place] | + + + | Organization | [facility] | | | and [...] Team Providers + +------+ + | Care Cable Tender Name | Role | Phone | + +------+ + | Thi Hutton MD | PCP | | + +------+ + Encounter Details +--------+ + + + + | Date | Type | Department | Care Team | Description | +--------+ + + + + | 05/08/ | [facility] | [facility] | [place] Jose MD | Back pain, | | 2018 | Encounter | MED CTR XRAY [address] | [address] | unspecified back | | | | [place] | [place] [address] | location, | | | | [place] [address] | [phone] | unspecified back | | | | [phone] | | pain laterality, | | | [...] 2019 | Visit | | [address] [facility] | | | | | | [address] [place] | | | | | | [address] | | | | | | | [...]
--- OUTSIDE RECORDS SUMMARY | ~2020-01-09 | XMS | Encounter Summary ---
Demographics + + + | Address | [address] | | | [place] [address] | + + + | Home Phone [...] Team Providers + +------+ + | Care Chain Maker Hand Name | Role | Phone | + [...] | Services | | Lumbar | TAMIE Wislon | Naun Madera DO | | | Required | | radiculopath | [address] | | | | | y Spinal | [address] | [address] [address] | | | | | stenosis of | [address] | [place], [place] | | | | | lumbar | [place], | [address] Phone: | | | | | region, | [place] [address] | [phone] | | | | | unspecified | Phone: | Fax: | | | | | whether | [phone] | [phone] | | | | | neurogenic | Fax: | | | | | | claudication | [phone] | | | | | | present [...] + + | 06/04/ | Telephone | [facility] | Steve Vogel, | Imaging; Back Pain | | 2019 | | PHYSIATRY [address] | PA-C [address] | | | | | [address] | [address] [place] | | | | | [place] | [place] [address] | | | | | [address] | [phone] | | | | | [phone] | | | +--------+ + + + [...] | Visit | | [address] [facility] | | | | | | [address] [place] | | | | | | [address] | | | | | | | [...]
--- OUTSIDE RECORDS SUMMARY | ~2020-01-09 | XMS | Encounter Summary ---
Demographics + + + | Address | [address] | | | [place] [address] | + + + | Home Phone | | + + + | Preferred Language | Unknown | + + + | Marital Status | | + + + | Jainism Affiliation | 1013 | + + + [...] Team Providers + +------+ + | Care Soft Shoe Dancer Name | Role | Phone | + +------+ + | Thi Hutton MD | PCP | | + +------+ + Encounter Details +--------+ + + + + | Date | Type | Department | Care Team | Description | +--------+ + + + + | 04/23/ | Orders Only | [facility] [place] | [place] MD | Back pain, | | 2018 | | NEUROSURGERY [address] | [address] | unspecified back | | | | [address] | [place] [address] | location, | | | | [place] | [phone] | unspecified back | | | | [address] | | pain laterality, | | | | [phone] | | unspecified | | | | | | chronicity (Primary | | | | | | Dx) | +--------+ + + + + Social [...] 2019 | Visit | | [address] [facility] [address] | | | | | | [address] [place], [place] | | | | | | [address] | | | | | | | | +--------+---------+ + + + documented as of this encounter Results XR Lumbar Spine 2 [...] back pain laterality, unspecified | | chronicity - Primary | + + documented in this encounter"
--- OUTSIDE RECORDS SUMMARY | ~2020-01-09 | XMS | Encounter Summary ---
Demographics + + + | Address | [address] | | | [place] [address] | + + + | Home Phone | | + + + | Preferred Language | Unknown | + + + | Marital Status | | + + + | Confucianism Affiliation | 1013 | + + + | Race | Unknown | + + + | Ethnic Group | Unknown | + + + Author + + + | Author | [facility] | | | and [place] | + + + | Organization | [facility] | | | [...] Team Providers + +------+ + | Care Farmworker Dairy Name | Role | Phone | + +------+ + | Thi Hutton MD | PCP | | + +------+ + Reason for Visit +--------+ + | Reason | Comments | +--------+ + | Other | Medical Hist questionnaire | +--------+ + Encounter Details +--------+ + + + + | Date | Type | Department | Care Team | Description | +--------+ + + + + | 12/23/ | Documentati | [facility] | Yang, | Other (Medical Hist | | 2020 | on | NEPHROLOGY [place] | [facility] | questionnaire) | | | | [address] | Field Hockey And Lacrosse Coach | | | | | [address] [facility] [place] | | | | | | [address] | | | | | | [phone] | | | +--------+ + + + [...] 2020 | Visit | | [facility] [address] [facility] | | | | | | [address] [place] | | | | | | [address] | | | | | | (Fax) | | +--------+---------+ + + + documented as of this encounter Visit Diagnoses Not on filedocumented in this encounter"
--- OUTSIDE RECORDS SUMMARY | ~2020-01-09 | XMS | Encounter Summary ---
Demographics + + + | Address | [address] | | | [place] [address] | + + + | Home Phone | | + + + | Preferred Language | Unknown | + + + | Marital Status | | + + + | Denominational Affiliation | 1013 | + + + | Race | Unknown | + + + | Ethnic Group | Unknown | + + + Author + + + | Author | [facility] | | | and [place] | + + + | Organization | [facility] | | | and [place] | + + + | Address | Unknown | + + + | Phone | Unavailable | + + + Support + + +---------+ + | Name | Relationship | Address | Phone | + + +---------+ + | Sue Grpuo | ECON | Unknown | | + + +---------+ + Care Team Providers + +------+ + | Care Barber Stylist Name | Role | Phone | + +------+ + | Thi Hutton MD | PCP | | + +------+ + Encounter Details +--------+ + + + + | Date | Type | Department | Care Team | Description | +--------+ + + + + | 08/20/ | Documentati | [facility] | Trey, | | | 2019 | on | NEPHROLOGY [place] | Bessie Her | | | | | [address] [place] | Diet Kitchen Cook | | | | | [address] [place] | | | | | | [address] | | | | | | [phone] | | | +--------+ + + + [...] 2020 | Visit | | [address] [facility] | | | | | | [address] [place], [place] | | | | | | [address] | | | | | | | [...] | + +--------+ + + + | TSH | Routin | 01/08/2019 | | Results for this | | | e | | | procedure are in the | | | | | | results section. | + +--------+ + + + | COMPREHENSIVE | Routin | 01/08/2019 | | Results for this | | METABOLIC PANEL | e | | | procedure [...] + + + + | Urine | Positive | | | | | Culture, | [...] + +--------+ + | Escherichia coli | Ceftriaxone | | Sensitive | + + +--------+ [...] +---------+ + + + | BUN | 9 | 9 - 10 mg/dL | | | + +---------+ + [...] + + | Blood | + + TSH (01/08/2019) + +-------+ + + + | Component | Value | Ref Range | Performed | Pathologist | | | | | At | Signature | + +-------+ + + + | TSH, | 0.641 | 0.270 - 4.20 | | | | External | | | | | + +-------+ + + + + + | Specimen | + + | Blood | + + Comprehensive Metabolic Panel (01/08/2019) + +---------+ + + + | Component | Value | Ref Range | Performed | Pathologist | | | | | At | Signature | + +---------+ + + + | Na | 136 | 132 - 143 | | | | | | mmol/L | | | + +---------+ + + + | K | 4.3 | 3.6 - 5.1 | | | | | | mmol/L | | | + +---------+ + + + | Cl | 105 | 95 - 112 mmol/L | | | + +---------+ + + + | CO2 | 25 | 19 - 31 mmol/L | | | + +---------+ + + + | Anion Gap | 10 | 7 - 21 mmol/L | | | + +---------+ + + + | Glucose | 107 (A) | 70 - 100 mg/dL | | | + +---------+ + + + | BUN | 15 | 6 - 23 mg/dL | | | + +---------+ + + + | Creatinine | 0.80 | 0.70 - 1.18 | | | | | | mg/dL | | | + +---------+ + + + | Estimated | 70.0 | 60.0 - 140.0 | | | | GFR | | mL/min/1.73m2 | | | + +---------+ + + + | BUN/Creatin | 18.8 | 6.0 - 28.6 | | | | ine Ratio | | | | | + +---------+ + + + | Calcium | 9.5 | 8.5 - 10.3 | | | + +---------+ + + + | AST | 18 | 13 - 39 U/L | | | + +---------+ + + + | ALT | 16 | 7 - 52 U/L | | | + +---------+ + + + | ALP, | 42 | 31 - 130 | | | | External | | | | | + +---------+ + + + | BILIRUBIN, | 0.6 | 0.0 - 1.2 | | | | TOTAL | | | | | + +---------+ + + + | Protein, | 7.2 | 6.0 - 8.3 | | | | Total | | | | | + +---------+ + + + | Albumin | 4.2 | 3.5 - 5.0 g/dL | | | + +---------+ + + + | Globulin | 3.0 | 1.8 - 3.5 | | | + +---------+ + + + | Albumin/Chani | 1.4 | 1.1 - 2.4 | | | | bulin Ratio | | | | | + +---------+ + + + + + | Specimen | + + | Blood | + + documented in this encounter Visit Diagnoses Not on filedocumented in this encounter"
--- OUTSIDE RECORDS SUMMARY | ~2020-01-09 | XMS | Encounter Summary ---
Demographics + + + | Address | [address] | | | [place] [address] | + + + | Home Phone | | + + + | Preferred Language | Unknown | + + + | Marital Status | | + + + | Hoahaoism Affiliation | 1013 | + + + [...] Team Providers + +------+ + | Care Primer Assembler Name | Role | Phone | [...] + + | 11/03/ | Office | [facility] [place] | Steve Vogel, | Lumbar radiculopathy | | 2019 | Visit | PHYSIATRY [address] | PA-C [address] | (Primary Dx) | | | | [address] | [address] [place] | | | | | [place], [place] | [place] [address] | | | | | [address] | [phone] | | | | | [phone] | | | +--------+---------+ + + + [...] or the spinal canal to narrow (called epifaino nosis) and press against a nerve. Date Last Reviewed: 10/17/201719999829-1391 [employer]. [address] [place] [address], [place] [address]. All [facility] ts reserved. This information is not intended as a substitute for professional medical care. Always follow your healthcare professional's instructions. documented in this encounter Progress Notes Steve Vogel PA-C - 11/03/2018 9:20 AM PDTFormatting of this note might be different fro m the original. [address] [facility], [address] [place] [address] FAX: PHYSICAL MEDICINE AND REHABILITATION H&P CHIEF [...] has no apparent deficits with short or assisted memory. She has appropriate fund of knowledge [...] sessions over the years) and critical care specialist. Unfortunately Jojo Gracia continues to have [...] 2019 | Visit | | [address] [facility] | | | | | | [address] [place], [place] | | | | | | [address] | | | | | | | [...]
--- OUTSIDE RECORDS SUMMARY | ~2020-01-09 | XMS | Encounter Summary ---
Demographics + + + | Address | [address] | | | [place] [address] | + + + | Home Phone [...] Team Providers + +------+ + | Care Nursing Surgical Services Director Name | Role | Phone | + [...] | | | [address] [place] | [place] [address] | | | | | [place] [address] | | | | | | [phone] | | | +--------+ + + + [...] 2020 | Visit | | [address] [facility] | | | | | | [address] [place], [place] | | | | | | [address] | | | | | | | | +--------+---------+ + + + documented as of this encounter Procedures + +--------+ + + + | Procedure Name | Priori | Date/Time | Associated Diagnosis | Comments | | | ty | | | | + +--------+ + + + | XR LUMBAR SPINE 4 + | Routin | 03/10/2018 | | Results for this | | VW | e | 11:40 AM | | procedure are in the | | | | PDT | | results section. | + +--------+ + + + documented in this encounter Results XR Lumbar Spine 4 + Vw (03/10/2018 11:40 AM PDT) + + | Specimen | [...]
--- OUTSIDE RECORDS SUMMARY | ~2020-01-09 | XMS | Encounter Summary ---
Demographics + + + | Address | [address] | | | [place] [address] | + + + | Home Phone | | + + + | Preferred Language | Unknown | + + + | Marital Status | | + + + | Zoroastrianism Affiliation | 1013 | + + + | Race | Unknown | + + + | Ethnic Group | Unknown | + + + Author + + + | Author | [facility] | | | and [place] | + + + | Organization | [facility] | | [...] Team Providers + +------+ + | Care Curriculum And Assessment Director Name | Role | Phone | [...] | | | [address] [place] | [place] [address] | | | | | [place] [address] | | | | | | [phone] | | | +--------+ + + + [...] 2020 | Visit | | [address] [facility] | | | | | | [address] [place], [place] | | | | | | [address] | | | | | | | [...]
--- OUTSIDE RECORDS SUMMARY | ~2020-01-09 | XMS | Encounter Summary ---
Demographics + + + | Address | [address] | | | [place] [address] | + + + | Home Phone | | + + + | Preferred Language | Unknown | + + + | Marital Status | | + + + | Mandaen Affiliation | 1013 | + + + | Race | Unknown | + + + | Ethnic Group | Unknown | + + + Author + + + | Author | [facility] | | | and [place] | + + + | Organization | [facility] | | | [...] Team Providers + +------+ + | Care Box Car Washer Name | Role | Phone | + +------+ + | Thi Hutton MD | PCP | | + +------+ + Reason for Visit + + + | Reason | Comments | + + + | Schedule Testing | | + + + Encounter Details +--------+ + + + + | Date | Type | Department | Care Team | Description | +--------+ + + + + | 07/02/ | Telephone | [facility] | Sridhar Tavarez | Schedule Testing | | 2019 | | CARDIOLOGY [place] | MD [address] | | | | | [address] | [address] | | | | | [place], [place] | [place] [address] | | | | | [address] | [phone] | | | | | [phone] | | | +--------+ + + + [...] 2020 | Visit | | [address] | | | | | | [address] [place], [place] | | | | | | [address] | | | | | | | | +--------+---------+ + + + documented as of this encounter Visit Diagnoses Not on filedocumented in this encounter"
--- OUTSIDE RECORDS SUMMARY | ~2020-01-09 | XMS | Encounter Summary ---
Demographics + + + | Address | [address] | | | [place] [address] | + + + | Home Phone [...] Team Providers + +------+ + | Care Pan Devulcanizer Helper Name | Role | Phone | + [...] [address] | | | | | [place] [facility], [place] | [place] [address] | | | | | [address] | [phone] | | | | | [phone] | | | +--------+ + + + [...] 2019 | Visit | | [address] [facility] | | | | | | [address] [place] | | | | | | [address] | | | | | | | | +--------+---------+ + + + documented as of this encounter Visit Diagnoses Not on filedocumented in this encounter"
--- OUTSIDE RECORDS SUMMARY | ~2020-01-09 | XMS | Clinical Summary ---
Demographics + + + | Address | [address] | | | [place] [address] | + + + | Home Phone | | + + + | Preferred Language | Unknown | + + + | Marital Status | | + + + | Voodoo Affiliation | 1077 | + + + | Race | Unknown | + + + | Ethnic Group | Unknown | + + + Author + + + | Author | [facility] (Historical as of | | | 04-04-19) | + + + | Organization | [facility] (Historical as of | | | 04-04-19) [...] Team Providers + +------+ + | Care Bleach Range Operator Name | Role | Phone | [...] | | | | Activ | | I-Vmansnhomqjh-Erszu | daily. | | | | | [...] | PT-/rehab- she want to go to e|tab and start exercise and | | swimming.ut 10-15 yrs back with severe LV systolic dysfunction | | and LV function improved with improvement of thyroid functions- | | symptoms could be the sequelae from prior CHFPossibly also form | | weight gainBut she has multiple risk factors for CAD- HTN, age, | | CVAStress MPI no urziialv1X echo normal LV function, no | | [...] +------+-------+ + | MEDICARE | MEDICA | [id number] | | | [address] | | | RE | | | | [place] [address] | | | IP-OP | | | | | + +--------+ +------+-------+ + | COMMERCIAL OTHER | TRANSA | [id number] | | | | | | MERICA [...] | radha | | | 9089 | [address] | + +--------+ +--------+ + +
--- OUTSIDE RECORDS SUMMARY | ~2020-01-09 | XMS | Encounter Summary ---
Demographics + + + | Address | [address] | | | [place] [address] | + + + | Home Phone [...] Team Providers + +------+ + | Care Public Information Officer Name | Role | Phone | + [...] + + | 12/23/ | Documentati | [facility] | Yang, | Other (Medical Hist | | 2020 | on | NEPHROLOGY [place] | [facility] [facility] | questionnaire) | | | | [address] | Network Internship | | | | | [address] [facility] [place] | | | | | | [address] | | | | | | [phone] | | | +--------+ + + + [...] 06/27/ | Office | Nephrology | Pillo oCndon MD | | | 2020 | Visit | | [address] [facility] | | | | | | [address] [place] | | | | | | [address] | | | | | | (Fax) | | +--------+---------+ + + + documented as of this encounter Visit Diagnoses Not on filedocumented in this encounter"
--- OUTSIDE RECORDS SUMMARY | ~2020-01-09 | XMS | Encounter Summary ---
Demographics + + + | Address | [address] | | | [place] [address] | + + + | Home Phone | | + + + | Preferred Language | Unknown | + + + | Marital Status | | + + + | Anabaptism Affiliation | 1013 | + + + | Race | Unknown | + + + | Ethnic Group | Unknown | + + + Author + + + | Author | [facility] | | | and [place] | + + + | Organization | [facility] | | | [...] Providers + +------+ + | Care Director Of Community Education Name | Role | Phone | + +------+ + | Thi Hutton MD | PCP | | + +------+ + Reason for Visit +--------+ + | Reason | Comments | +--------+ + | Other | Abdomen pelvis CT 04/27/19 | +--------+ + Encounter Details +--------+ + + + + | Date | Type | Department | Care Team | Description | +--------+ + + + + | 12/23/ | Documentati | [facility] | Yang, | Other (Abdomen | | 2019 | on | NEPHROLOGY [place] | Bessie Her | pelvis CT 04/27/19) | | | | [address] | Addiction Nurse | | | | | [address] [place] | | | | | | [address] | | | | | | [phone] | | | +--------+ + + + [...] 2020 | Visit | | [address] [facility] | | | | | | [address] [place] | | | | | | [address] | | | | | | | | +--------+---------+ + + + documented as of this encounter Visit Diagnoses Not on filedocumented in this encounter"
--- OUTSIDE RECORDS SUMMARY | ~2020-01-09 | XMS | Encounter Summary ---
Demographics + + + | Address | [address] | | | [place] [address] | + + + | Home Phone | | + + + | Preferred Language | Unknown | + + + | Marital Status | | + + + | Sabianism Affiliation | 1013 | + + + [...] Team Providers + +------+ + | Care Metal Filer Name | Role | Phone | + [...] | [address] | [place] [facility] | | | | | [place], [place] | [address] [place] | | | | | [address] | [address] | | | | | [phone] | | | +--------+ + + + [...] | 06/27/ | Office | Nephrology | Pilol Condon MD | | | 2019 | Visit | | [address] [facility] | | | | | | [address] [place] | | | | | | [address] | | | | | | | | +--------+---------+ + + + documented as of this encounter Visit Diagnoses Not on filedocumented in this encounter"
--- OUTSIDE RECORDS SUMMARY | ~2020-01-09 | XMS | Encounter Summary ---
Demographics + + + | Address | [address] | | | [place] [address] | + + + | Home Phone | | + + + | Preferred Language | Unknown | + + + | Marital Status | | + + + | Sabianism Affiliation | 1013 | + + + | Race | Unknown | + + + | Ethnic Group | Unknown | + + + Author + + + | Author | [facility] | | | and [place] | + + + | Organization | [facility] | | | [...] Team Providers + +------+ + | Care Acetylene Cutter Name | Role | Phone | + [...] Lumbar | TAMIE Wilson | [address] | | | | | radiculopath | [address] | [place], | | | | | y Spinal | [address] | [place] | | | | | stenosis of | [address] | [address] | | | | | lumbar | [place], | Phone: | | | | | region, | [place] [address] | [phone] | | | | | unspecified | Phone: | Fax: | | | | | whether | [phone] | [phone] | | | | | neurogenic | Fax: | | | | | | claudication | [phone] | | | | | | present [...] Lumbar | TAMIE Wilson | [address] | | | | | radiculopath | [address] | [place], | | | | | y Spinal | [address] | [place] | | | | | stenosis of | [address] | [address] | | | | | lumbar | [place], | Phone: | | | | | region, | [place] [address] | [phone] | | | | | unspecified | Phone: | Fax: | | | | | whether | [phone] | [phone] | | | | | neurogenic | Fax: | | | | | | claudication | [phone] | | | | | | present [...] + + | 06/16/ | Hospital | [facility] | Steve Vogel, | Lumbar | | 2019 | Encounter | MED CTR MRI [address] | PA-C [address] | radiculopathy; | | | | [address] [place], | [address] [place] | Spinal stenosis of | | | | [place] [address] | [place] [address] | lumbar region, | | | | [phone] | [phone] | unspecified whether | | | | [...] 2020 | Visit | | [facility] [address] [facility] | | | | | | [address] [place] | | | | | | [address] | | | | | | | [...] | | and severe facet spondylosis causes tmns-vu-dbgeexcd central spinal | | | stenosis and [...] bulge and severe facet | | spondylosis iponylylox-cv-qkuunaip central spinal stenosis and mild bilateral | [...] bulge and severe facet spondylosis causes | |mieq-hj-jhmlsxsy central spinal stenosis and mild bilateral neuroforaminal [...]
--- OUTSIDE RECORDS SUMMARY | ~2020-01-09 | XMS | Encounter Summary ---
Demographics + + + | Address | [address] | | | [place] [address] | + + + | Home Phone | | + + + | Preferred Language | Unknown | + + + | Marital Status | | + + + | Synagogue Affiliation | 1013 | + + + [...] Team Providers + +------+ + | Care Yoker Machine Operator Name | Role | Phone [...] | [place], [place] | [place] [address] | | | | | [address] | [phone] | | | | | [phone] | | | +--------+ + + + [...] | | | | | | [address] [place], [place] | | | | | | [address] | | | | | | | | +--------+---------+ + + + documented as of this encounter Visit Diagnoses Not on filedocumented in this encounter"
--- OUTSIDE RECORDS SUMMARY | ~2020-01-09 | XMS | Encounter Summary ---
Demographics + + + | Address | [address] | | | [place] [address] | + + + | Home Phone | | + + + | Preferred Language | Unknown | + + + | Marital Status | | + + + | Confucianist Affiliation | 1013 | + + + [...] Team Providers + +------+ + | Care Tar Pot Worker Name | Role | Phone | + +------+ + PCP | Unavailable | + +------+ + Encounter Details +--------+ + + + + | Date | Type | Department | Care Team | Description | +--------+ + + + + | 01/24/ | Hospital | [facility] | Saulo Patino, | | | 1998 | Encounter | [facility] | MD [address] | | | | | GENERIC CONV DEPT | [place] [address] | | | | | [address] | [phone] | | | | | [place], [place] | | | | | | [address] | | | | | | [phone] | | | +--------+ + + + [...] 2020 | Visit | | [address] [facility] | | | | | | [address] [place], [place] | | | | | | [address] | | | | | | | | +--------+---------+ + + + documented as of this encounter Visit Diagnoses Not on filedocumented in this encounter"
--- OUTSIDE RECORDS SUMMARY | ~2020-01-09 | XMS | Encounter Summary ---
Demographics + + + | Address | [address] | | | [place] [address] | + + + | Home Phone | | + + + | Preferred Language | Unknown | + + + | Marital Status | | + + + | Mormonism Affiliation | 1013 | + + + | Race | Unknown | + + + | Ethnic Group | Unknown | + + + Author + + + | Author | [facility] | | | and [place] | + + + | Organization | [facility] | | | and [...] Team Providers + +------+ + | Care Ski Top Trimmer Name | Role | Phone | + +------+ + | Thi Hutton MD | PCP | | + +------+ + Encounter Details +--------+ + + + + | Date | Type | Department | Care Team | Description | +--------+ + + + + | 05/08/ | [facility] | [facility] | Receiver, Stefania | Lumbar radiculopathy | | 2018 | Encounter | MED CTR XRAY [address] | TAMIE Steinberg [address] | | | | | [place] | [facility] | | | | | [place] [address] | [address] [place] | | | | | [phone] | [address] | | | | | | | [...] 2019 | Visit | | [address] [facility] | | | | | | [address] [place] | | | | | | [address] | | | | | | | | +--------+---------+ + + + documented as of this encounter Procedures + +--------+ + + + | Procedure Name | Priori | Date/Time | Associated Diagnosis | Comments | | | ty | | | | + +--------+ + + + | XR THORACIC SPINE 4 | Routin | 05/08/2018 | Lumbar | Results for this | | + VW | e | 2:10 PM | radiculopathy | procedure are in the | | | | PDT | | results section. | + +--------+ + + + documented in this encounter Results XR Thoracic Spine 4 [...]
--- OUTSIDE RECORDS SUMMARY | ~2020-01-09 | XMS | Encounter Summary ---
Demographics + + + | Address | [address] | | | [place] [address] | + + + | Home Phone | | + + + | Preferred Language | Unknown | + + + | Marital Status | | + + + | Gnosticism Affiliation | 1013 | + + + [...] Team Providers + +------+ + | Care Carrier Associate Name | Role | Phone | + +------+ + | Thi Hutton MD | PCP | | + +------+ + Encounter Details +--------+ + + + + | Date | Type | Department | Care Team | Description | +--------+ + + + + | 03/28/ | Orders Only | [facility] | Sridhar Garcia | | | 2014 | | CARDIOLOGY CORI Billings MD [address] | | | | | [address] | [address] | | | | | [address] [facility], [place] | [place] [address] | | | | | [address] | [phone] | | | | | [phone] | | | +--------+ + + + [...] 2019 | Visit | | [address] [facility] | | | | | | [address] [facility], [place] | | | | | | [address] | | | | | | | | +--------+---------+ + + + documented as of this encounter Procedures + +--------+ + + + | Procedure Name | Priori | Date/Time | Associated Diagnosis | Comments | | | ty | | | | + +--------+ + + + | VAS CAROTID DUPLEX | Routin | 03/28/2015 | | Results for this | | BILATERAL | e | 10:35 AM | | procedure are in the | | | | PDT | | results section. | + +--------+ + + + documented in this encounter Results VAS Carotid Duplex Bilateral (03/28/2015 10:35 AM PDT) + + | Specimen | + + | | + + + + + | Impressions | Performed At | + + + | 1. Overall left ventricular systolic function is normal with, an EF | | | between 60 - 65 %. | | + + + + + + | Narrative | Performed At | + + + | Patient Name: JOJO PAIZ Date of : 1945 | | | Performing Physician: SRIDHAR GARCIA MD | | | | | | INDICATIONS dyspnea CONCLUSIONS 1. | | | Overall left ventricular systolic function is normal with, an EF | | | between 60 - 65 %. FINDINGS -------- ECG rhythm: Sinus rhythm | | | with irregular beats. Study: A 2-dimensional transthoracic | | | echocardiogram with m-mode, spectral and color flow Doppler was | | | perfomed. Study: This was a technically adequate study. Left | | | Ventricle: Overall left ventricular systolic function is normal with, | | | an EF between 60 - 65 %. Left Ventricle: The left ventricle cavity | | | size is normal. Left Ventricle: Left ventricular wall thickness is | | | normal. Left Ventricle: No regional wall motion abnormalities. Left | | | Ventricle: The diastolic filling pattern indicates impaired relaxation | | | consistent with mild dysfunction (Grade I). Right Ventricle: The | | | right ventricle is normal in size. Left Atrium: The left atrium is | | | moderately enlarged by volume. Right Atrium: The right atrium is | | | mildly enlarged. Aortic Valve: The aortic valve is trileaflet and | | | appears structurally normal. Aortic Valve: Trace amount of aortic | | | regurgitation. Aortic Valve: There is no evidence of aortic stenosis. | | | Mitral Valve: The mitral valve is normal. Mitral Valve: Mild mitral | | | regurgitation is present. Tricuspid Valve: The tricuspid valve | | | appears structurally normal. Tricuspid Valve: Trace to mild tricuspid | | | regurgitation present. Tricuspid Valve: There is no evidence of | | | pulmonary hypertension. Tricuspid Valve: The right ventricular | | | systolic pressure (pulmonary artery systolic pressure), as measured by | | | Doppler, is 32.02mmHg. Pulmonic Valve: The pulmonic valve is normal. | | | Pulmonic Valve: Trace pulmonic regurgitation. Pericardium: There | | | is no pericardial effusion. IVC/Hepatic Veins: The IVC is normal size | | | (1.5-2.5cm) and collapses >50% with sniff, consistent with central | | | venous pressures of 5-10mmHg. Aorta: The ascending aorta is dilated | | | measuring up to 3.9cm. Mass: No mass visualized Thrombus: No clot | | | visualized Thrombus: No vegetation visualized. Septum: No ASD | | | observed. Septum: No VSD observed. MEASUREMENTS | | | Ao asc: 3.92 cm IVC: 2.02 cm LA Major: 5.31 cm EDV(Teich): | | | 130.15 ml IVSd: 0.93 cm LVIDd: 5.21 cm LVPWd: 0.92 cm | | | LVOT Area: 4.77 cm2 LVOT Diam: 2.46 cm %FS: 32.86 % | | | EF(Teich): 60.95 % ESV(Teich): 50.81 ml LVIDs: 3.49 cm | | | SV(Teich): 79.33 ml RA Major: 5.02 cm RVIDd: 2.72 cm LVEF | | | MOD A2C: 62.23 % SV MOD A2C: 66.11 ml LVEF MOD A4C: 62.93 % | | | SV MOD A4C: 92.42 ml EF Biplane: 59.80 % LVEDV MOD BP: | | | 122.87 ml LVESV MOD BP: 49.38 ml LVEDV MOD A2C: 106.23 ml | | | LVLd A2C: 7.82 cm LVEDV MOD A4C: 146.85 ml LVLd A4C: 8.08 | | | cm LVESV MOD A2C: 40.12 ml LVLs A2C: 6.41 cm LVESV MOD A4C: | | | 54.42 ml LVLs A4C: 6.78 cm LAESV(A-L): 78.33 ml LAESV | | | Index (A-L): 40.79 ml/m2 LAAs A2C: 23.39 cm2 LAESV A-L A2C: | | | 83.86 ml LALs A2C: 5.53 cm LAAs A4C: 21.73 cm2 LAESV A-L | | | A4C: 72.78 ml LALs A4C: 5.50 cm Ao Diam: 3.70 cm LA Diam: | | | 4.78 cm LA/Ao: 1.28 AV maxP.59 mmHg AV meanP.18 | | | mmHg AV Vmax: 1.28 m/s AV Vmean: 0.82 m/s AV VTI: 25.38 | | | cm FLASH Vmax: 2.90 cm2 FLASH (VTI): 3.01 cm2 LVOT maxP.43 | | | mmHg LVOT meanP.16 mmHg LVSI Dopp: 39.92 ml/m2 LVSV | | | Dopp: 76.66 ml LVOT Vmax: 0.77 m/s LVOT Vmean: 0.49 m/s | | | LVOT VTI: 16.04 cm IVRT: 117.64 ms MV A Kurtis: 0.86 m/s MV | | | Dec [place]. Clair: 2.72 m/s2 MV DecT: 152.57 ms MV E Kurtis: 0.41 m/s | | | MV E/A Ratio: 0.48 MV PHT: 44.24 ms MVA By PHT: 4.97 cm2 | | | Septal e': 0.04 m/s Septal E/e': 8.67 Lateral e': 0.07 m/s | | | Lateral E/e': 5.35 RAP: 5 mmHg RVSP: 32.02 mmHg TR maxPG: | | | 27.02 mmHg TR Vmax: 2.59 m/s Global Supply Chain Vice President: MIKE | | | Authenticated by: SRIDHAR GARCIA MD Report Date/Time: -- | | | [id number] | | + + + + + | Procedure Note | + + | Manav, Rad Conversion - 04/10/2019 12:43 PM PDT Patient Name: Nusrat PAIZ | | : 1945 Performing Physician: SRIDHAR GARCIA | | INDICATIONS d | | ysbo CONCLUSIONS 1. Overall left ventricular systolic function is normal | | with, an EF between 60 - 65 %. FINDINGS--------ECG rhythm: Sinus rhythm with irregular | | beats.Study: A 2-dimensional transthoracic echocardiogram with m-mode, spectral and | | color flow Doppler was perfomed.Study: This was a technically adequate study.Left | | Ventricle: Overall left ventricular systolic function is normal with, an EF between 60 - | | 65 %.Left Ventricle: The left ventricle cavity size is normal.Left Ventricle: Left | | ventricular wall thickness is normal.Left Ventricle: No regional wall motion | | abnormalities.Left Ventricle: The diastolic filling pattern indicates impaired | | relaxation consistent with mild dysfunction (Grade I).Right Ventricle: The right | | ventricle is normal in size.Left Atrium: The left atrium is moderately enlarged by | | volume.Right Atrium: The right atrium is mildly enlarged.Aortic Valve: The aortic valve | | is trileaflet and appears structurally normal.Aortic Valve: Trace amount of aortic | | regurgitation.Aortic Valve: There is no evidence of aortic stenosis.Mitral Valve: The | | mitral valve is normal.Mitral Valve: Mild mitral regurgitation is present.Tricuspid | | Valve: The tricuspid valve appears structurally normal.Tricuspid Valve: Trace to mild | | tricuspid regurgitation present.Tricuspid Valve: There is no evidence of pulmonary | | hypertension.Tricuspid Valve: The right ventricular systolic pressure (pulmonary artery | | systolic pressure), as measured by Doppler, is 32.02mmHg.Pulmonic Valve: The pulmonic | | valve is normal.Pulmonic Valve: Trace pulmonic regurgitation.Pericardium: There is no | | pericardial effusion.IVC/Hepatic Veins: The IVC is normal size (1.5-2.5cm) and collapses | | >50% with sniff, consistent with central venous pressures of 5-10mmHg.Aorta: The | | ascending aorta is dilated measuring up to 3.9cm.Mass: No mass visualizedThrombus: No | | clot visualizedThrombus: No vegetation visualized.Septum: No ASD observed.Septum: No VSD | | observed. MEASUREMENTS Ao asc: 3.92 cmIVC: 2.02 cmLA Major: 5.31 | | cmEDV(Teich): 130.15 mlIVSd: 0.93 cmLVIDd: 5.21 cmLVPWd: 0.92 cmLVOT Area: | | 4.77 [id number] Diam: 2.46 cm%FS: 32.86 %EF(Teich): 60.95 %ESV(Teich): 50.81 | | mlLVIDs: 3.49 cmSV(Teich): 79.33 mlRA Major: 5.02 cmRVIDd: 2.72 cmLVEF MOD A2C: | | 62.23 %SV MOD A2C: 66.11 mlLVEF MOD A4C: 62.93 %SV MOD A4C: 92.42 mlEF Biplane: | | 59.80 %LVEDV MOD BP: 122.87 mlLVESV MOD BP: 49.38 mlLVEDV MOD A2C: 106.23 mlLVLd | | A2C: 7.82 cmLVEDV MOD A4C: 146.85 mlLVLd A4C: 8.08 cmLVESV MOD A2C: 40.12 | | mlLVLs A2C: 6.41 cmLVESV MOD A4C: 54.42 mlLVLs A4C: 6.78 cmLAESV(A-L): 78.33 | | mlLAESV Index (A-L): 40.79 ml/m2LAAs A2C: 23.39 [id number] A-L A2C: 83.86 mlLALs | | A2C: 5.53 cmLAAs A4C: 21.73 [id number] A-L A4C: 72.78 mlLALs A4C: 5.50 cmAo Diam: | | 3.70 cmLA Diam: 4.78 cmLA/Ao: 1.28AV maxP.59 mmHgAV meanP.18 mmHgAV | | Vmax: 1.28 m/Hugo Vmean: 0.82 m/Hugo VTI: 25.38 cmAVA Vmax: 2.90 cm2AVA (VTI): | | 3.01 ox4KMIS maxP.43 mmHgLVOT meanP.16 mmHgLVSI Dopp: 39.92 ml/m2LVSV | | Dopp: 76.66 mlLVOT Vmax: 0.77 m/sLVOT Vmean: 0.49 m/sLVOT VTI: 16.04 cmIVRT: | | 117.64 msMV A Kurtis: 0.86 m/sMV Dec St. Clair: 2.72 m/s2MV DecT: 152.57 msMV E Kurtis: | | 0.41 m/sMV E/A Ratio: 0.48MV PHT: 44.24 msMVA By PHT: 4.97 ha7Lnkqxl e': 0.04 | | m/sSeptal E/e': 8.67Lateral e': 0.07 m/sLateral E/e': 5.35RAP: 5 mmHgRVSP: | | 32.02 mmHgTR maxP.02 mmHgTR Vmax: 2.59 m/s Global Supply Chain Vice President: KRUNALuthenticated by: | | SRIDHAR GARCIA MDReport Date/Time: -- [id number]:07 IMPRESSION: 1. Overall | | left ventricular systolic function is normal with, an EF between 60 - 65 %. | |Septum: No ASD observed. | |Septum: No VSD observed. | | | |MEASUREMENTS | | | |Ao asc: 3.92 cm | |IVC: 2.02 cm | |LA Major: 5.31 cm | |EDV(Teich): 130.15 ml | |IVSd: 0.93 cm | |LVIDd: 5.21 cm | |LVPWd: 0.92 cm | |LVOT Area: 4.77 cm2 | |LVOT Diam: 2.46 cm | |%FS: 32.86 % | |EF(Teich): 60.95 % | |ESV(Teich): 50.81 ml | |LVIDs: 3.49 cm | |SV(Teich): 79.33 ml | |RA Major: 5.02 cm | |RVIDd: 2.72 cm | |LVEF MOD A2C: 62.23 % | |SV MOD A2C: 66.11 ml | |LVEF MOD A4C: 62.93 % | |SV MOD A4C: 92.42 ml | |EF Biplane: 59.80 % | |LVEDV MOD BP: 122.87 ml | |LVESV MOD BP: 49.38 ml | |LVEDV MOD A2C: 106.23 ml | |LVLd A2C: 7.82 cm | |LVEDV MOD A4C: 146.85 ml | |LVLd A4C: 8.08 cm | |LVESV MOD A2C: 40.12 ml | |LVLs A2C: 6.41 cm | |LVESV MOD A4C: 54.42 ml | |LVLs A4C: 6.78 cm | |LAESV(A-L): 78.33 ml | |LAESV Index (A-L): 40.79 ml/m2 | |LAAs A2C: 23.39 cm2 | |LAESV A-L A2C: 83.86 ml | |LALs A2C: 5.53 cm | |LAAs A4C: 21.73 cm2 | |LAESV A-L A4C: 72.78 ml | |LALs A4C: 5.50 cm | |Ao Diam: 3.70 cm | |LA Diam: 4.78 cm | |LA/Ao: 1.28 | |AV maxP.59 mmHg | |AV meanP.18 mmHg | |AV Vmax: 1.28 m/s | |AV Vmean: 0.82 m/s | |AV VTI: 25.38 cm | |FLASH Vmax: 2.90 cm2 | |FLASH (VTI): 3.01 cm2 | |LVOT maxP.43 mmHg | |LVOT meanP.16 mmHg | |LVSI Dopp: 39.92 ml/m2 | |LVSV Dopp: 76.66 ml | |LVOT Vmax: 0.77 m/s | |LVOT Vmean: 0.49 m/s | |LVOT VTI: 16.04 cm | |IVRT: 117.64 ms | |MV A Kurtis: 0.86 m/s | |MV Dec [facility] Clair: 2.72 m/s2 | |MV DecT: 152.57 ms | |MV E Kurtis: 0.41 m/s | |MV E/A Ratio: 0.48 | |MV PHT: 44.24 ms | |MVA By PHT: 4.97 cm2 | |Septal e': 0.04 m/s | |Septal E/e': 8.67 | |Lateral e': 0.07 m/s | |Lateral E/e': 5.35 | |RAP: 5 mmHg | |RVSP: 32.02 mmHg | |TR maxP.02 mmHg | |TR Vmax: 2.59 m/s | | | |Global Supply Chain Vice President: MIKE | |Authenticated by: SRIDHAR GARCIA MD | |Report Date/Time: -- [id number]:24:07 | | | |IMPRESSION: | |1. Overall left ventricular systolic function is normal with, an EF between 60 - 65 %. | + + documented in this encounter Visit Diagnoses Not on filedocumented in this encounter"
--- OUTSIDE RECORDS SUMMARY | ~2020-01-09 | XMS | Encounter Summary ---
Demographics + + + | Address | [address] | | | [place] [address] | + + + | Home Phone | | + + + | Preferred Language | Unknown | + + + | Marital Status | | + + + | Yarsanism Affiliation | 1013 | + + + | Race | Unknown | + + + | Ethnic Group | Unknown | + + + Author + + + | Author | [facility] | | | and [place] | + + + | Organization | [facility] | | | [...] Team Providers + +------+ + | Care Radio Equipment Repairer Name | Role | Phone | + [...] + + | 12/23/ | Documentati | [facility] | Yang, | Other (Abdomen | | 2019 | on | NEPHROLOGY SABINA | Bessie Her | pelvis CT 04/27/19) | | | | [address] | Rn Charge | | | | | [address] [place] | | | | | | [address] | | | | | | [phone] | | | +--------+ + + + [...] 2020 | Visit | | [address] [facility] | | | | | | [address] [place] | | | | | | [address] | | | | | | | | +--------+---------+ + + + documented as of this encounter Visit Diagnoses Not on filedocumented in this encounter"
--- OUTSIDE RECORDS SUMMARY | ~2020-01-09 | XMS | Encounter Summary ---
Demographics + + + | Address | [address] | | | [place] [address] | + + + | Home Phone | | + + + | Preferred Language | Unknown | + + + | Marital Status | | + + + | Taoism Affiliation | 1013 | + + + | Race | Unknown | + + + | Ethnic Group | Unknown | + + + Author + + + | Author | [facility] | | | and [place] | + + + | Organization | [facility] | | | [...] Team Providers + +------+ + | Care Cigar Making Machine Supervisor Name | Role | Phone | [...] + + | 07/02/ | Telephone | [facility] | Sridhar Tavarez | Schedule Testing | | 2019 | | CARDIOLOGY [place] | MD [address] | | | | | [address] | [address] | | | | | [place], [place] | [place] [address] | | | | | [address] | [phone] | | | | | [phone] | | | +--------+ + + + [...] | | | | | | [address] [place], [place] | | | | | | [address] | | | | | | | | +--------+---------+ + + + documented as of this encounter Visit Diagnoses Not on filedocumented in this encounter"
--- OUTSIDE RECORDS SUMMARY | ~2020-01-09 | XMS | Encounter Summary ---
Demographics + + + | Address | [address] | | | [place] [address] | + + + | Home Phone | | + + + | Preferred Language | Unknown | + + + | Marital Status | | + + + | Yazdanism Affiliation | 1013 | + + + [...] Team Providers + +------+ + | Care Chrome Worker Name | Role | Phone | [...] | Lumbar | Belle, | [address] | | | | | radiculopath | Brice T, MD | [place], | | | | | y | [address] | [place] | | | | | Procedures | [place] | [address] | | | | | [place] INJECT | [place], [place] | Phone: | | | | | ANES/STEROID | [address] | [phone] | | | | | FORAMEN | Phone: | Fax: | | | | | LUMBAR/SACRA | [phone] | [phone] | | | | | L W IMG | Fax: | | | | | | GUIDE ,1 | [phone] | | | | | | LEVEL [place] | | | | | | | TRIAMCINOLON | | | | | | | E ACET INJ | | | | | | | NOS, 10 MG | | | | | | | bilat L4/l5 | | | | | | | TFESI | | | +--------+--------+ + + + + Encounter Details +--------+ + + + + | Date | Type | Department | Care Team | Description | +--------+ + + + + | 05/25/ | Hospital | [facility] | Steve Vogel, | Lumbar radiculopathy | | 2019 | Encounter | MED CTR XRAY [address] | PA-C [address] | | | | | [place] | [address] [place] | | | | | [place] [address] | [place] [address] | | | | | [phone] | [phone] | | | | | | | | | | | | [place] | | | | | | [place] [...] +---------+ + + | Blood Pressure | 185/104 | 05/25/2019 4:43 PM | | | | | PDT | | + +---------+ + + | Pulse | 90 | 05/25/2019 4:43 PM | | | | | PDT [...] 2019 | Visit | | [address] | | | | | | [address] [place], [place] | | | | | | [address] | | | | | | | | +--------+---------+ + + + documented as of this encounter Procedures + +--------+ + + + | Procedure Name | Priori | Date/Time | Associated Diagnosis | Comments | | | ty | | | | + +--------+ + + + | FL EPIDURAL STEROID | Routin | 05/25/2019 | Lumbar | Results for this | | INJECTION LUMBAR | e | 4:42 PM | radiculopathy | procedure are in [...] dexamethasone (PF) 10 mg/mL | Given | 05/25/20 | 15 mg | | | | injection 15 mg 15 mg, Other, | | 19 4:45 | | | | | ONCE, 05/25/19 at 1700, For 1 | | PM PDT | | | | | dose, When ordered IV push: | | | | | | | Dilute to 10-20 mL with NS and | | | | | | | give slowly over 1-2 minutes., | | | | | | + +--------+ +-------+------+------+ +---+---+ | | | +---+---+ + +-------+ +-------+---+ + | iohexol (OMNIPAQUE 300) 300 | Given | 05/25/20 | 4 mLs | | Other | | mg/mL injection 4 mL 4 mL, | | 19 4:41 | | | (Comment | | INTRATHECAL, ONCE, Sat05/25/19 at | | PM PDT | | | ) | | 1700, For 1 dose | | | | | | + +-------+ +-------+---+ + +---+---+ | | | +---+---+ + +-------+ +-------+---+---+ | lidocaine (PF) 1% injection 2 | Given | 05/25/20 | 2 mLs | | | | mL 2 mL, Other, ONCE, Sat | | 4:45 | | | | | 05/25/19 at 1700, For 1 dose | | PM PDT | | | | + +-------+ +-------+---+---+ +---+---+ | | | +---+---+ + +-------+ +-------+---+ + | lidocaine buffered 0.9% | Given | 05/25/20 | 6 mLs | | Other | | injection 6 mL 6 mL, | | 19 4:37 | | | (Comment | | Intradermal, ONCE, Sat05/25/19 at | | PM PDT | | | ) | | 1700, For 1 dose | | | | | | + +-------+ +-------+---+ + +---+---+ | | | +---+---+ documented in this encounter"
--- OUTSIDE RECORDS SUMMARY | ~2020-01-09 | XMS | Clinical Summary ---
Demographics + + + | Address | [address] | | | [place] [address] | + + + | Home Phone | | + + + | Preferred Language | Unknown | + + + | Marital Status | | + + + | Baptism Affiliation | 1013 | + + + | Race | Unknown | + + + | Ethnic Group | Unknown | + + + Author + + + | Author | [facility] | | | and [place] | + + + | Organization | [facility] | | [...] Team Providers + +------+ + | Care Slag Skimmer Name | Role | Phone | + [...] | questionnaire) | | | | | Road Commissioner | | +--------+ + + + + | 12/23/ | Documentati | Nephrology | Yang, | Other (Abdomen | | 2020 | on | | Bessie Her | pelvis CT 04/27/19) | | | | | Road Commissioner | | +--------+ + + + + | 12/20/ | Office | Nephrology | Pillo Condon MD | Polycystic kidney | | 2019 | Visit | | | (Primary Dx); CKD | | | | | | (chronic kidney | | | | | | disease) stage 3, | | | | | | GFR 30-59 ml/min | | | | | | ([facility]); Persistent | | | | | | [...] ml/min | | | | | | ([facility]); Persistent | | | | | | proteinuria | +--------+ + + + + | 12/15/ | Documentati | Nephrology | Yang, | Results (12/15/19) | | 2020 | on | | [facility] | | | | | | Road Commissioner | | +--------+ + + + + [...] 2019 | Visit | | [address] [facility] | | | | | | [address] [place] | | | | | | [address] | | | | | | | [...] 1.001 - 1.030 | | | | [place], | | | | | | Urine [...] +--------+ +---------+--------+ | MEDICARE | MEDICA | [id number] | | [phone] | | Medica | | | RE | | 012-Pr | 5 | | re | | | PART A | | esent | | | | | | AND B | | | | | | + +--------+ +--------+ +---------+--------+ | MEDICARE | MEDICA | [id number] | 12/18/19 | [phone] | | Medica | | | RE | | 13-Pre | 5 | | re | | | PART A | | sent | | | | | | AND B | | | | | | + +--------+ +--------+ +---------+--------+ | [employer] [place] | MUTUAL | [id number] | 09/19/19 | [phone] | | Indemn | | | AND | | 18-Pre | 0 | | ity | | | [place] | | sent | | | | | | [place] | | | | | | | | MDCR | | | | | | | | SUPPL | | | | | | + +--------+ +--------+ +---------+--------+ | [employer] [place] | MUTUAL | [id number] | 09/19/19 | [phone] | | Indemn | | | AND | | 18-Pre | 0 | | ity | | | [place] | | sent | | | | | | [place] | | | | | | | [...] | | radha | | | 9 ([place]) | [address] | + +--------+ +--------+ + + | Jojo Gracia | Person | Self | [birth year] | [address] | | | al/Fam | | 1945 | [phone] | [place] | | | radha | | | 9 ([place]) | [address] | + +--------+ +--------+ + + Advance Directives + + + + + | Type | Date Recorded | Patient | Explanation | | | | Steeping Press Operator | | + + + + + | Power of | | | | | Kinesiotherapist | | | | + + + + + | Advance | 05/08/2018 11:35 | | | | Directive | AM | | | + + + + +
--- OUTSIDE RECORDS SUMMARY | ~2020-01-09 | XMS | Encounter Summary ---
Demographics + + + | Address | [address] | | | [place] [address] | + + + | Home Phone [...] + | Author | [facility] | | | and [place] | + + + | Organization | [facility] | | | and [...] Team Providers + +------+ + | Care Sales Executive Name | Role | Phone | + +------+ + | Thi Hutton MD | PCP | | + +------+ + Encounter Details +--------+ + + + + | Date | Type | Department | Care Team | Description | +--------+ + + + + | 03/28/ | Orders Only | [facility] | Yeimy Garcia | | | 2014 | | CARDIOLOGY CORI Billings MD [address] | | | | | [address] | [address] | | | | | [facility] [place] | [place] [address] | | | | | [address] | [phone] | | | | | [phone] | | | +--------+ + + + [...] 2019 | Visit | | [address] [facility] | | | | | | [address] [facility], [place] | | | | | | [address] | | | | | | | [...] PS: 30.33 cm/s VERT PS: 40.81 cm/s Stoneworking Sander: MIKE | | | Authenticated by: YEIMY GARCIA MD Report Date/Time: -- | | | [id number]:24:31 | | + + + + + [...] 30.33 | | cm/sVERT PS: 40.81 cm/s Stoneworking Sander: DHAuthenticated by: YEIMY GARCIA [facility] | | Date/Time: -- 08_[id number]_12:24:31 IMPRESSION: 1. No significant stenosis of the [...] |VERT PS: 40.81 cm/s | | | |Stoneworking Sander: MIKE | |Authenticated by: YEIMY GARCIA MD | |Report Date/Time: -- [id number]:24:31 | | | |IMPRESSION: | |1. No significant stenosis of the carotid arteries bilaterally. Vertebral flow is antegrade bilaterally. | + + documented in this encounter Visit Diagnoses Not on filedocumented in this encounter"
--- OUTSIDE RECORDS SUMMARY | ~2020-01-09 | XMS | Encounter Summary ---
Demographics + + + | Address | [address] | | | [place] [address] | + + + | Home Phone | | + + + | Preferred Language | Unknown | + + + | Marital Status | | + + + | Orthodoxy Affiliation | 1013 | + + + | Race | Unknown | + + + | Ethnic Group | Unknown | + + + Author + + + | Author | [facility] | | | and [place] | + + + | Organization | [facility] | | | [...] Team Providers + +------+ + | Care Purler Name | Role | Phone | + [...] | Lumbar | Belle, | [address] | | | | | radiculopath | Brice T, MD | [place], | | | | | y | [address] | [place] | | | | | Procedures | [place] | [address] | | | | | [place] INJECT | [place], [place] | Phone: | | | | | ANES/STEROID | [address] | [phone] | | | | | FORAMEN | Phone: | Fax: | | | | | LUMBAR/SACRA | [phone] | [phone] | | | | | L W IMG | Fax: | | | | | | GUIDE ,1 | [phone] | | | | | | LEVEL [place] | | | | | | | [...] + + | 05/25/ | Hospital | [facility] | Steve Vogel, | Lumbar radiculopathy | | 2019 | Encounter | [facility] [address] | PA-C [address] | | | | | [address] [place] | [address] [place] | | | | | [place] [address] | [place] [address] | | | | | [phone] | [phone] | | | | | | | | | | | | [employer], Ws | | | | | | [...] | | | | | | [address], [place] | | | | | | [address] | | | | | | | [...]
--- OUTSIDE RECORDS SUMMARY | ~2020-01-09 | XMS | Encounter Summary ---
Demographics + + + | Address | [address] | | | [place] [address] | + + + | Home Phone [...] Team Providers + +------+ + | Care Extension Division Director Name | Role | Phone | + +------+ + | Thi Hutton MD | PCP | | + +------+ + Reason for Visit + + + | Reason | Comments | + + + | New Patient | | + + + Encounter Details +--------+ + + + + | Date | Type | Department | Care Team | Description | +--------+ + + + + | 11/28/ | Telephone | [facility] | Mao Herzog MD | New Patient | | 2019 | | [facility] [place] | [address] | | | | | [address] | [address], | | | | | [place] | [place] [address] | | | | | [address] | [phone] | | | | | [phone] | | | +--------+ + + + [...] | | | | | | [address] [place], [place] | | | | | | [address] | | | | | | | | +--------+---------+ + + + documented as of this encounter Visit Diagnoses Not on filedocumented in this encounter"
--- OUTSIDE RECORDS SUMMARY | ~2020-01-09 | XMS | Encounter Summary ---
Demographics + + + | Address | [address] | | | [place] [address] | + + + | Home Phone | | + + + | Preferred Language | Unknown | + + + | Marital Status | | + + + | Latter-Day Affiliation | 1013 | + + + | Race | Unknown | + + + | Ethnic Group | Unknown | + + + Author + + + | Author | [facility] | | | and [place] | + + + | Organization | [facility] | | | [...] Providers + +------+ + | Care Public Transit Specialist Name | Role | Phone | [...] Patient | | 2019 | | [facility] | [address] | | | | | [address] | [address], | | | | | [place] | [place] [address] | | | | | [address] | [phone] | | | | | [phone] | | | +--------+ + + + [...] 2020 | Visit | | [address] [facility] | | | | | | [address] [place], [place] | | | | | | [address] | | | | | | | | +--------+---------+ + + + documented as of this encounter Visit Diagnoses Not on filedocumented in this encounter"
--- OUTSIDE RECORDS SUMMARY | ~2020-01-09 | XMS | Encounter Summary ---
Demographics + + + | Address | [address] | | | [place] [address] | + + + | Home Phone [...] Team Providers + +------+ + | Care Woods Overseer Name | Role | Phone | + +------+ + | Thi Hutton MD | PCP | | + +------+ + Reason for Visit Evaluate & Treat (Routine) + +--------+ + + + + | Status | Reason | Specialty | Diagnoses / | Referred By | Referred To | | | | | Procedures | Contact | Contact | + +--------+ + + + + | Authorized | | Nephrology | Diagnoses | [place] | Pillo Condon | | | | | Polycystic | Trudy Minor, | MD [address] | | | | | kidney, | [address] | | | | | unspecified | [place] | [address] | | | | | | [place], | [place], | | | | | | [place] | [place] [address] | | | | | | [address] | Phone: | | | | | | Phone: | [phone] | | | | | | [phone] | Fax: | | | | | | Fax: | [phone] | | | | | | [phone] | | + +--------+ + + + + Encounter Details +--------+---------+ + + + | Date | Type | Department | Care Team | Description | +--------+---------+ + + + | 12/20/ | Office | [facility] | Pillo Condon MD | Polycystic kidney | | 2020 | Visit | NEPHROLOGY [place] | [address] [place] | (Primary Dx); CKD | | | | [address] | [address] [place], [place] | (chronic kidney | | | | [address] | [address] | disease) stage 3, | | | | [place], [place] | | GFR 30-59 ml/min | | | | [address] | | (HCC); Persistent | | | | [phone] | | proteinuria; | | | | | | Essential (primary) | | | | | | hypertension | +--------+---------+ + + + Social History [...] in this encounter Patient Instructions Patient Instructions Pillo Condon MD - 12/21/2019 2:20 PM PDTDiscussions/Recommendations : I discussed today with Ms. Gracia the meaning of her CKD and the interaction of that with er hypertension. I stressed the importance of keeping her BP controlled and avoiding getting dehydrated i f we are to have a chance at helping preserve her renal function. She showed good understan ding. I gave her instructions on how to chart her blood pressure in the appropriate manner at home. She is to call us if they fall outside of the optimal provided range. She will bring her sphygmomanometer for validation once a year. She will strictly abide by a low salt diet. She will avoid all kinds of NSAIDs for analgesia. Also: I will not change any of her vasoactive meds today. She will report back to me her home BP readings in 2 weeks. At that time, I will decide whether any change to his vasoactive regimen is warranted. I will not send her for a renal & bladder U/S soon, as she had imaging of the kidneys in late 2019. I advised her to exercise regularly but safely & to try to lose weight methodically; She voiced good understanding. She will F/U with your office regularly. She will have a RFP, CBC, uric acid, Urine total lweyqmi-sy-qjwiegdxwn ratio before she comes back in 6 months. documented in this encounter Progress Notes Pillo Condon MD - 12/21/2019 2:20 PM PDT Patient Active Problem List Diagnosis Date Noted POA Polycystic kidney 08/20/2019 Unknown Anemia 08/20/2019 Unknown Hypertension 08/20/2019 Unknown Fracture of left radius 07/19/2018 Unknown Lumbar radiculopathy 06/19/2018 Unknown Spinal stenosis of lumbar region, unspecified whether neurogenic claudication present 1 08/19/2017 Unknown Degenerative disc disease, lumbar 06/19/2018 Unknown Acute midline thoracic back pain 06/19/[address] Hutton: Thank you for the opportunity to see Ms. Gracia in consult today. As you are familiar with r case, I will not state her past history in detail. Briefly, she is a 74 y.o. female patie nt with past history as delineated above. 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 The report of the CT scan from late 2018 is not available for me at this time. She says that she feels 'good ' today. She took Ibuprofen 800 mg daily for decades till she stopped it in late 2018. She's had hypertension since 1990. She denies any blurred vision tinnitus, headache, fever , chills, or cough. No nausea, vomiting, abdominal pain, diarrhea, melena, or hematochezia. No chest pain, palpitation, dizziness, loss of consciousness, orthopnea, paroxysmal noctur nal dyspnea, or leg edema. dysuria, hematuria, incontinence, or symptoms of UTI. She has 0 nightly nocturia. No history of passing kidney stones. The following portions of the patient's history were reviewed and updated as appropriate: a llergies, current medications, past medical history, past social history, past surgical hist ory, family history and problem list. I also reviewed with her the records received from you r office; these were very informative. As in History of Present Illness & in Assessment. All the twelve systems were reviewed and were otherwise negative. Active comorbid conditions include: - hypertension; essential; with renal disease; with CKD stage 1-4 - renal disease; CKD; Stage 3 - obesity; BMI (30-39) - CVA - anemia Past Medical History: Diagnosis Date Anemia Ankle [...] neurogenic claudication present Stroke (HCC) Thyroid condition Past Surgical History: Procedure Laterality Date BLADDER SUSPENSION SECTION PARTIAL HYSTERECTOMY Ovaries remain RECTAL PROLAPSE REPAIR WRIST SURGERY Left Family History Problem Relation Age of Onset Cancer Mother Melanoma Diabetes Mother Heart disease Mother High blood pressure Mother Other (see comment) Father Nayana Gehrig's Disease Alcohol abuse Brother High blood pressure Maternal Grandmother No known problems Brother Social History Socioeconomic History Marital status: Spouse name: Not on file Number of children: Not on file Years of education: Not on file Highest education level: Not on file Occupational History Not on file Social Needs Financial resource strain: Not on file Food insecurity: Worry: Not on file Inability: Not on file Transportation needs: Medical: Not on file Non-medical: Not on file Tobacco Use Smoking status: Never Smoker Smokeless tobacco: Never Used Substance and Sexual Activity Alcohol use: No Drug use: No Sexual activity: Never Lifestyle Physical activity: Days per week: Not on file Minutes per session: Not on file Stress: Not on file Relationships Social connections: Talks on phone: Not on file Gets together: Not on file Attends restorationist service: Not on file Active member of club or organization: Not on file Attends meetings of clubs or organizations: Not on file Relationship status: Not on file Intimate partner violence: Fear of current or ex partner: Not on file Emotionally abused: Not on file Physically abused: Not on file Forced sexual activity: Not on file Other Topics Concern Not on file Social History Narrative Not on file Allergies Allergen Reactions Meperidine Anaphylaxis Morphine Anaphylaxis Codeine Other (See Comments) Reaction not specified in outside medical records Morphine And Related Nausea And Vomiting,Other (See Comments) Blindness and deaf one sided. Muscle Relaxants (Baclofen) Other (See Comments) Reaction not specified in outside medical records Muscle Relaxants (Carisoprodol) Other (See Comments) Reaction not specified in outside medical records Muscle Relaxants (Cyclobenzaprine) Other (See Comments) Reaction not specified in outside medical records Muscle Relaxants (Methocarbamol) Other (See Comments) Reaction not specified in outside medical records Muscle Relaxants (Tizanidine) Other (See Comments) Reaction not specified in outside medical records Narcotic Pain Medications (Morphine And Related) Other (See Comments) Reaction not specified in outside medical records Intolerance No active intolerances/contraindications Current Outpatient Medications: B Complex Vitamins (VITAMIN-B COMPLEX PO), Take by mouth., Disp: , Rfl: cholecalciferol (CHOLECALCIFEROL) 1000 units TABS, Take 2,000 Units by mouth Daily., D isp: , Rfl: DHEA 50 MG TABS, Take 50 mg by mouth Daily., Disp: , Rfl: GRAPE SEED ER PO, Take 100 mg by mouth., Disp: , Rfl: hydroCHLOROthiazide (MICROZIDE) 12.5 MG capsule, Take 1 capsule by mouth Daily., Disp: , Rfl: 4 lisinopril (PRINIVIL,ZESTRIL) 40 MG tablet, Take 40 mg by mouth Daily., Disp: , Rfl: MAGNESIUM PO, Take 200 mg by mouth., Disp: , Rfl: metoprolol succinate (TOPROL-XL) 50 mg 24 hr tablet, TK 1 T PO QD, Disp: , Rfl: 4 Potassium Gluconate 550 MG TABS, Take by mouth., Disp: , Rfl: thyroid (ARMOUR THYROID) 120 MG tablet, Take by mouth., Disp: , Rfl: Physical Exam: BP (!) 148/92 | Pulse 86 | Ht 1.613 m (5' 3.5") | Wt 88.5 kg (195 lb) | SpO2 94% | BMI 34.00 kg/m General appearance: Pleasant, not in acute distress. Neck: Supple without tracheal deviation or jugular venous distension. Head and ENT: Head is atraumatic. The oropharynx is without erythema or thrush. Eyes: Anicteric. The extraocular muscle movements are normal. Lungs: Clear to auscultation bilaterally. There are no wheezes. Heart: Regular rate and rhythm without any rub, gallop. No systolic murmur. Abdominal exam: Soft and nontender with normal bowel sounds. Musculoskeletal: No costovertebral angle tenderness bilaterally. Extremities: Warm to touch with no leg edema. There is no cyanosis. Skin: There are no rashes, petechiae, or ecchymosis. Neurological: Awake, alert, and oriented to time, place, and person. Normal gross motor po wer. There is no asterixis. Psychiatric: The patient s behavior is normal. Judgment and thought content are normal. Lab Results Component Value Date HGB 13.6 12/15/2019 HGB 12.6 11/04/2011 HCT 35.9 11/04/2011 NA 137 12/15/2019 K 4.3 12/15/2019 CL 103 12/15/2019 CO2 22 12/15/2019 BUN 26 (A) 12/15/2019 CREA 1.06 12/15/2019 CALCIUM 9.5 01/08/2019 CALCIUM 8.7 11/04/2011 ALBUMIN 4.2 01/08/2019 EGFR 51.0 (A) 12/15/2019 LABPROT 120.8 12/15/2019 No results for input(s): BUN, CREA, EGFR, NA, K, CL, CO2, CALCIUM, PHOS, MG, ALBUMIN, HGB, HCT, IRON in the last 72 hours. No components found for: MALBRX No components found for: MICROALBUR * I also reviewed with her the report of her spine MRI from 06/16/19: Numerous simple appearing cystic lesions are seen scattered throughout both kidneys. Many o f these are not well characterized. Assessment: Ms. Gracia is a 74 y.o. female patient with multicystic kidney disease: it is unclear yet whet her she has multiple simple cysts or ADPKD. RENAL FUNCTION: sCr is close to normal BLOOD PRESSURE: Reports it controlled BLOOD SUGAR: Reports it normal ELECTROLYTES: ok ANEMIA: none VITAMIN D: To be checked thru your office PARATHYROID HORMONE: To be checked when indicated URIC ACID: PROTEINURIA: minimal URINALYSIS: No significant hematuria; no UTI. VOLUME STATUS: Euvolumic. Discussions/Recommendations: I discussed today with Ms. Gracia the meaning of her CKD and the interaction of that with h er hypertension. I stressed the importance of keeping her BP controlled and avoiding getting dehydrated i f we are to have a chance at helping preserve her renal function. She showed good understan ding. I gave her instructions on how to chart her blood pressure in the appropriate manner at home. She is to call us if they fall outside of the optimal provided range. She will bring her sphygmomanometer for validation once a year. She will strictly abide by a low salt diet. She will avoid all kinds of NSAIDs for analgesia. Also: I will not change any of her vasoactive meds today. She will report back to me her home BP readings in 2 weeks. At that time, I will decide whether any change to his vasoactive regimen is warranted. I will not send her for a renal & bladder U/S soon, as she had imaging of the kidneys in late 2018. I requested the report of such studies from the Radiology dept here at [facility] (I will be sp ecifically looking for whether the cysts are numerous; whether there are any liver cysts). I advised her to exercise regularly but safely & to try to lose weight methodically; She voiced good understanding. She will F/U with your office regularly. She will have a RFP, CBC, uric acid, Urine total iayxdjb-hu-ompocqpflp ratio before she comes back in [address] Hutton for the opportunity to see this patient in consult today. Please do not hesitate to call me at any time with questions or concerns. Truly yours, Pillo Condon MD [facility] ADDENDUM: The report came back; I went back & dicussed it with the patient and answered all of her qu estions to her satisfaction. I reviewed her Triphasic CT from 04/2019: "The kidneys are filled with cysts". "few scattered cysts in the liver". 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 Pillo Condon MD [facility] documented in this enco unter Plan of Treatment +--------+---------+ + + + | Date | Type | Specialty | Care Team | Description | +--------+---------+ + + + | 06/27/ | Office | Nephrology | Pillo Condon MD | | 2019 | Visit | | [address] [facility] | | | | | | [address] [place] | | | | | | [address] | | | | | | | | +--------+---------+ + + + documented as of this encounter Visit Diagnoses + + | Diagnosis | + + | Polycystic kidney - Primary Polycystic kidney, unspecified type | + + | CKD (chronic kidney disease) stage 3, GFR 30-59 ml/min (HCC) Chronic kidney disease, | | Stage III (moderate) | + + | Persistent proteinuria Proteinuria | + + | Essential (primary) hypertension Unspecified essential hypertension | + + documented in this encounter
--- OUTSIDE RECORDS SUMMARY | ~2020-01-09 | XMS | Encounter Summary ---
Demographics + + + | Address | [address] | | | [place] [address] | + + + | Home Phone | | + + + | Preferred Language | Unknown | + + + | Marital Status | | + + + | Jainism Affiliation | 1013 | + + + | Race | Unknown | + + + | Ethnic Group | Unknown | + + + Author + + + | Author | [facility] | | | and [place] | + + + | Organization | [facility] | | [...] Providers + +------+ + | Care Public Health Aide Name | Role | Phone | [...] | | | | | [address] | [address] Phone: | | | | | | [address] | [phone] | | | | | | [place], | Fax: | | | | | | [place] [address] | [phone] | | | | | | Phone: | | | | | | | [phone] | | | | | | | Fax: | | | | | | | [phone] | | +--------+ + + + + [...] | | lumbar | [address] | [place], [place] | | | | | region, | [place], | [address] | | | | | unspecified | [place] | Phone: | | | | | whether | [address] | [phone] | | | | | neurogenic | Phone: | Fax: | | | | | claudication | [phone] | [phone] | | | | | present | Fax: | | | | | | | [phone] | | +--------+--------+ + + + + Encounter Details +--------+---------+ + + + | Date | Type | Department | Care Team | Description | +--------+---------+ + + + | 05/08/ | Office | [facility] | Stefania Gibson | Lumbar radiculopathy | | 2018 | Visit | NEUROSURGERY [address] | [address] | (Primary Dx); | | | | [address] | [address] | Spondylolisthesis of | | | | [place], [place] | [address] [place], [place] | lumbar region; | | | | [address] | [address] | Degenerative disc | | | | [phone] | | disease, lumbar | +--------+---------+ + [...] encounter Patient Instructions Patient Instructions Marisol Solis, Concession Stand Attendant - 05/08/2018 12:30 PM PDTIt was a [...] rent from the original. Kunal Gibson PA-C [address] [place] [address], [address] [place], [place] [address] FAX: [phone] NEUROSURGERY HISTORY AND PHYSICAL EXAMINATION CHIEF COMPLAINT: [...] has no apparent deficits with short or meterman memory. CRANIAL NERVES: Fundoscopic Exam: The optic [...] 2019 | Visit | | [address] [email or web address] [place] | | | | | | [address] [place] | | | | | | [address] | | | | | | | [...]
--- OUTSIDE RECORDS SUMMARY | ~2020-01-09 | XMS | Encounter Summary ---
Demographics + + + | Address | [address] | | | [place] [address] | + + + | Home Phone | | + + + | Preferred Language | Unknown | + + + | Marital Status | | + + + | Sabianism Affiliation | 1013 | + + + | Race | Unknown | + + + | Ethnic Group | Unknown | + + + Author + + + | Author | [facility] | | | and [place] | + + + | Organization | [facility] | | | [...] Providers + +------+ + | Care Electrical Controls Technician Name | Role | Phone | + +------+ + | Thi Htuton MD | PCP | | + +------+ + Encounter Details +--------+ + + + + | Date | Type | Department | Care Team | Description | +--------+ + + + + | 08/20/ | Orders Only | [facility] | Pillo Condon MD | Hypertension, | | 2020 | | NEPHROLOGY [place] | [address] [place] | unspecified type | | | | [address] [place] | [address] [facility] [place] | (Primary Dx); | | | | [address] [place], [place] | [address] | Polycystic kidney | | | | [address] | | | | | | [phone] | | | +--------+ + + + [...] 2020 | Visit | | [address] [facility] | | | | | | [address] [facility] | | | | | | [address] | | | | | | | [...]
--- OUTSIDE RECORDS SUMMARY | ~2020-01-09 | XMS | Encounter Summary ---
Demographics + + + | Address | [address] | | | [place] [address] | + + + | Home Phone [...] Team Providers + +------+ + | Care Insulation Estimator Name | Role | Phone | + +------+ + | Thi Hutton MD | PCP | | + +------+ + Encounter Details +--------+ + + + + | Date | Type | Department | Care Team | Description | +--------+ + + + + | 08/20/ | Documentati | [facility] | Trey, | | | 2019 | on | NEPHROLOGY [place] | Bessie Her | | | | | [address] [place] | [place] | | | | | [address] [place] | | | | | | [address] | | | | | | [phone] | | | +--------+ + + + [...] 2020 | Visit | | [address] [facility] | | | | | | [address] [place], [place] | | | | | | [address] | | | | | | | [...]
--- OUTSIDE RECORDS SUMMARY | ~2020-01-09 | XMS | Encounter Summary ---
Demographics + + + | Address | [address] | | | [place] [address] | + + + | Home Phone [...] Team Providers + +------+ + | Care Sampler Radioactive Waste Name | Role | Phone | + +------+ + | Thi Hutton MD | PCP | | + +------+ + Encounter Details +--------+ + + + + | Date | Type | Department | Care Team | Description | +--------+ + + + + | 03/28/ | Orders Only | [facility] | Sridhar Garcia | | | 2014 | | CARDIOLOGY CORI Billings MD [address] | | | | | [address] | [address] | | | | | [facility] [place] | [place] [address] | | | | | [address] | [phone] | | | | | [phone] | | | +--------+ + + + [...] | Visit | | [address] [facility] | | | | | | [address] [facility] [place] | | | | | | [address] | | | | | | | [...] 0.86 m/s MV | | | Dec Dooly: 2.72 m/s2 MV DecT: 152.57 ms MV [...] | 27.02 mmHg TR Vmax: 2.59 m/s School Administrator: MIKE | | | Authenticated by: SRIDHAR GARCIA MD Report Date/Time: -- | | | [id number] | | + + + + + [...] cmLVPWd: 0.92 cmLVOT Area: | | 4.77 ds2PMLA Diam: 2.46 cm%FS: 32.86 %EF(Teich): 60.95 %ESV(Teich): [...] mlLAESV Index (A-L): 40.79 ml/m2LAAs A2C: 23.39 ia1AAMOX A-L A2C: 83.86 mlLALs | | A2C: 5.53 cmLAAs A4C: 21.73 lz1DBOBI A-L A4C: 72.78 mlLALs A4C: 5.50 cmAo Diam: | | 3.70 cmLA Diam: 4.78 cmLA/Ao: 1.28AV maxP.59 mmHgAV meanP.18 mmHgAV | | Vmax: 1.28 m/Hugo Vmean: 0.82 m/Hugo VTI: 25.38 cmAVA Vmax: 2.90 cm2AVA (VTI): | | 3.01 tt4GKZS maxP.43 mmHgLVOT meanP.16 mmHgLVSI Dopp: 39.92 ml/m2LVSV | | Dopp: 76.66 mlLVOT Vmax: 0.77 m/sLVOT Vmean: 0.49 m/sLVOT VTI: 16.04 cmIVRT: | | 117.64 msMV A Kurtis: 0.86 m/sMV Dec Dooly: 2.72 m/s2MV DecT: 152.57 msMV E Kurtis: | | 0.41 m/sMV E/A Ratio: 0.48MV PHT: 44.24 msMVA By PHT: 4.97 kd0Qwmwdi e': 0.04 | | m/sSeptal E/e': 8.67Lateral e': 0.07 m/sLateral E/e': 5.35RAP: 5 mmHgRVSP: | | 32.02 mmHgTR maxP.02 mmHgTR Vmax: 2.59 m/s School Administrator: KRUNALuthenticated by: | | SRIDHAR GARCIA MDReport Date/Time: -- [id number]:07 IMPRESSION: 1. Overall | | left ventricular [...] A Kurtis: 0.86 m/s | |MV Dec Dooly: 2.72 m/s2 | |MV DecT: 152.57 ms [...] |TR Vmax: 2.59 m/s | | | |School Administrator: MIKE | |Authenticated by: SRIDHAR GARCIA MD | |Report Date/Time: -- [id number]:07 | | | |IMPRESSION: | |1. Overall left ventricular systolic function is normal with, an EF between 60 - 65 %. | + + documented in this encounter Visit Diagnoses Not on filedocumented in this encounter"
--- OUTSIDE RECORDS SUMMARY | ~2020-01-09 | XMS | Encounter Summary ---
Demographics + + + | Address | [address] | | | [place] [address] | + + + | Home Phone | | + + + | Preferred Language | Unknown | + + + | Marital Status | | + + + | Cheondoism Affiliation | 1013 | + + + | Race | Unknown | + + + | Ethnic Group | Unknown | + + + Author + + + | Author | [facility] | | | and [place] | + + + | Organization | [facility] | | | [...] Team Providers + +------+ + | Care Career Developer Name | Role | Phone | + [...] + + | 12/15/ | Documentati | [facility] | Yang, | Results (12/15/19) | | 2020 | on | NEPHROLOGY [place] | [facility] | | | | | [address] | Supervisor Benzene Refining | | | | | [address] [facility] | | | | | | [place], [place] | | | | | | [address] | | | | | | [phone] | | | +--------+ + + + [...] 2020 | Visit | | [address] [facility] | | | | | | [address] [place], [place] | | | | | | [address] | | | | | | | [...] 1.001 - 1.030 | | | | [place], | | | | | | Urine [...]
--- OUTSIDE RECORDS SUMMARY | ~2020-01-09 | XMS | Encounter Summary ---
Demographics + + + | Address | [address] | | | [place] [address] | + + + | Home Phone | | + + + | Preferred Language | Unknown | + + + | Marital Status | | + + + | Bahai Affiliation | 1013 | + + + [...] Team Providers + +------+ + | Care Lever Operator Name | Role | Phone | [...] | Lumbar | Belle, | [address] | | | | | radiculopath | Brice T, MD | [place], | | | | | y | [address] | [place] | | | | | Procedures | [place] | [address] | | | | | MD INJECT | [place] | Phone: | | | | | ANES/STEROID | [address] | [phone] | | | | | FORAMEN | Phone: | Fax: | | | | | LUMBAR/SACRA | [phone] | [phone] | | | | | L W IMG | Fax: | | | | | | GUIDE ,1 | [phone] | | | | | | LEVEL MD | | | | | | | [...] + + | 06/05/ | Hospital | [facility] | Brice Odonnell | Lumbar radiculopathy | | 2018 | Encounter | MED CTR XRAY [address] | T, MD [address] | | | | | [place] | [place], [place] | | | | | [place] [address] | [address] | | | | | [phone] | | | | | | | Promotions Team Leader, [facility] | | | | | | [...] 2020 | Visit | | [address] [facility] | | | | | | [facility] | | | | | | [address] | | | | | | | [...] | | (Comment | | Intradermal, ONCE, [facility] 06/05/18 | | PM PDT | | | ) | | at 1445, For 1 dose | | | | | | + +-------+ +-------+---+ + +---+---+ | | | +---+---+ documented in this encounter"
--- OUTSIDE RECORDS SUMMARY | ~2020-01-09 | XMS | Encounter Summary ---
Demographics + + + | Address | [address] | | | [place] [address] | + + + | Home Phone | | + + + | Preferred Language | Unknown | + + + | Marital Status | | + + + | Restoration Affiliation | 1013 | + + + | Race | Unknown | + + + | Ethnic Group | Unknown | + + + Author + + + | Author | [facility] | | | and [place] | + + + | Organization | [facility] | | | and [...] Team Providers + +------+ + | Care Verification Lead Name | Role | Phone | + +------+ + | Thi Hutton MD | PCP | | + +------+ + Encounter Details +--------+ + + + + | Date | Type | Department | Care Team | Description | +--------+ + + + + | 03/28/ | Orders Only | [facility] | Sridhar Tavarez | | | 2014 | | CARDIOLOGY CORI Billings MD [address] | | | | | NUC MED [address] | [address] [place] | | | | | [place] | [place] [address] | | | | | [place], [place] | [phone] | | | | | [address] | | | | | | [phone] | | | +--------+ + + + [...] 2019 | Visit | | [address] [facility] | | | | | | [address] [place], [place] | | | | | | [address] | | | | | | | [...] Performed At | + + + | [facility] Nuclear Treadmill Stress Test | | [...] achieved: 146 bpm, Max BP: 184/97. RPP: 24249. METS: 4.60.Symptoms | | | severe shortness [...] Harry Em Conversion - 04/10/2019 12:43 PM [facility] | | Treadmill Stress Test TEST DATE: [...] achieved: 146 bpm, Max BP: 184/97. RPP: 62274. METS: 4.60.Symptoms severe | | shortness of [...]
--- OUTSIDE RECORDS SUMMARY | ~2020-01-09 | XMS | Encounter Summary ---
Demographics + + + | Address | [address] | | | [place] [address] | + + + | Home Phone | | + + + | Preferred Language | Unknown | + + + | Marital Status | | + + + | Voodoo Affiliation | 1013 | + + + [...] Team Providers + +------+ + | Care Ent Consultant Name | Role | Phone | + +------+ + | Thi Hutton MD | PCP | | + +------+ + Encounter Details +--------+ + + + + | Date | Type | Department | Care Team | Description | +--------+ + + + + | 05/08/ | [facility] | [facility] | Machine Installer, Stefania | Lumbar radiculopathy | | 2018 | Encounter | MED CTR XRAY [address] | TAMIE Steinberg [address] | | | | | [place] | [facility] | | | | | [place] [address] | [address] [place] | | | | | [phone] | [address] | | | | | | | [...] 2019 | Visit | | [address] [facility] | | | | | | [address] [place] | | | | | | [address] | | | | | | | [...]
--- OUTSIDE RECORDS SUMMARY | ~2020-01-09 | XMS | Encounter Summary ---
Demographics + + + | Address | [address] | | | [place] [address] | + + + | Home Phone | | + + + | Preferred Language | Unknown | + + + | Marital Status | | + + + | Taoism Affiliation | 1013 | + + + | Race | Unknown | + + + | Ethnic Group | Unknown | + + + Author + + + | Author | [facility] | | | and [place] | + + + | Organization | [facility] | | | and [...] Team Providers + +------+ + | Care Assistant Boys Track Coach Name | Role | Phone | + [...] | [place], [place] | [place] [address] | | | | | [address] | [phone] | | | | | [phone] | | | +--------+ + + + [...] 2020 | Visit | | [address] [facility] | | | | | | [address] [place] | | | | | | [address] | | | | | | | [...]
--- OUTSIDE RECORDS SUMMARY | ~2020-01-09 | XMS | Encounter Summary ---
Demographics + + + | Address | [address] | | | [place] [address] | + + + | Home Phone | | + + + | Preferred Language | Unknown | + + + | Marital Status | | + + + | Baptism Affiliation | 1013 | + + + | Race | Unknown | + + + | Ethnic Group | Unknown | + + + Author + + + | Author | [facility] | | | and [place] | + + + | Organization | [facility] | | [...] Team Providers + +------+ + | Care Check Out Cashier Name | Role | Phone | + [...] | | | | [place] | [place] [address] | | | | | | [address] | Phone: | | | | | | Phone: | [phone] | | | | | | [phone] | Fax: | | | | | | Fax: | [phone] | | | | | | [phone] | | + +--------+ + + + + Encounter Details +--------+---------+ + + + | Date | Type | Department | Care Team | Description | +--------+---------+ + + + | 12/20/ | Office | [facility] | Pillo Condon MD | Polycystic kidney | | 2020 | Visit | NEPHROLOGY [place] | [address] [place] | (Primary Dx); CKD | | | | [address] | [address] [place], [place] | (chronic kidney | | | | [address] | [address] | disease) stage 3, | | | | [place], [place] | | GFR 30-59 ml/min | | | | [address] | | (HCC); Persistent | | | | [phone] | | proteinuria; | | | | [...] a RFP, CBC, uric acid, Urine total zriwnql-wl-uovuswqqup ratio before she comes back in 6 [...] file Gets together: Not on file Attends sikh service: Not on file Active member of [...] studies from the Radiology dept here at [facility] (I will be sp ecifically looking for whether the cysts are numerous; whether there are any liver cysts). I advised her to exercise regularly but safely & to try to lose weight methodically; She voiced good understanding. She will F/U with your office regularly. She will have a RFP, CBC, uric acid, Urine total aoqqsph-uj-dtckvdsoej ratio before she comes back in [address] Hutton for the opportunity to see this patient in consult today. Please do not hesitate to call me at any time with questions or concerns. Truly yours, Pillo Condon MD [facility] ADDENDUM: The report came back; I went back & dicussed it with the patient and answered all of her qu estions to her satisfaction. I reviewed her Triphasic CT from 04/2019: "The kidneys are filled with cysts". "few scattered cysts in the liver". 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 Pillo Condon MD [facility] documented in this enco unter Plan of Treatment +--------+---------+ + + + | Date | Type | Specialty | Care Team | Description | +--------+---------+ + + + | 06/27/ | Office | Nephrology | Pillo Condon MD | | 2019 | Visit | | [address] [facility] | | | | | | [address] [place] | | | | | | [address] | | | | | | | [...]
--- OUTSIDE RECORDS SUMMARY | ~2020-01-09 | XMS | Encounter Summary ---
Demographics + + + | Address | [address] | | | [place] [address] | + + + | Home Phone | | + + + | Preferred Language | Unknown | + + + | Marital Status | | + + + | Jainism Affiliation | 1013 | + + + | Race | Unknown | + + + | Ethnic Group | Unknown | + + + Author + + + | Author | [facility] | | | and [place] | + + + | Organization | [facility] | | [...] Team Providers + +------+ + | Care Prescription Eyeglass Maker Name | Role | Phone | + +------+ + PCP | Unavailable | + +------+ + Encounter Details +--------+ + + + + | Date | Type | Department | Care Team | Description | +--------+ + + + + | 04/28/ | [facility] | [facility] | Conversion | Dyspnea | | 2015 | Encounter | PULMONARY FUNCTION | Transaction, | | | | | LAB [address] | Provider Unknown | | | | | [place] | [phone] | | | | | [address] | | | | | | [phone] | | | +--------+ + + + [...] | | | | | | [address] [place], [place] | | | | | | [address] | | | | | | | | +--------+---------+ + + + documented as of this encounter Visit Diagnoses + + | Diagnosis | + + | Dyspnea Other dyspnea and respiratory abnormality | + + documented in this encounter"
--- OUTSIDE RECORDS SUMMARY | ~2020-01-09 | XMS | Encounter Summary ---
Demographics + + + | Address | [address] | | | [place] [address] | + + + | Home Phone [...] Team Providers + +------+ + | Care Inspector Coated Fabrics Name | Role | Phone | + [...] | | | GENERIC CONV DEPT | [place] [address] | | | | | [address] | [phone] | | | | | [place], [place] | | | | | | [address] | | | | | | [phone] | | | +--------+ + + + [...] [place] | | | | | | [address] | | | | | | | | +--------+---------+ + + + documented as of this encounter Visit Diagnoses Not on filedocumented in this encounter"
--- OUTSIDE RECORDS SUMMARY | ~2020-01-09 | XMS | Encounter Summary ---
Demographics + + + | Address | [address] | | | [place] [address] | + + + | Home Phone [...] Phone | + + +---------+ + | Seu Grupo | ECON | Unknown | | + + +---------+ + Care Team Providers + +------+ + | Care Electrical Engineering Manager Name | Role | Phone | [...] | | | | | [address]RE[address] | [address] Phone: | | | | | | [address] | [phone] | | | | | | [place], | Fax: | | | | | | [place] [address] | [phone] | | | | | | Phone: | | | | | | | [phone] | | | | | | | Fax: | | | | | | | [phone] | | +--------+ + + + + + Encounter Details +--------+---------+ + + + | Date | Type | Department | Care Team | Description | +--------+---------+ + + + | 04/23/ | Office | [facility] | Steve Vogel, | Lumbar radiculopathy | | 2019 | Visit | PHYSIATRY [address] | PA-C [address] | (Primary Dx) | | | | [address] | [address] [place] | | | | | [place], [place] | [place] [address] | | | | | [address] | [phone] | | | | | [phone] | | | +--------+---------+ + + + [...] of the procedure you must provide a ambulance driver to take you home. Common Spine [...] disk, and irritate nerves. Date Last Reviewed: 01/17/201819991139-1602 [employer]. [address] [place] [address], [place] [address]. All [facility] ts reserved. This information is not intended as a substitute for professional medical care. Always follow your healthcare professional's instructions. documented in this encounter Progress Notes Steve Vogel PA-C - 04/23/2019 1:00 PM PDTFormatting of this note might be different fro m the original. Steve Vogel PA-C [address] [place] [address], [address] [place], [place] [id number] FAX: CHIEF COMPLAINT: Chief Complaint Patient presents [...] no apparent deficits with short or terminal carman memory. The cranial nerves appear grossly intact. [...] PT (multiple sessions over the years) and care worker. Unfortunately Jooj Gracia continues to have significant discomfort. It [...] 2019 | Visit | | [address] [facility] | | | | | | [address] [place] | | | | | | [address] | | | | | | | [...] + | Performing | Address | City/State/[facility] Cent[facility]ode | Phone Number | | Organization | [...]
--- OUTSIDE RECORDS SUMMARY | ~2020-01-09 | XMS | Encounter Summary ---
Demographics + + + | Address | [address] | | | [place] [address] | + + + | Home Phone | | + + + | Preferred Language | Unknown | + + + | Marital Status | | + + + | Gnosticist Affiliation | 1013 | + + + | Race | Unknown | + + + | Ethnic Group | Unknown | + + + Author + + + | Author | [facility] | | | and [place] | + + + | Organization | [facility] | | | [...] Team Providers + +------+ + | Care Healthcare Architect Name | Role | Phone | + [...] | | [address] | [place] [address] | location, | | | | [place] | [phone] | unspecified back | | | | [address] | | pain laterality, | | | | [phone] | | unspecified | | | | [...] 2019 | Visit | | [address] [facility] [place] | | | | | | [address] [place], [place] | | | | | | [address] | | | | | | | [...]
--- OUTSIDE RECORDS SUMMARY | ~2020-01-09 | XMS | Encounter Summary ---
Demographics + + + | Address | [address] | | | [place] [address] | + + + | Home Phone | | + + + | Preferred Language | Unknown | + + + | Marital Status | | + + + | Jain Affiliation | 1013 | + + + | Race | Unknown | + + + | Ethnic Group | Unknown | + + + Author + + + | Author | [facility] | | | and [place] | + + + | Organization | [facility] | | | [...] Team Providers + +------+ + | Care Hook Up Driver Name | Role | Phone | + [...] | Lumbar | Belle, | [address] | | | | | radiculopath | Brice T, MD | [place], | | | | | y | [address] | [place] | | | | | Procedures | [place] | [address] | | | | | ID [id number] | [place], [place] | Phone: | | | | | DX/THER SBST | [address] | [phone] | | | | | INTRLMNR | Phone: | Fax: | | | | | LMBR/SAC | [phone] | [phone] | | | | | W/IMG GDN | Fax: | | | | | | [place] | [phone] | | | | | | TRIAMCINOLON [...] + + | 11/12/ | Hospital | [facility] | JaspreetSteve reardon, | Lumbar radiculopathy | | 2019 | Encounter | MED CTR XRAY [address] | PA-C [address] | | | | | [place] | [address] [place] | | | | | [place] [address] | [place] [address] | | | | | [phone] | [phone] | | | | | | | | | | | | [place], [facility] | | | | | | [...] | | | | | | [address] [place] | | | | | | [address] | | | | | | | [...]
--- OUTSIDE RECORDS SUMMARY | ~2020-01-09 | XMS | Encounter Summary ---
Demographics + + + | Address | [address] | | | [place] [address] | + + + | Home Phone [...] + | Author | [facility] | | | and [place] | + + + | Organization | [facility] | | | and [...] Team Providers + +------+ + | Care Marketing Account Executive Name | Role | Phone | [...] | Required | | radiculopath | Katiana, [facility] | | | | | y Spinal | PA-C [address] | [address] | | | | | stenosis of | [address], | AVE | | | | | lumbar | [address] | [place], [place] | | | | | region, | [place], [place] | [address] | | | | | unspecified | [address] | Phone: | | | | | whether | Phone: | [phone] | | | | | neurogenic | [phone] | Fax: | | | | | claudication | Fax: | [phone] | | | | | present | [phone] | | | | | | Degenerative [...] [place] | | | | | | [place] | [address] Phone: | | | | | | [place] [address] | [phone] | | | | | | [place], | Fax: | | | | | | [place] [address] | [phone] | | | | | | Phone: | | | | | | | [phone] | | | | | | | Fax: | | | | | | | [phone] | | +--------+ + + + + + Encounter Details +--------+---------+ + + + | Date | Type | Department | Care Team | Description | +--------+---------+ + + + | 06/19/ | Office | [facility] | Shaylacz, | Lumbar | | 2018 | Visit | PHYSIATRY [address] | TAMIE Saab [address] | radiculopathy; | | | | [address] | [address] | Spinal stenosis of | | | | [address] | [place] [address] | lumbar region, | | | | [address] | [phone] | unspecified whether | | | | [phone] | | neurogenic | | | | [...] of blood sugars if you are diabetic. salvage determiner risk can lead to osteoporosis which is [...] of the procedure you must provide a transportation driver to take you home. For all procedur es it is recommended that someone else drive you home. documented in this encounter Progress Notes Katiana Meza PA-C - 06/19/2018 1:40 PM PDTFormatting of this note might be differe nt from the original. Katiana Meza PA-C [address] [facility], [address] [place], [place] [address] FAX: PHYSICAL MEDICINE AND REHABILITATION H&P CHIEF [...] has no apparent deficits with short or alf memory. She has appropriate fund of knowledge [...] PT (multiple sessions over the years) and auto care center manager. Unfortunately she continue s to have significant [...] daniella was sent to the rack in [place]. The patient will follow-up 2 months after [...] 2020 | Visit | | [address] [facility] | | | | | | 160 [place], [place] | | | | | | [address] | | | | | | | [...]
[~2020-01-09 12:10] MED LIST changes: +HYDROCHLOROTH12.5 M1 PO; +KETOROLAC TROME10 MG PO; +LISINOPRIL20 MG PO; +METOPROLOL SUCC25 MG PO
== END 2020-01-09 13:31 | disposition home or self-care (01) ==
LOC: ED 12:10
DX: S82.64XA Nondisplaced fracture of lateral malleolus of right fibula, initial encounter for closed fracture (principal); E03.9 Hypothyroidism, unspecified; I10 Essential (primary) hypertension; Z91.041 Radiographic dye allergy status; Z88.5 Allergy status to narcotic agent; Z88.7 Allergy status to serum and vaccine; Z79.899 Other long term (current) drug therapy; X50.9XXA Other and unspecified overexertion or strenuous movements or postures, initial encounter
CPT/HCPCS: 73610; 99283-25